=== PATIENT | female | born 1945 | race Caucasian/White ===

== ENCOUNTER 2016-06-14 16:34 | Emergency (ER) | payer MEDICARE, OTHER ==
[2016-06-14] MEDS ORDERED: Dextrose 50% Syringe 50 ML* 25 GM/50 ML SYRINGE ONE ×2 (16:46→16:47)
[2016-06-14 17:43] LABS: Hematocrit 42 % (35-47); Hemoglobin 13.9 g/dl (12.0-16.0); Mean Corpuscular HGB Conc 33 g/dl (31-36); Mean Corpuscular Hemoglobin 30 pg (27-31); Mean Corpuscular Volume 92 fL (80-97); Mean Platelet Volume 9 um3 (7.4-10.4); Red Blood Count 4.57 10^6/ul (4.0-5.4); Red Cell Distribution Width 14 % (10.5-15); White Blood Count 8.7 10^3/ul (3.5-10.8)
[2016-06-14 17:56] LABS: Albumin 4.2 g/dL (3.2-5.2); BUN/Creatinine Ratio 20.8 (8-20); Calcium 9.6 mg/dL (8.6-10.3); EGFR African American 69.7 (>60); EGFR Non-African American 54.2 (>60); Globulin 2.7 g/dL (2-4); Total Bilirubin 0.3 mg/dL (0.2-1.0); Total Protein 6.9 g/dL (6.4-8.9)
[2016-06-14 17:59] VITALS: BP 110/46
[2016-06-14 18:06] LABS: Potassium 3.8 mmol/L (3.5-5.0)
--- NOTE | 2016-06-14 19:07 | ED ---
Elsi Bojorquez Anna, scribed for Meño Andre MD on 06/14/16 at 1650 . Altered Mental Status - HPI Summary HPI Summary: Patient is a 71 y/o female coming to [facility] presenting with AMS that began today. She was found in the parking lot in her car. She reports that she did eat today. She is also experiencing diaphoresis. Denies CP, SOB, TRAN, dizziness. She came to the hospital to see her . LEVEL 5 CAVEAT UNABLE TO OBTAIN FULL HISTORY DUE TO ALTERED STATUS. - History Of Current Complaint Stated Complaint: AMS Hx Obtained From: Patient, EMS - Allergies/Home Medications Allergies/Adverse Reactions: Allergies Allergy/AdvReac Type Severity Reaction Status Date / Time Atorvastatin [From Lipitor] Allergy Intermediate GI Upset Verified 05/14/15 08: 33 Amoxicillin [From Augmentin] Allergy Nausea Verified 05/14/15 08:33 Clavulanic Acid Allergy Nausea Verified 05/14/15 08:33 [From Augmentin] Codeine Allergy Nausea Verified 05/14/15 08:33 Levofloxacin [From Levaquin] Allergy GI Upset Verified 05/14/15 08:33 Rosuvastatin [From Crestor] Allergy SORE THROAT Verified 05/14/15 08:33 Simvastatin [From Zocor] Allergy MYALGIA Verified 05/14/15 08:33 Tramadol Allergy N/V Verified 05/14/15 08:33 Venlafaxine [From Effexor] Allergy GI Upset Verified 05/14/15 08:33 PMH/Surg Hx/FS Hx/Imm Hx Endocrine/Hematology History: Reports: Hx Diabetes, Hx Thyroid Disease - hypothyroid, Other Endocrine/Hematological Disorders - Mingo's disease Denies: Hx Unexplained Bleeding Cardiovascular History: Denies: Hx Coronary Artery Disease, Hx Deep Vein Thrombosis, Hx Hypercholesterolemia, Hx Hypotension, Hx Hypertension, Hx Pacemaker/ICD, Hx Peripheral Vascular Disease, Hx Rheumatic Fever, Hx Syncope, Hx Valvular Heart Disease, Other Cardiovascular Problems/Disorders Respiratory History: Denies: Hx Asthma, Hx Chronic Bronchitis, Hx Chronic Obstructive Pulmonary Disease (COPD), Hx Cystic Fibrosis, Hx Lung Cancer, Hx Pleural Effusion, Hx Pneumonia, Hx Pulmonary Edema, Hx Pulmonary Embolism, Hx Seasonal Allergies, Hx Sleep Apnea, Other Respiratory Problems/Disorders Musculoskeletal History: Denies: Hx Osteoporosis Sensory History: Reports: Hx Cataracts - removed, Hx Contacts or Glasses Denies: Hx Hearing Aid Opthamlomology History: Reports: Hx Cataracts - removed, Hx Contacts or Glasses Neurological History: Denies: Hx Dementia, Hx Developmental Delay, Hx Headaches, Hx Migraine, Hx Seizures, Hx Spinal Cord Injury, Hx Transient Ischemic Attacks (TIA), Other Neuro Impairments/Disorders - Cancer History Hx Chemotherapy: No Hx Radiation Therapy: No - Surgical History Surgery Procedure, Year, and Place: . tubal Hx Anesthesia Reactions: No - Immunization History Date of Tetanus Vaccine: UNK Date of Influenza Vaccine: Fall 2011 Infectious Disease History: Denies: Hx Clostridium Difficile, Hx Hepatitis, Hx Human Immunodeficiency Virus (HIV), Hx of Known/Suspected MRSA, Hx Shingles, Hx Tuberculosis, Hx Known/ Suspected VRE, Hx Known/Suspected VRSA, History Other Infectious Disease, Traveled Outside the [place] in Last 30 Days - Family History Known Family History: Positive: Diabetes - Social History Occupation: Retired Lives: With Family Alcohol Use: None Substance Use Type: Reports: None Smoking Status (MU): Never Smoked Tobacco Review of Systems - ROS Summary Review of Systems Summary: LEVEL 5 CAVEAT UNABLE TO OBTAIN FULL HISTORY DUE TO ALTERED STATUS. Positive: Skin Diaphoresis Negative: Chest Pain Negative: Shortness Of Breath Neurological: Other - AMS, denies dizziness Negative: Headache All Other Systems Reviewed And Are Negative: No Physical Exam - Summary Physical Exam Summary: VITAL SIGNS: Reviewed. GENERAL: Patient is a well developed and nourished female who is slightly confused. who is lying comfortable in the stretcher. Patient is not in any acute respiratory distress. HEAD AND FACE: No signs of trauma. No ecchymosis, hematomas or skull depressions. No sinus tenderness. EYES: PERRLA, EOMI x 2, No injected conjunctiva, no nystagmus. EARS: Hearing grossly intact. Ear canals and tympanic membranes are within normal limits. MOUTH: Oropharynx within normal limits. NECK: Supple, trachea is midline, no adenopathy, no JVD, no carotid bruit, no c- spine tenderness, neck with full ROM. CHEST: Symmetric, no tenderness at palpation LUNGS: Clear to auscultation bilaterally. No wheezing or crackles. CVS: Regular rate and rhythm, S1 and S2 present, no murmurs or gallops appreciated. ABDOMEN: Soft, non-tender. No signs of distention. No rebound no guarding, and no masses palpated. Bowel sounds are normal. EXTREMITIES: FROM in all major joints, no edema, no cyanosis or clubbing. NEURO: Alert and oriented x 3. No acute neurological deficits. Speech is normal and follows commands. SKIN: Dry and warm, diaphoretic and clammy. Vital Signs On Initial Exam: Initial Vitals Temp Pulse Resp BP Pulse Ox 97.2 F 63 18 125/86 100 06/14/16 17:10 06/14/16 17:10 06/14/16 17:10 06/14/16 17:10 06/14/16 17:10 Diagnostics - Vital Signs Vital Signs Temp Pulse Resp BP Pulse Ox 06/14/16 17:10 97.2 F 63 18 125/86 100 - Laboratory Result Diagrams: 06/14/16 16:45 06/14/16 16:45 Lab Statement: Any lab studies that have been ordered have been reviewed, and results considered in the medical decision making process. Altered Mental Statu Course/Dx - Course Assessment/Plan: Patient is a 71 y/o female coming to [facility] presenting with AMS that began today. She was found in the parking lot in her car. She reports that she did eat today. She is also experiencing diaphoresis. Denies CP, SOB, TRAN, dizziness. FS shows glucose of 31. She was given an amp of D50 and now she is A+Ox3. She is back to her baseline. She reports she has hx IDDM and she is in an insulin pump. SHe reports eating 2 hours prior to this episode. Blood work wnl except for hypoglycemia. FS is 126. SHe continues to alert and oriented x 3. I discussed all my findings and test results with the patient. Patient understands and agrees. Patient was instructed to return to the emergency room immediately if any of the symptoms return or worsens. Patient understands and agrees. Plan of care was discussed with the patient and patient understands and agrees with the plan of care. All questions were answered at patient satisfaction. There were no further complaints or concerns. Patient was instructed to follow up with primary care - Diagnoses Differential Diagnosis/HQI/PQRI: Hypoglycemia, Intracranial Bleed, Medication Reaction Discharge Diagnoses: hypoglycemic episode Discharge - Discharge Plan Condition: Stable Disposition: HOME Patient Education Materials: Diabetic Hypoglycemia (ED) Referrals: Sheri Calderon MD [Primary Care Provider] - Additional Instructions: Follow up with primary care physician within 48 hours. Return to the emergency department for changing or worsening symptoms. The documentation as recorded by the Elsi avalos Anna accurately reflects the service I personally performed and the decisions made by , Meño Andre MD.
== END 2016-06-14 17:56 | disposition home or self-care (01) ==
LOC: ED 16:34
DX: E16.1 Other hypoglycemia (principal); R41.82 Altered mental status, unspecified; Z88.0 Allergy status to penicillin; Z88.6 Allergy status to analgesic agent
CPT/HCPCS: 36415; 80053; 85025; 99282

== ENCOUNTER 2016-07-15 08:45 | Emergency (ER) | payer MEDICARE, OTHER ==
[2016-07-15 08:50] VITALS: BP 115/77
[2016-07-15] MEDS ORDERED: NS 0.9% 1000 ML* 1,000 ML IV ONE (10:02)
[2016-07-15] MEDS ORDERED: Ondansetron INJ* 2 MG/ML VIAL IV ONE (10:06)
[2016-07-15 10:18] LABS: Hematocrit 43 % (35-47); Hemoglobin 13.8 g/dl (12.0-16.0); Mean Corpuscular HGB Conc 33 g/dl (31-36); Mean Corpuscular Hemoglobin 30 pg (27-31); Mean Corpuscular Volume 92 fL (80-97); Mean Platelet Volume 9 um3 (7.4-10.4); Red Blood Count 4.62 10^6/ul (4.0-5.4); Red Cell Distribution Width 14 % (10.5-15); White Blood Count 5.8 10^3/ul (3.5-10.8)
--- NOTE | 2016-07-15 10:30 | RAD ---
HISTORY: Altered mental status COMPARISONS: March 30, 2013 VIEWS:1: Single frontal portable view of the chest at 10:20 AM FINDINGS: LINES AND TUBES: None. CARDIOMEDIASTINAL SILHOUETTE: The cardiomediastinal silhouette is normal for portable technique. PLEURA: The costophrenic angles are sharp. No pleural abnormalities are noted. LUNG PARENCHYMA: The lungs are clear. ABDOMEN: The upper abdomen is clear. There is no subphrenic gas. BONES AND SOFT TISSUES: No bone or soft tissue abnormalities are noted. IMPRESSION: NO ACTIVE CARDIOPULMONARY DISEASE.
[2016-07-15 10:31] LABS: Albumin 3.9 g/dL (3.2-5.2); BUN/Creatinine Ratio 20.9 (8-20); C Reactive Protein 1.08 mg/L (< 5.00); Calcium 9.4 mg/dL (8.6-10.3); EGFR African American 78.6 (>60); EGFR Non-African American 61.1 (>60); Globulin 2.6 g/dL (2-4); Magnesium 2.2 mg/dL (1.9-2.7); Potassium 3.8 mmol/L (3.5-5.0); Total Bilirubin 0.5 mg/dL (0.2-1.0); Total Protein 6.5 g/dL (6.4-8.9)
--- NOTE | 2016-07-15 10:37 | RAD ---
HISTORY: Altered mental status COMPARISONS: September 02, 2005 TECHNIQUE: Multiple contiguous axial CT scans were obtained of the head without intravenous contrast. FINDINGS: HEMORRHAGE/INFARCT: There is no hemorrhage or acute infarct. MASSES/SHIFT: There is no mass or shift. EXTRA-AXIAL SPACES: There are no extra-axial fluid collections. SULCI AND VENTRICLES: The sulci and ventricles are normal in size and position for the patient's stated age. CEREBRUM: There are no focal parenchymal abnormalities. BRAINSTEM: There are no focal parenchymal abnormalities. CEREBELLUM: There are no focal parenchymal abnormalities. VESSELS: The vessels are grossly normal. PARANASAL SINUSES: The paranasal sinuses are clear. ORBITS: The orbits are unremarkable. BONES AND SOFT TISSUE: No bone or soft tissue abnormalities are noted. OTHER: None IMPRESSION: NO ACUTE INTRACRANIAL PATHOLOGY.
[2016-07-15 10:40] LABS: TSH (Thyroid Stimulating Horm) 2.49 mcIU/mL (0.34-5.60)
[2016-07-15] MEDS ORDERED: Dextrose 50% Syringe 50 ML* 25 GM/50 ML SYRINGE IV PUSH ONE (16:11)
[2016-07-15] MEDS ORDERED: Dextrose 50% Syringe 50 ML* 25 GM/50 ML SYRINGE ONE (16:12)
--- NOTE | 2016-07-15 20:05 | ED ---
IElsi Anna, scribed for Marvin Alexander MD on 07/15/16 at 1657 . Progress - Progress Note Progress Note: Patient was signed out from Dr. Smith at shift change. Patient's glucose was 170 initially and is now 37. Her insulin pack was removed. Re-Evaluation - Re-Evaluation First Eval Re-Evaluation Time: 16:58 Change: Improved Comment: Patient is no longer confused. Discussed results. Patient reports that she normally adjusts her insulin pump on her own. She does not remember being in an altered state this morning, and she says she has not eaten anything today. Course/Dx - Course Course Of Treatment: Radha Wright was turned over to me at change of shift. She was thought to have been hypoglycemic this AM and she was being observed. She became hypoglycemic here and symptomatic. She was given D50, her insulin pump was shut off and she had a sandwich. She recovered nicely and is very familiar with the pump and will adjust it down a bit and F/U with Dr. Calderon. She was D/C'd in stable condition with a diagnosis of hypoglycemia. - Diagnoses Provider Diagnoses: Altered mental state - Provider Notifications Discussed Care Of Patient With: Dr. Calderon (PCP) at 1724. Discussed patient results and treatment in the ED course. The documentation as recorded by the Elsi avalos Anna accurately reflects the service I personally performed and the decisions made by me, Marvin Alexander MD.
--- NOTE | 2016-07-18 06:57 | PN ---
Progress Note - Progress Note Note: stool cultures came back negative for shiga, c-diff, and cryptosporidium/ giardia. Patient was not placed on antibiotic and does not need to be at this time. No changes have to be made due to negative stool culture.
--- NOTE | 2016-08-02 21:18 | ED ---
Darrick Bojorquez Salem, scribed for Jacinto Smith MD on 07/15/16 at 1230 . Altered Mental Status - HPI Summary HPI Summary: Patient is a 71 y/o female who presents to the ED with AMS since earlier today. She reports nausea and vomiting, chills, but denies fever. She has Type 1 DM and suspects hypoglycemia as the cause of her AMS. She denies any focal weakness. - History Of Current Complaint Chief Complaint: EDAltMentalStatus Stated Complaint: AMS Time Seen by Provider: 07/15/16 08:52 Hx Obtained From: Patient Onset/Duration: Resolved Severity Initially: Moderate Severity Currently: Moderate Aggravating Factor(s): Nothing Alleviating Factor(s): Glucose Associated Signs And Symptoms: Positive: Nausea, Vomiting. Negative: Fever - Allergies/Home Medications Allergies/Adverse Reactions: Allergies Allergy/AdvReac Type Severity Reaction Status Date / Time Atorvastatin [From Lipitor] Allergy Intermediate GI Upset Verified 07/15/16 08: 45 Amoxicillin [From Augmentin] Allergy Nausea Verified 07/15/16 08:45 Clavulanic Acid Allergy Nausea Verified 07/15/16 08:45 [From Augmentin] Codeine Allergy Nausea Verified 07/15/16 08:45 Levofloxacin [From Levaquin] Allergy GI Upset Verified 07/15/16 08:45 Rosuvastatin [From Crestor] Allergy SORE THROAT Verified 07/15/16 08:45 Simvastatin [From Zocor] Allergy MYALGIA Verified 07/15/16 08:45 Tramadol Allergy N/V Verified 07/15/16 08:45 Venlafaxine [From Effexor] Allergy GI Upset Verified 07/15/16 08:45 PMH/Surg Hx/FS Hx/Imm Hx Endocrine/Hematology History: Reports: Hx Diabetes, Hx Thyroid Disease - hypothyroid, Other Endocrine/Hematological Disorders - [place]'s disease Denies: Hx Unexplained Bleeding Cardiovascular History: Denies: Hx Coronary Artery Disease, Hx Deep Vein Thrombosis, Hx Hypercholesterolemia, Hx Hypotension, Hx Hypertension, Hx Pacemaker/ICD, Hx Peripheral Vascular Disease, Hx Rheumatic Fever, Hx Syncope, Hx Valvular Heart Disease, Other Cardiovascular Problems/Disorders Respiratory History: Denies: Hx Asthma, Hx Chronic Bronchitis, Hx Chronic Obstructive Pulmonary Disease (COPD), Hx Cystic Fibrosis, Hx Lung Cancer, Hx Pleural Effusion, Hx Pneumonia, Hx Pulmonary Edema, Hx Pulmonary Embolism, Hx Seasonal Allergies, Hx Sleep Apnea, Other Respiratory Problems/Disorders Musculoskeletal History: Denies: Hx Osteoporosis Sensory History: Reports: Hx Cataracts - removed, Hx Contacts or Glasses Denies: Hx Hearing Aid Opthamlomology History: Reports: Hx Cataracts - removed, Hx Contacts or Glasses Neurological History: Denies: Hx Dementia, Hx Developmental Delay, Hx Headaches, Hx Migraine, Hx Seizures, Hx Spinal Cord Injury, Hx Transient Ischemic Attacks (TIA), Other Neuro Impairments/Disorders - Cancer History Hx Chemotherapy: No Hx Radiation Therapy: No - Surgical History Surgery Procedure, Year, and Place: . tubal Hx Anesthesia Reactions: No - Immunization History Date of Tetanus Vaccine: UNK Date of Influenza Vaccine: Fall 2011 Infectious Disease History: No Infectious Disease History: Denies: Hx Clostridium Difficile, Hx Hepatitis, Hx Human Immunodeficiency Virus (HIV), Hx of Known/Suspected MRSA, Hx Shingles, Hx Tuberculosis, Hx Known/ Suspected VRE, Hx Known/Suspected VRSA, History Other Infectious Disease, Traveled Outside the [place] in Last 30 Days - Family History Known Family History: Positive: Diabetes - Social History Alcohol Use: None Substance Use Type: Reports: None Smoking Status (MU): Never Smoked Tobacco Review of Systems Positive: Chills. Negative: Fever Positive: Vomiting, Nausea Negative: Weakness All Other Systems Reviewed And Are Negative: Yes Physical Exam Triage Information Reviewed: Yes Vital Signs On Initial Exam: Initial Vitals Temp Pulse Resp BP Pulse Ox 97.8 F 69 18 115/77 100 07/15/16 08:45 07/15/16 08:45 07/15/16 08:45 07/15/16 08:45 07/15/16 08:45 Vital Signs Reviewed: Yes Appearance: Positive: Well-Appearing, No Pain Distress Skin: Positive: Warm, Skin Color Reflects Adequate Perfusion, Dry Head/Face: Positive: Normal Head/Face Inspection Eyes: Positive: EOMI, GAETANO ENT: Positive: Normal ENT inspection Neck: Positive: Supple, Nontender Respiratory/Lung Sounds: Positive: Clear to Auscultation, Breath Sounds Present Cardiovascular: Positive: RRR Abdomen Description: Positive: Nontender, Soft Bowel Sounds: Positive: Present Musculoskeletal: Positive: Normal, Strength/ROM Intact Neurological: Positive: Normal, Sensory/Motor Intact, Alert, Oriented to Person Place, Time Psychiatric: Positive: Affect/Mood Appropriate Diagnostics - Vital Signs Vital Signs Temp Pulse Resp BP Pulse Ox 07/15/16 08:45 97.8 F 69 18 115/77 100 - Laboratory Lab Results: Lab Results 07/15/16 Range/Units 09:48 WBC 5.8 (3.5-10.8) 10^3/ul RBC 4.62 (4.0-5.4) 10^6/ul Hgb 13.8 (12.0-16.0) g/dl Hct 43 (35-47) % MCV 92 (80-97) fL MCH 30 (27-31) pg MCHC 33 (31-36) g/dl RDW 14 (10.5-15) % Plt Count 151 (150-450) 10^3/ul MPV 9 (7.4-10.4) um3 Neut % (Auto) 60.0 (38-83) % Lymph % (Auto) 26.9 (25-47) % [place] % (Auto) 9.4 H (1-9) % Eos % (Auto) 3.2 (0-6) % Baso % (Auto) 0.5 (0-2) % Absolute Neuts (auto) 3.5 (1.5-7.7) 10^3/ul Absolute Lymphs (auto) 1.6 (1.0-4.8) 10^3/ul Absolute Monos (auto) 0.5 (0-0.8) 10^3/ul Absolute Eos (auto) 0.2 (0-0.6) 10^3/ul Absolute Basos (auto) 0 (0-0.2) 10^3/ul Absolute Nucleated RBC 0.01 10^3/ul Nucleated RBC % 0.2 Result Diagrams: 07/15/16 09:48 07/15/16 09:48 Lab Statement: Any lab studies that have been ordered have been reviewed, and results considered in the medical decision making process. - Radiology CXR Radiology Interpretation Completed By: Radiologist - IMPRESSION: NO ACTIVE CARDIOPULMONARY DISEASE. - CT BRAIN CT Interpretation Completed By: Radiologist - IMPRESSION: NO ACUTE INTRACRANIAL PATHOLOGY. - EKG 0849 EKG Interpretation: NSR @ 66bpm. No ST changes. No ectopy. Altered Mental Statu Course/Dx - Course Assessment/Plan: PATIENT FEELS WELL IN ED AND WISHES TO GO HOME. DISCUSSED ADMISSION WITH PATIENT, SHE DECLINES ADMISSION. DISCHARGE HOME STABLE. - Diagnoses Discharge Diagnoses: Altered mental state Discharge - Discharge Plan Condition: Stable Disposition: HOME Patient Education Materials: Insulin Human Regular (By injection), Diabetic Hypoglycemia (ED) Referrals: Sheri Calderon MD [Primary Care Provider] - Additional Instructions: FOLLOW UP WITH YOUR DOCTOR AND CHECK YOUR BLOOD SUGAR REGULARLY. RETURN TO THE EMERGENCY DEPARTMENT FOR ANY WORSENING OF YOUR CONDITION OR QUESTIONS OR CONCERNS. The documentation as recorded by the Darrick avalos Salem accurately reflects the service I personally performed and the decisions made by me, Jacinto Smith MD.
== END 2016-07-15 20:16 | disposition home or self-care (01) ==
LOC: ED 08:45
DX: E16.2 Hypoglycemia, unspecified (principal); R41.82 Altered mental status, unspecified
CPT/HCPCS: 36415; 70450; 71010; 80053; 82272; 82550; 82553; 83605; 83630; 83690; 83735; 83880; 84443; 84484; 85025; 85610; 85730; 86140; 87045; 87046; 87077; 87328; 87329; 87493; 87899; 93005; 96374; 99283; J2405

== ENCOUNTER 2017-04-24 23:36 | Inpatient (IN) | payer MEDICARE, OTHER ==
[2017-04-25] MEDS ORDERED: NS 0.9% 1000 ML* 2,000 ML IV ONE
[2017-04-25] MEDS ORDERED: Ciprofloxacin 400MG IVPREMIX(* 400 MG/200 ML BAG IVPB ONE (00:04)
[2017-04-25] MEDS ORDERED: metroNIDAZOLE IV 500 MG/100ML* 500 MG/100 ML BAG IVPB ONE (00:04)
[2017-04-25] MEDS ORDERED: Vancomycin(*) 1,000 MG VIAL IVPB SCH (01:00)
[2017-04-25] MEDS ORDERED: Vancomycin(*) 1,000 MG in NS 0.9% 250 ML* 250 ML IVPB ONE (01:00)
[2017-04-25 01:49] LABS: ALT 10 U/L (7-52); AST 25 U/L (13-39); Albumin 3.9 g/dL (3.2-5.2); Alkaline Phosphatase 42 U/L (34-104); Anion Gap 12 mmol/L (2-11); BUN/Creatinine Ratio 18.4 (8-20); Blood Urea Nitrogen 33 mg/dL (6-24); C Reactive Protein 66.99 mg/L (< 5.00); CO2 Carbon Dioxide 21 mmol/L (22-32); Calcium 10.2 mg/dL (8.6-10.3); Chloride 87 mmol/L (101-111); EGFR African American 35.9 (>60); EGFR Non-African American 27.9 (>60); Glucose 147 mg/dL (70-100); Lipase < 10 U/L (11.0-82.0); Magnesium 1.5 mg/dL (1.9-2.7); Potassium 4.9 mmol/L (3.5-5.0); Sodium 120 mmol/L (133-145); Total Protein 6.9 g/dL (6.4-8.9)
[2017-04-25 01:50] LABS: Troponin I 0.01 ng/mL (<0.04)
[2017-04-25 02:15] LABS: Hematocrit 41 % (35-47); Hemoglobin 14.2 g/dl (12.0-16.0); Mean Corpuscular HGB Conc 35 g/dl (31-36); Mean Corpuscular Hemoglobin 31 pg (27-31); Mean Corpuscular Volume 89 fL (80-97); Mean Platelet Volume 9 um3 (7.4-10.4); Red Blood Count 4.63 10^6/ul (4.0-5.4); Red Cell Distribution Width 13 % (10.5-15); White Blood Count 6.9 10^3/ul (3.5-10.8)
[2017-04-25] MEDS ORDERED: Hydrocortisone INJ* 100 MG VIAL IV ONE (02:33)
[2017-04-25] MEDS ORDERED: Magnesium Sulfate 2 GM IV* 2 GM/50 ML BAG IVPB ONE ×2 (02:35→02:37)
[2017-04-25] MEDS ORDERED: Docusate CAP* 100 MG PO PRN (02:35)
[2017-04-25] MEDS ORDERED: Al Hydrox/Mg Hydrox/Simet LIQ* 30 ML UDC PO PRN (02:35)
[2017-04-25] MEDS ORDERED: Senna TAB PO PRN (02:35)
[2017-04-25] MEDS ORDERED: Acetaminophen TAB* 325 MG PO PRN (02:35)
[2017-04-25] MEDS ORDERED: Ondansetron INJ* 2 MG/ML VIAL IV PRN (02:35)
[2017-04-25] MEDS ORDERED: NS 0.9% 1000 ML* 1,000 ML IV ONE (02:38)
[2017-04-25] MEDS ORDERED: NS 0.9% 1000 ML* 1,000 ML IV SCH (02:45)
[2017-04-25] MEDS ORDERED: Haloperidol INJ IV/IM* 5 MG/ML AMP ONE (03:53)
--- NOTE | 2017-04-25 03:53 | HP ---
CC: Sheri Calderon MD * HISTORY AND PHYSICAL: DATE OF ADMISSION: 04/25/17 TIME OF EVALUATION: 2 a.m. PRIMARY CARE PHYSICIAN: Sheri Calderon MD CHIEF COMPLAINT: Altered mental status. HISTORY OF PRESENT ILLNESS: Please note the patient is not able to provide history due to her altered mental status. History is obtained by the ER staff. It appears that the neighbors were concerned about the patient's acute onset of altered mental status. There was concern about her falling and then EMS was called to bring her to the emergency room. Of note, her was admitted early this morning for small bowel obstruction. The ER nursing staff spoke with her on the phone and she was alert and oriented and seemed completely appropriate at that time. On my encounter, patient denies any pain. She denies any medical problem. She is only able to tell me her name, otherwise I am not able to get any meaningful interaction from her. According to her prior records, in the emergency room, the patient had labs, imaging. She has been given 1 L of normal saline. She has been ordered Cipro, Flagyl and vancomycin and referred to the hospitalist service for further evaluation. PAST MEDICAL HISTORY: According to the records, past medical history of: 1. Looney syndrome, which includes hypothyroidism and Stef's disease. 2. Diabetes. 3. Hypertension. 4. Lactose intolerance. PAST SURGICAL HISTORY: 1. Tubal ligation. 2. Tonsillectomy. 3. . 4. Removal of fibroadenoma of the left breast. 4. Bilateral cataract extractions. MEDICATIONS: Unknown. ALLERGIES: ATORVASTATIN, AMOXICILLIN, CLAVULANIC ACID, CODEINE, LEVOFLOXACIN, ROSUVASTATIN, SIMVASTATIN, TRAMADOL, EFFEXOR. FAMILY HISTORY: Unknown. SOCIAL HISTORY: It appears the patient has been living at home with her who also of note is admitted in the hospital with small bowel obstruction. Per records, no history of tobacco, alcohol, or illicit drug use. CODE STATUS: Unclear on her code status. REVIEW OF SYSTEMS: Unable to obtain due to the patient's altered mental status. PHYSICAL EXAMINATION GENERAL: The patient is restless in the bed, in no acute rest. VITAL SIGNS: Temp 99.9, pulse rate 99, respiratory rate 16, oxygen saturation 96% on room air, blood pressure 82/50. HEENT: Head: Normocephalic. Pupils equal and reactive. Anicteric. Oropharynx: Mucous membranes are dry. Lips are dry. NECK: Supple. No lymphadenopathy. RESPIRATORY: Poor respiratory effort. Diminished breath sounds. No wheezes, rhonchi, or rales. CARDIAC: Regular rate and rhythm. No murmurs, rubs, or gallops. ABDOMEN: Soft, nontender, nondistended. EXTREMITIES: No clubbing, cyanosis, or edema. +1 DPs. NEUROLOGIC: The patient is alert and oriented x1, oriented to self only. Patient is spontaneously moving all extremities, unable to follow any commands. No obvious gross neurologic deficits. LABORATORY DATA: White count 6.9, hemoglobin 14.2, hematocrit 41, platelets 259. INR 1.10. Sodium 120, potassium 4.9, chloride 87, bicarb 21, BUN 33, creatinine 1.79. Glucose 147, magnesium 1.5. Troponin 0.01. CRP 66. BNP 13. RADIOGRAPHIC DATA: EKG shows sinus tachycardia. Head CT shows no acute brain parenchymal abnormality and no change since 07/15/16. No hemorrhage, mass, or acute territorial infarct, age related involutional changes and chronic small vessel ischemia changes. Clear visualized paranasal sinuses, visualized mastoid air cells are clear. Chest x-ray, on wet read no significant findings. ASSESSMENT: This is a 72-year-old female with past medical history of diabetes , hypothyroidism, Ballard's disease, who presents to the emergency room with acute onset of altered mental status. 1. Altered mental status. The patient with history of Ballard's disease, now with hyponatremia and hypotension. Concern for adrenal crisis. With her being in the emergency room, it is possibly she missed a few doses, which tripped her off and she appears dry on exam with renal failure as well. Plan: We will admit her to the ICU. In the setting of soft blood pressure, we will stress dose her with hydrocortisone 100 mg IV now and then q.8. We will continue on aggressive fluid resuscitation. We will monitor blood glucoses closely. Replete her potassium and repeat her labs in the morning. We will check a serum osmolarity, urine osmolarity and urine sodium. I suspect this is hyponatremia secondary to hypovolemia. Patient has been covered with broad- spectrum antibiotics in the emergency room. There is no focal sign of infection. She had blood cultures drawn. We will hold off on continuing any further antibiotics without any focal source of infection and repeat her blood work in the morning. 2. Chronic medical problems. We will need to obtain a med reconciliation in the morning and to call her pharmacy and to follow up with her primary care physician, Dr. Calderon. We will let her know of her admission. 3. FEN: We will keep the patient NPO. I am concerned about her safety with high risk of aspiration, do bedside swallow prior to taking p.o. 4. DVT prophylaxis: Patient scores high risk. We will place her on heparin subcu t.i.d. 5. Code status: Presumably full code. TIME SPENT: Patient time, greater than 60 minutes was spent doing the history and physical, more than half the time spent in direct patient contact. [id number]/CPS #: [id number] EGOVANNA
--- NOTE | 2017-04-25 04:13 | ED ---
Eugenia Bojorquez Gabriel, scribed for Luciano Pickett on 04/24/17 at 2358 . Altered Mental Status - HPI Summary HPI Summary: This patient is a 72 year old F BIBS to [facility] with a chief complaint of AMS with unknown onset. Patients neighbors report she fell yesterday and the patient stated that she also fell tonight but has redacted that statement. Patient is confused and last normal mental status was 500 this morning. - History Of Current Complaint Stated Complaint: AMS Time Seen by Provider: 04/24/17 23:41 Hx Obtained From: Patient, Other: - neighbor Hx From Patient Unobtainable Due To: Altered Mental Status Onset/Duration: Still Present Timing: Constant Character: Confusion - Allergies/Home Medications Allergies/Adverse Reactions: Allergies Allergy/AdvReac Type Severity Reaction Status Date / Time Atorvastatin [From Lipitor] Allergy Intermediate GI Upset Verified 07/15/16 08: 45 Amoxicillin [From Augmentin] Allergy Nausea Verified 07/15/16 08:45 Clavulanic Acid Allergy Nausea Verified 07/15/16 08:45 [From Augmentin] Codeine Allergy Nausea Verified 07/15/16 08:45 Levofloxacin [From Levaquin] Allergy GI Upset Verified 07/15/16 08:45 Rosuvastatin [From Crestor] Allergy SORE THROAT Verified 07/15/16 08:45 Simvastatin [From Zocor] Allergy MYALGIA Verified 07/15/16 08:45 Tramadol Allergy N/V Verified 07/15/16 08:45 Venlafaxine [From Effexor] Allergy GI Upset Verified 07/15/16 08:45 PMH/Surg Hx/FS Hx/Imm Hx Previously Healthy: No Endocrine/Hematology History: Reports: Hx Diabetes, Hx Thyroid Disease - hypothyroid, Other Endocrine/Hematological Disorders - [place]'s disease Denies: Hx Unexplained Bleeding Cardiovascular History: Denies: Hx Coronary Artery Disease, Hx Deep Vein Thrombosis, Hx Hypercholesterolemia, Hx Hypotension, Hx Hypertension, Hx Pacemaker/ICD, Hx Peripheral Vascular Disease, Hx Rheumatic Fever, Hx Syncope, Hx Valvular Heart Disease, Other Cardiovascular Problems/Disorders Respiratory History: Denies: Hx Asthma, Hx Chronic Bronchitis, Hx Chronic Obstructive Pulmonary Disease (COPD), Hx Cystic Fibrosis, Hx Lung Cancer, Hx Pleural Effusion, Hx Pneumonia, Hx Pulmonary Edema, Hx Pulmonary Embolism, Hx Seasonal Allergies, Hx Sleep Apnea, Other Respiratory Problems/Disorders Musculoskeletal History: Denies: Hx Osteoporosis Sensory History: Reports: Hx Cataracts - removed, Hx Contacts or Glasses Denies: Hx Hearing Aid Opthamlomology History: Reports: Hx Cataracts - removed, Hx Contacts or Glasses Neurological History: Denies: Hx Dementia, Hx Developmental Delay, Hx Headaches, Hx Migraine, Hx Seizures, Hx Spinal Cord Injury, Hx Transient Ischemic Attacks (TIA), Other Neuro Impairments/Disorders - Cancer History Hx Chemotherapy: No Hx Radiation Therapy: No - Surgical History Surgery Procedure, Year, and Place: . tubal Hx Anesthesia Reactions: No - Immunization History Date of Tetanus Vaccine: UNK Date of Influenza Vaccine: Fall 2011 Infectious Disease History: Denies: Hx Clostridium Difficile, Hx Hepatitis, Hx Human Immunodeficiency Virus (HIV), Hx of Known/Suspected MRSA, Hx Shingles, Hx Tuberculosis, Hx Known/ Suspected VRE, Hx Known/Suspected VRSA, History Other Infectious Disease, Traveled Outside the in Last 30 Days - Family History Known Family History: Positive: Diabetes - Social History Alcohol Use: None Substance Use Type: Reports: None Smoking Status (MU): Never Smoked Tobacco Review of Systems Positive: Other - AMS All Other Systems Reviewed And Are Negative: Yes Physical Exam - Summary Physical Exam Summary: Appearance: confused and lethargic Skin: warm, dry, reflects adequate perfusion Head/face: normal Eyes: EOMI, GAETANO ENT: normal Neck: supple, non-tender Respiratory: CTA, breath sounds present Cardiovascular: RRR, pulses symmetrical Abdomen: non-tender, soft Bowel: present Musculoskeletal: no edema Neuro: confused Triage Information Reviewed: Yes Vital Signs On Initial Exam: Initial Vitals Temp Pulse Resp BP Pulse Ox 99.9 F 99 16 82/50 96 04/25/17 00:00 04/25/17 00:00 04/25/17 00:00 04/25/17 00:00 04/25/17 00:00 Vital Signs Reviewed: Yes Diagnostics - Vital Signs Vital Signs Temp Pulse Resp BP Pulse Ox 04/25/17 00:00 99.9 F 99 16 82/50 96 - Laboratory Lab Results: Lab Results 04/25/17 04/25/17 04/25/17 Range/Units 01:03 02:00 02:00 WBC 6.9 (3.5-10.8) 10^3/ul RBC 4.63 (4.0-5.4) 10^6/ul Hgb 14.2 (12.0-16.0) g/dl Hct 41 (35-47) % MCV 89 (80-97) fL MCH 31 (27-31) pg MCHC 35 (31-36) g/dl RDW 13 (10.5-15) % Plt Count 259 (150-450) 10^3/ul MPV 9 (7.4-10.4) um3 Neut % (Auto) 57.1 (38-83) % Lymph % (Auto) 23.5 L (25-47) % Latimer % (Auto) 16.2 H (1-9) % Eos % (Auto) 2.6 (0-6) % Baso % (Auto) 0.6 (0-2) % Absolute Neuts (auto) 3.9 (1.5-7.7) 10^3/ul Absolute Lymphs (auto) 1.6 (1.0-4.8) 10^3/ul Absolute Monos (auto) 1.1 H (0-0.8) 10^3/ul Absolute Eos (auto) 0.2 (0-0.6) 10^3/ul Absolute Basos (auto) 0 (0-0.2) 10^3/ul Absolute Nucleated RBC 0 10^3/ul Nucleated RBC % 0 INR (Anticoag Therapy) (0.89-1.11) APTT (26.0-36.3) seconds Sodium 120 L (133-145) mmol/L Potassium 4.9 (3.5-5.0) mmol/L Chloride 87 L (101-111) mmol/L Carbon Dioxide 21 L (22-32) mmol/L Anion Gap 12 H (2-11) mmol/L BUN 33 H (6-24) mg/dL Creatinine 1.79 H (0.51-0.95) mg/dL Est GFR ( Amer) 35.9 (>60) Est GFR (Non-Af Amer) 27.9 (>60) BUN/Creatinine Ratio 18.4 (8-20) Glucose 147 H (70-100) mg/dL Calcium 10.2 (8.6-10.3) mg/dL Magnesium 1.5 L (1.9-2.7) mg/dL Total Bilirubin 0.80 (0.2-1.0) mg/dL AST 25 (13-39) U/L ALT 10 (7-52) U/L Alkaline Phosphatase 42 (34-104) U/L Troponin I 0.01 (<0.04) ng/mL C-Reactive Protein 66.99 H (< 5.00) mg/L B-Natriuretic Peptide 13 ( - 100) pg/mL Total Protein 6.9 (6.4-8.9) g/dL Albumin 3.9 (3.2-5.2) g/dL Globulin 3.0 (2-4) g/dL Albumin/Globulin Ratio 1.3 (1-3) Lipase < 10 L (11.0-82.0) U/L TSH Pending Cortisol Pending 04/25/17 Range/Units 02:00 WBC (3.5-10.8) 10^3/ul RBC (4.0-5.4) 10^6/ul Hgb (12.0-16.0) g/dl Hct (35-47) % MCV (80-97) fL MCH (27-31) pg MCHC (31-36) g/dl RDW (10.5-15) % Plt Count (150-450) 10^3/ul MPV (7.4-10.4) um3 Neut % (Auto) (38-83) % Lymph % (Auto) (25-47) % [place] % (Auto) (1-9) % Eos % (Auto) (0-6) % Baso % (Auto) (0-2) % Absolute Neuts (auto) (1.5-7.7) 10^3/ul Absolute Lymphs (auto) (1.0-4.8) 10^3/ul Absolute Monos (auto) (0-0.8) 10^3/ul Absolute Eos (auto) (0-0.6) 10^3/ul Absolute Basos (auto) (0-0.2) 10^3/ul Absolute Nucleated RBC 10^3/ul Nucleated RBC % INR (Anticoag Therapy) 1.10 (0.89-1.11) APTT 36.9 H (26.0-36.3) seconds Sodium (133-145) mmol/L Potassium (3.5-5.0) mmol/L Chloride (101-111) mmol/L Carbon Dioxide (22-32) mmol/L Anion Gap (2-11) mmol/L BUN (6-24) mg/dL Creatinine (0.51-0.95) mg/dL Est GFR ( Amer) (>60) Est GFR (Non-Af Amer) (>60) BUN/Creatinine Ratio (8-20) Glucose (70-100) mg/dL Calcium (8.6-10.3) mg/dL Magnesium (1.9-2.7) mg/dL Total Bilirubin (0.2-1.0) mg/dL AST (13-39) U/L ALT (7-52) U/L Alkaline Phosphatase (34-104) U/L Troponin I (<0.04) ng/mL C-Reactive Protein (< 5.00) mg/L B-Natriuretic Peptide ( - 100) pg/mL Total Protein (6.4-8.9) g/dL Albumin (3.2-5.2) g/dL Globulin (2-4) g/dL Albumin/Globulin Ratio (1-3) Lipase (11.0-82.0) U/L TSH Cortisol Result Diagrams: 04/25/17 02:00 04/25/17 01:03 Lab Statement: Any lab studies that have been ordered have been reviewed, and results considered in the medical decision making process. - CT CT Head CT Interpretation Completed By: Radiologist - No acute brain abnormality and age related changes in blood vessels ED physician has reviewed this radiology report and agrees. - EKG 1:10 Cardiac Rate: Tachycardia EKG Rhythm: Sinus Tachycardia - 102 BPM Altered Mental Statu Course/Dx - Course Assessment/Plan: This patient is a 72 year old F BIBS to [facility] with a chief complaint of AMS. An EKG reveals sinus tachycardia. CXR reveals no evidence for acute disease. CT Head reveals, per radiologist, No acute brain abnormality and age related changes in blood vessels. Blood work was done with no significant test results. We discussed patient care with Dr. Gonzales and they agreed to admit the patient for AMS, dehydration, and hyponatremia. Patient will be admitted to [facility] with follow up from Dr. Gonzales. The patient is agreeable with this plan. - Diagnoses Differential Diagnosis/HQI/PQRI: Intracranial Bleed, Metabolic Disorder, Sepsis , TIA Discharge Diagnoses: Altered mental status, Dehydration, Hyponatremia - Critical Care Time Critical Care Time: 30-74 min - 30 minutes Discharge - Discharge Plan Condition: Stable Disposition: ADMITTED TO [facility] The documentation as recorded by the Eugenia avalos Gabriel accurately reflects the service I personally performed and the decisions made by , Luciano Pickett.
[2017-04-25] MEDS: Haloperidol INJ IV/IM* 5 MG/ML AMP IV SLOW PU PRN (04:19)
[2017-04-25 04:32] LABS: TSH (Thyroid Stimulating Horm) 35.63 mcIU/mL (0.34-5.60)
[2017-04-25 05:15] LABS: Hematocrit 44 % (35-47); Hemoglobin 14.8 g/dl (12.0-16.0); Mean Corpuscular HGB Conc 34 g/dl (31-36); Mean Corpuscular Hemoglobin 31 pg (27-31); Mean Corpuscular Volume 91 fL (80-97); Mean Platelet Volume 9 um3 (7.4-10.4); Red Blood Count 4.81 10^6/ul (4.0-5.4); Red Cell Distribution Width 13 % (10.5-15); White Blood Count 6.5 10^3/ul (3.5-10.8)
[2017-04-25 05:41] LABS: BUN/Creatinine Ratio 19.8 (8-20); Blood Urea Nitrogen 33 mg/dL (6-24); CO2 Carbon Dioxide 19 mmol/L (22-32); Calcium 9.9 mg/dL (8.6-10.3); Chloride 90 mmol/L (101-111); EGFR African American 38.9 (>60); EGFR Non-African American 30.2 (>60); Glucose 107 mg/dL (70-100); Sodium 122 mmol/L (133-145)
[2017-04-25 05:44] LABS: Anion Gap 13 mmol/L (2-11)
--- NOTE | 2017-04-25 07:56 | RAD ---
INDICATION: Altered mental status COMPARISON: Most recent comparison chest x-rays dated July 15, 2016 TECHNIQUE: Single AP portable view of the chest was obtained. FINDINGS: Image quality is compromised due to the relative inferiority of a portable chest x-ray. The heart and mediastinum exhibit normal size and contour. The lungs are grossly clear. There is no evidence of a large pleural effusion. Visualized bones are normal for the patient's age. IMPRESSION: No radiographic evidence for acute cardiopulmonary abnormality on this portable chest x-ray.
--- NOTE | 2017-04-25 07:56 | RAD ---
INDICATION: Altered mental status COMPARISON: Similar CT of the brain dated July 15, 2016 TECHNIQUE: Contiguous axial sections of the brain were obtained from the skull base to the vertex without contrast. FINDINGS: The ventricles, cisterns and sulci are within normal limits. The castaneda-white matter differentiation is adequately maintained and there is no sulcal effacement. No significant focal abnormality or mass effect is present. There is no evidence for intracranial hemorrhage. No significant focal osseous abnormality is present. The visualized portion of the paranasal sinuses and mastoid air cells appear clear. IMPRESSION: Normal CT of the brain.
[2017-04-25] MEDS ORDERED: NS 0.9% 500 ML* 500 ML IV SCH ×2 (10:00→12:30)
[2017-04-25] MEDS: Heparin VIAL(*) 5000 UNITS/ML VIAL (FIVE THOUSAND) SUBCUT SCH ×3 (10:17→22:50)
[2017-04-25] MEDS: Hydrocortisone INJ* 100 MG VIAL IV SCH ×2 (12:17→19:49)
[2017-04-25 12:22] LABS: Urine Bacteria Absent (Absent); Urine Bilirubin Negative (Negative); Urine Glucose Negative (Negative); Urine Nitrite Negative (Negative)
[2017-04-25] MEDS: Fludrocortisone Acetate TAB* 0.1 MG PO SCH (14:05)
[2017-04-25] MEDS: Levothyroxine TAB* 88 MCG TAB PO SCH ×2 (14:06→14:56)
[2017-04-25] MEDS: NS 0.9% w/ 20 Meq KCL 1000 ML* 1,000 ML IV SCH (14:57)
[2017-04-25 16:37] LABS: BUN/Creatinine Ratio 20.5 (8-20); C Reactive Protein 76.56 mg/L (< 5.00); Calcium 8.3 mg/dL (8.6-10.3); EGFR African American 58.6 (>60); EGFR Non-African American 45.6 (>60)
[2017-04-25] MEDS: Nystatin TOP POWDER* 15 GM BTL TOPICAL SCH (17:02)
[2017-04-25] MEDS: Insulin LISPRO* 1 UNITS UNIT SUBCUT SCH (17:09)
[2017-04-26] MEDS ORDERED: Insulin LISPRO* 1 UNITS UNIT SUBCUT ONE ×3 (00:26→17:55)
[2017-04-26] MEDS ORDERED: Insulin GLARGINE(*) 1 UNITS UNIT ONE (00:43)
[2017-04-26] MEDS: NS 0.9% w/ 20 Meq KCL 1000 ML* 1,000 ML IV SCH (00:58)
[2017-04-26] MEDS: Insulin GLARGINE(*) 1 UNITS UNIT SUBCUT SCH ×2 (00:59→21:46)
[2017-04-26] MEDS: Hydrocortisone INJ* 100 MG VIAL IV SCH (03:54)
[2017-04-26] MEDS: Levothyroxine TAB* 88 MCG TAB PO SCH (06:00)
[2017-04-26] MEDS: Heparin VIAL(*) 5000 UNITS/ML VIAL (FIVE THOUSAND) SUBCUT SCH ×3 (06:00→22:55)
[2017-04-26 06:14] LABS: Hematocrit 34 % (35-47); Hemoglobin 11.1 g/dl (12.0-16.0); Mean Corpuscular HGB Conc 33 g/dl (31-36); Mean Corpuscular Hemoglobin 31 pg (27-31); Mean Corpuscular Volume 93 fL (80-97); Mean Platelet Volume 9 um3 (7.4-10.4); Red Blood Count 3.64 10^6/ul (4.0-5.4); Red Cell Distribution Width 14 % (10.5-15); White Blood Count 8.3 10^3/ul (3.5-10.8)
[2017-04-26 06:32] LABS: Albumin 2.9 g/dL (3.2-5.2); C Reactive Protein 66.43 mg/L (< 5.00); Calcium 8.1 mg/dL (8.6-10.3); EGFR African American 58.1 (>60); EGFR Non-African American 45.2 (>60); Globulin 2.3 g/dL (2-4); Magnesium 1.8 mg/dL (1.9-2.7); Total Bilirubin 0.5 mg/dL (0.2-1.0); Total Protein 5.2 g/dL (6.4-8.9)
[2017-04-26] MEDS: Insulin LISPRO* 1 UNITS UNIT SUBCUT SCH ×7 (07:24→22:49)
[2017-04-26] MEDS ORDERED: Insulin GLARGINE(*) 1 UNITS UNIT SUBCUT ONE ×2 (08:00→23:00)
[2017-04-26] MEDS: Nystatin TOP POWDER* 15 GM BTL TOPICAL SCH ×2 (09:28→22:51)
[2017-04-26] MEDS: Fludrocortisone Acetate TAB* 0.1 MG PO SCH (09:35)
[2017-04-26] MEDS: Citalopram TAB* 10 MG PO SCH (09:35)
[2017-04-26] MEDS ORDERED: Dextrose 50% Syringe 50 ML* 25 GM/50 ML SYRINGE IV PUSH PRN (10:09)
[2017-04-26] MEDS ORDERED: Magnesium Sulfate 2 GM IV IVPB ONE (11:00)
[2017-04-26] MEDS ORDERED: Insulin LISPRO* 1 UNITS UNIT SUBCUT SCH (11:30)
[2017-04-26] MEDS: Hydrocortisone TAB* 10 MG PO SCH ×2 (12:09→18:26)
[2017-04-26] MEDS: Potassium & Sodium Phos 250MG* = 1 PACKET PO SCH ×2 (13:25→22:54)
[2017-04-26 17:10] LABS: BUN/Creatinine Ratio 30.2 (8-20); Calcium 8.3 mg/dL (8.6-10.3); EGFR African American 59.2 (>60); EGFR Non-African American 46.1 (>60)
[2017-04-26 17:13] LABS: Potassium 5.2 mmol/L (3.5-5.0)
[2017-04-26] MEDS: Insulin LISPRO* 1 UNITS UNIT SUBCUT ONE (22:48)
[2017-04-27] MEDS: Insulin LISPRO* 1 UNITS UNIT SUBCUT ONE (02:54)
[2017-04-27 04:45] LABS: Hematocrit 26 % (35-47); Hemoglobin 8.8 g/dl (12.0-16.0); Mean Corpuscular HGB Conc 34 g/dl (31-36); Mean Corpuscular Hemoglobin 31 pg (27-31); Mean Corpuscular Volume 91 fL (80-97); Mean Platelet Volume 9 um3 (7.4-10.4); Red Blood Count 2.84 10^6/ul (4.0-5.4); Red Cell Distribution Width 14 % (10.5-15); White Blood Count 6.3 10^3/ul (3.5-10.8)
[2017-04-27 05:06] LABS: Anion Gap 8 mmol/L (2-11); BUN/Creatinine Ratio 34.8 (8-20); Blood Urea Nitrogen 32 mg/dL (6-24); C Reactive Protein 35.99 mg/L (< 5.00); CO2 Carbon Dioxide 16 mmol/L (22-32); Calcium 7.8 mg/dL (8.6-10.3); Chloride 106 mmol/L (101-111); EGFR African American 77.4 (>60); EGFR Non-African American 60.2 (>60); Glucose 181 mg/dL (70-100); Phosphorus 1.2 mg/dL (2.5-5.0); Sodium 130 mmol/L (133-145)
[2017-04-27] MEDS: Haloperidol INJ IV/IM* 5 MG/ML AMP IV SLOW PU PRN ×3 (05:43→23:21)
[2017-04-27] MEDS: Levothyroxine TAB* 88 MCG TAB PO SCH (06:43)
[2017-04-27] MEDS: Heparin VIAL(*) 5000 UNITS/ML VIAL (FIVE THOUSAND) SUBCUT SCH ×3 (06:43→21:32)
[2017-04-27] MEDS: Fludrocortisone Acetate TAB* 0.1 MG PO SCH (08:41)
[2017-04-27] MEDS: Citalopram TAB* 10 MG PO SCH (08:41)
[2017-04-27] MEDS: Hydrocortisone TAB* 10 MG PO SCH ×2 (08:41→18:31)
[2017-04-27] MEDS: Insulin LISPRO* 1 UNITS UNIT SUBCUT SCH ×7 (08:42→21:31)
[2017-04-27] MEDS: Potassium & Sodium Phos 250MG* = 1 PACKET PO SCH ×3 (08:42→21:32)
[2017-04-27] MEDS: Nystatin TOP POWDER* 15 GM BTL TOPICAL SCH ×2 (08:42→21:32)
[2017-04-27] MEDS: Insulin GLARGINE(*) 1 UNITS UNIT SUBCUT SCH (21:31)
[2017-04-28] MEDS: Heparin VIAL(*) 5000 UNITS/ML VIAL (FIVE THOUSAND) SUBCUT SCH ×2 (06:28→14:34)
[2017-04-28] MEDS: Levothyroxine TAB* 88 MCG TAB PO SCH (06:28)
[2017-04-28] MEDS: Insulin LISPRO* 1 UNITS UNIT SUBCUT SCH ×5 (07:23→22:39)
[2017-04-28] MEDS: Hydrocortisone TAB* 10 MG PO SCH ×2 (09:07→18:24)
[2017-04-28] MEDS: Fludrocortisone Acetate TAB* 0.1 MG PO SCH (09:07)
[2017-04-28] MEDS: Nystatin TOP POWDER* 15 GM BTL TOPICAL SCH (09:07)
[2017-04-28] MEDS: Citalopram TAB* 10 MG PO SCH (09:07)
[2017-04-28] MEDS: Potassium & Sodium Phos 250MG* = 1 PACKET PO SCH ×4 (09:08→22:53)
[2017-04-28 12:15] LABS: Hematocrit 33 % (35-47); Mean Corpuscular HGB Conc 34 g/dl (31-36); Mean Corpuscular Hemoglobin 31 pg (27-31); Mean Corpuscular Volume 91 fL (80-97); Mean Platelet Volume 9 um3 (7.4-10.4); Red Blood Count 3.55 10^6/ul (4.0-5.4); Red Cell Distribution Width 14 % (10.5-15); White Blood Count 7.6 10^3/ul (3.5-10.8)
[2017-04-28 12:34] LABS: BUN/Creatinine Ratio 22.1 (8-20); Calcium 8.7 mg/dL (8.6-10.3); EGFR Non-African American 73.9 (>60); Magnesium 1.7 mg/dL (1.9-2.7); Potassium 4.1 mmol/L (3.5-5.0)
[2017-04-28 12:49] LABS: TSH (Thyroid Stimulating Horm) 21.79 mcIU/mL (0.34-5.60)
[2017-04-28] MEDS: Insulin GLARGINE(*) 1 UNITS UNIT SUBCUT SCH (22:47)
[2017-04-29] MEDS: Insulin LISPRO* 1 UNITS UNIT SUBCUT SCH ×9 (01:57→21:23)
[2017-04-29] MEDS: Heparin VIAL(*) 5000 UNITS/ML VIAL (FIVE THOUSAND) SUBCUT SCH ×4 (02:00→21:23)
[2017-04-29] MEDS: Nystatin TOP POWDER* 15 GM BTL TOPICAL SCH ×3 (02:00→21:24)
[2017-04-29] MEDS: Levothyroxine TAB* 88 MCG TAB PO SCH (07:25)
[2017-04-29 07:35] LABS: Hematocrit 31 % (35-47); Hemoglobin 10.6 g/dl (12.0-16.0); Mean Corpuscular HGB Conc 34 g/dl (31-36); Mean Corpuscular Hemoglobin 31 pg (27-31); Mean Corpuscular Volume 91 fL (80-97); Mean Platelet Volume 8 um3 (7.4-10.4); Red Blood Count 3.45 10^6/ul (4.0-5.4); Red Cell Distribution Width 13 % (10.5-15); White Blood Count 5.2 10^3/ul (3.5-10.8)
[2017-04-29 07:47] LABS: BUN/Creatinine Ratio 19.7 (8-20); C Reactive Protein 17.32 mg/L (< 5.00); Calcium 8.4 mg/dL (8.6-10.3); EGFR African American 104.4 (>60); EGFR Non-African American 81.2 (>60); Phosphorus 2.1 mg/dL (2.5-5.0)
[2017-04-29] MEDS ORDERED: Insulin LISPRO* 1 UNITS UNIT SUBCUT SCH (08:00)
[2017-04-29] MEDS: Hydrocortisone TAB* 10 MG PO SCH ×2 (09:10→17:57)
[2017-04-29] MEDS: Fludrocortisone Acetate TAB* 0.1 MG PO SCH (09:10)
[2017-04-29] MEDS: Citalopram TAB* 10 MG PO SCH (09:10)
[2017-04-29] MEDS: Potassium & Sodium Phos 250MG* = 1 PACKET PO SCH ×4 (10:15→21:18)
--- NOTE | 2017-04-29 11:21 | PN ---
Subjective - Subjective Reason for Note: Progress Note History: I have obtained a history from the patient, Dr. Gonzales's admitting history and physical and from Dr. Arie Calderon's hand written notes. According to the patient, she had a fall at home while walking around her kitchen island. She denies hitting her head. She states her sacral area hurt and hence she came to the ED. She is feeling improved today, but continues to have problems with details (insulin pump settings, the exact sequence of her medical history). T1D: Onset 29 years. She states she has good control usually - A1cs between 6 - 7%. She has occasional hypoglycemic episodes. She as used an insulin pump for 12 years or so. She doesn't know her basal rate settings, the name of the insulin she uses, her insulin: Carb ratio (just guesses) and can't describe how she calculates correction boluses. Complications: Microvascular: Denies retinopathy, nephropathy and peripheral neuropathy Macrovascular: Denies CAD, PVD or cerebrovascular disease. Primary hypothyroidism - she has been taking levothyroxine for many years. Adrenal insufficiency - doesn't remember when this was diagnosed. Tobacco - quit when She doesn't remember her medications. Phone call to [address]: Lexapro 10 mg qdaily Levothyroxine 88 mcg qdaily Fludrocortisone 0.1 mg - 1/2 tab per day Hydrocortisone 10 mg qdaily. (previously got humalog insulin). 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 Primary adrenal insufficiency (Chronic) E27.1 Primary hypothyroidism (Chronic) E03.9 Current Medications: Current Medications Acetaminophen (Tylenol Tab*) 650 mg PO Q4H PRN PRN Reason: FEVER/PAIN Al Hydrox/Mg Hydrox/Simethicone (Maalox Plus*) 30 ml PO Q6H PRN PRN Reason: INDIGESTION Citalopram Hydrobromide (Celexa Tab*) 10 mg PO DAILY DAVID Last Admin: 04/29/17 09:10 Dose: 10 mg Dextrose (D50w Syringe 50 Ml*) 12.5 gm IV PUSH .FOR FS < 60 - SS PRN PRN Reason: FS < 60 Docusate Sodium (Colace Cap*) 100 mg PO BID PRN PRN Reason: CONSTIPATION Fludrocortisone Acetate (Florinef Tab*) 0.05 mg PO DAILY [facility] Last Admin: 04/29/17 09:10 Dose: 0.05 mg Haloperidol Lactate (Haldol Inj Iv/Im*) 2.5 mg IV SLOW PU Q6H PRN PRN Reason: AGITATION Last Admin: 04/27/17 23:21 Dose: 2.5 mg Heparin Sodium (Porcine) (Heparin Vial(*)) 5,000 units SUBCUT Q8HR [facility] Last Admin: 04/29/17 07:25 Dose: 5,000 units Hydrocortisone (Cortef Tab*) 20 mg PO QAM [facility] Last Admin: 04/29/17 09:10 Dose: 20 mg Hydrocortisone (Cortef Tab*) 10 mg PO QPM [facility] Last Admin: 04/28/17 18:24 Dose: 10 mg Insulin Glargine (Lantus(*)) 12 units SUBCUT BEDTIME [facility] Last Admin: 04/28/17 22:47 Dose: 12 units Insulin Human Lispro (Humalog*) 1 units SUBCUT AC [facility] PRN Reason: Protocol Last Admin: 04/29/17 09:12 Dose: 2 units Insulin Human Lispro (Humalog*) 0 units SUBCUT ACHS [facility] PRN Reason: Protocol Last Admin: 04/29/17 09:12 Dose: 1 units Insulin Human Lispro (Humalog*) 0 units SUBCUT .CONTINUOUS [facility] Levothyroxine Sodium (Synthroid Tab*) 88 mcg PO DAILY@0600 [facility] Last Admin: 04/29/17 07:25 Dose: 88 mcg Nystatin (Nystatin Top Powder*) 1 applic TOPICAL BID [facility] Last Admin: 04/29/17 09:13 Dose: Not Given Ondansetron HCl (Zofran Inj*) 4 mg IV Q4H PRN PRN Reason: NAUSEA/VOMITING Potassium Phos/Sodium Phos (Neutra Phos 250 Mg Mark*) 500 mg PO QID [facility] Last Admin: 04/29/17 10:15 Dose: 500 mg Senna (Senokot Tab*) 1 tab PO BID PRN PRN Reason: CONSTIPATION Home Medications: Home Medications Medication Instructions Recorded Confirmed Type Escitalopram (NF) [Lexapro 10 mg 10 mg PO DAILY 04/25/17 04/25/17 History (NF)] Fludrocortisone Acetate TAB* 0.05 mg PO DAILY 04/25/17 04/25/17 History [Florinef TAB*] Hydrocortisone TAB* [Cortef TAB*] 10 mg PO DAILY 04/25/17 04/25/17 History Hydrocortisone TAB* [Cortef TAB*] 20 mg PO DAILY 04/25/17 04/25/17 History Insulin LISPRO* [HumaLOG*] 0 units SUBCUT SEE INSTRUCTIONS 04/25/17 04/25/17 History Levothyroxine TAB* [Synthroid TAB*] 88 mcg PO DAILY 04/25/17 04/25/17 History Allergies: Allergies Allergy/AdvReac Type Severity Reaction Status Date / Time Atorvastatin [From Lipitor] Allergy Intermediate GI Upset Verified 07/15/16 08: 45 Amoxicillin [From Augmentin] Allergy Nausea Verified 07/15/16 08:45 Clavulanic Acid Allergy Nausea Verified 07/15/16 08:45 [From Augmentin] Codeine Allergy Nausea Verified 07/15/16 08:45 Levofloxacin [From Levaquin] Allergy GI Upset Verified 07/15/16 08:45 Rosuvastatin [From Crestor] Allergy SORE THROAT Verified 07/15/16 08:45 Simvastatin [From Zocor] Allergy MYALGIA Verified 07/15/16 08:45 Tramadol Allergy N/V Verified 07/15/16 08:45 Venlafaxine [From Effexor] Allergy GI Upset Verified 07/15/16 08:45 Objective - Vital Signs Vital Signs: Vital Signs 04/28/17 04/28/17 04/28/17 11:36 12:00 12:05 Temperature 98.4 F Pulse Rate 61 Respiratory 18 16 Rate Blood Pressure 99/76 (mmHg) O2 Sat by Pulse 99 Oximetry 04/28/17 04/28/17 04/28/17 12:53 13:00 13:01 Temperature Pulse Rate 65 69 Respiratory 16 17 15 Rate Blood Pressure 104/58 (mmHg) O2 Sat by Pulse 99 93 Oximetry 04/28/17 04/28/17 04/28/17 14:00 15:00 15:01 Temperature Pulse Rate 59 63 Respiratory 20 14 14 Rate Blood Pressure 130/68 106/63 (mmHg) O2 Sat by Pulse 96 100 Oximetry 04/28/17 04/28/17 04/28/17 17:00 20:00 20:08 Temperature 98.3 F 98.0 F Pulse Rate 69 66 Respiratory 16 16 18 Rate Blood Pressure 125/45 107/43 (mmHg) O2 Sat by Pulse 100 96 Oximetry 04/28/17 04/29/17 04/29/17 23:40 03:46 08:09 Temperature 97.2 F 97.7 F 97.8 F Pulse Rate 62 56 63 Respiratory 15 14 18 Rate Blood Pressure 117/48 117/48 107/58 (mmHg) O2 Sat by Pulse 96 97 99 Oximetry - Intake and Output Intake and Output: Intake & Output 04/26/17 04/27/17 04/28/17 04/29/17 11:59 11:59 11:59 11:59 Intake Total 4851 1933 1140 930 Output Total 2350 1750 2250 350 Balance 2501 183 -1110 580 Weight 157 lb 13.616 oz 162 lb 11.218 oz 167 lb 1.766 oz Intake: IV Fluids 959 918 Mag 459 NS (0.9%) 959 459 IVPB 1942 100 Mag 100 NS (0.9%) 1942 Oral 5452 093 3864 930 Output: Urine 1050 2250 350 Calderon 2350 700 Other: Estimated Void Medium Date of Last Bowel 04/28/17 Movement # Bowel Movements 0 Estimated Stool Amount Small # Voids 1 ADLs: Meal Record Start: 04/25/17 03: 24 Freq: 09,13,18 Status: Complete Protocol: Document 04/25/17 09:00 [id number] (Rec: 04/25/17 09:30 [id number] ICU-M10) Document 04/25/17 13:00 [id number] (Rec: 04/25/17 14:41 [id number] ICU-C10) Document 04/25/17 18:00 [id number] (Rec: 04/25/17 18:36 [id number] ICU-M10) Document 04/26/17 09:00 [id number] (Rec: 04/26/17 09:57 [id number] ICU-C16) Document 04/26/17 13:00 [id number] (Rec: 04/26/17 14:17 ICU-C16) Document 04/26/17 18:00 [id number] (Rec: 04/26/17 19:43 [id number] ICU-C16) Document 04/27/17 09:00 [id number] (Rec: 04/27/17 11:37 [id number] ICU-C16) Document 04/27/17 13:34 [id number] (Rec: 04/27/17 13:35 [id number] ICU-C16) Document 04/27/17 18:00 [id number] (Rec: 04/27/17 18:19 [id number] ICU-C16) Document 04/28/17 09:00 [id number] (Rec: 04/28/17 10:56 [id number] ICU-C16) Document 04/28/17 13:00 [id number] (Rec: 04/28/17 14:25 [id number] ICU-C16) ADLs: Meal Record Start: 04/28/17 15: 03 Freq: DAILY@0900,1400,1800 Status: Active Protocol: Created 04/28/17 15:03 [id number] (Rec: 04/28/17 15:03 [id number] ICU-C16) Document 04/28/17 18:00 [id number] (Rec: 04/28/17 22:58 [id number] MED-C09) Document 04/29/17 09:00 [id number] (Rec: 04/29/17 09:50 [id number] MED-M01) Intake and Output Start: 04/25/17 03: 24 Freq: 06,14,22 Status: Complete Protocol: Document 04/25/17 11:56 [id number] (Rec: 04/25/17 11:56 [id number] ICU-C16) Document 04/25/17 14:00 [id number] (Rec: 04/25/17 15:05 [id number] ICU-C16) Document 04/25/17 22:00 [id number] (Rec: 04/26/17 00:33 [id number] ICU-C16) Document 04/26/17 06:00 [id number] (Rec: 04/26/17 06:05 [id number] ICU-M10) Document 04/26/17 14:00 (Rec: 04/26/17 14:16 [id number] ICU-C16) Document 04/26/17 22:00 [id number] (Rec: 04/26/17 23:00 [id number] ICU-C16) Document 04/27/17 06:00 [id number] (Rec: 04/27/17 06:29 [id number] ICU-C16) Document 04/27/17 14:00 [id number] (Rec: 04/27/17 14:45 [id number] ICU-C20) Document 04/27/17 22:00 [id number] (Rec: 04/27/17 22:08 [id number] ICU-C16) Document 04/28/17 06:00 [id number] (Rec: 04/28/17 06:09 [id number] ICU-C16) Document 04/28/17 08:30 [id number] (Rec: 04/28/17 08:30 [id number] ICU-C20) Document 04/28/17 14:06 [id number] (Rec: 04/28/17 14:06 [id number] ICU-C10) Intake and Output Start: 04/28/17 15: 03 Freq: DAILY@0600,1400,2200 Status: Active Protocol: Created 04/28/17 15:03 [id number] (Rec: 04/28/17 15:03 [id number] ICU-C16) Document 04/28/17 22:00 [id number] (Rec: 04/28/17 22:59 [id number] MED-C09) Document 04/29/17 00:18 [id number] (Rec: 04/29/17 00:18 [id number] MEDL-C01) - Physical Exam General: No Cyanosis, No Anemia, No Jaundice, No Clubbing Skin: Normal: Rash, Lesions Lungs and Chest: Yes: Chest Expansion Full, Chest Expansion Symetrica, Percussion Note Resonant, Vessicular Breath Sounds. No: Crackles, Wheezes Heart Rate and Rhythm: Regular JVP: Not Elevated Additional Cardiovascular: Yes: Normal Heart Sounds. No: Heart Murmur, Pedal Edema Abdominal Exam: Yes: Soft, Bowel Sounds Present. No: Distention, Abdominal Mass , Hepatomegaly, Abdominal Tenderness Results - Results Lab Results: Laboratory Results - last 24 hr 04/28/17 04/28/17 04/28/17 11:28 11:40 11:40 WBC 7.6 RBC 3.55 L Hgb 11.0 L Hct 33 L MCV 91 MCH 31 MCHC 34 RDW 14 Plt Count 224 MPV 9 Neut % (Auto) 78.4 Lymph % (Auto) 12.7 L [place] % (Auto) 7.8 Eos % (Auto) 0.9 Baso % (Auto) 0.2 Absolute Neuts (auto) 6.0 Absolute Lymphs (auto) 1.0 Absolute Monos (auto) 0.6 Absolute Eos (auto) 0.1 Absolute Basos (auto) 0 Absolute Nucleated RBC 0 Nucleated RBC % 0.1 Sodium 129 L Potassium 4.1 Chloride 100 L Carbon Dioxide 22 Anion Gap 7 BUN 17 Creatinine 0.77 Est GFR ( Amer) 95.0 Est GFR (Non-Af Amer) 73.9 BUN/Creatinine Ratio 22.1 H Glucose 272 H POC Glucose (mg/dL) 296 H Calcium 8.7 Phosphorus 1.0 L Magnesium 1.7 L C-Reactive Protein TSH 21.79 H 04/28/17 04/28/17 04/29/17 16:55 22:17 00:11 WBC RBC Hgb Hct MCV MCH MCHC RDW Plt Count MPV Neut % (Auto) Lymph % (Auto) [place] % (Auto) Eos % (Auto) Baso % (Auto) Absolute Neuts (auto) Absolute Lymphs (auto) Absolute Monos (auto) Absolute Eos (auto) Absolute Basos (auto) Absolute Nucleated RBC Nucleated RBC % Sodium Potassium Chloride Carbon Dioxide Anion Gap BUN Creatinine Est GFR ( Amer) Est GFR (Non-Af Amer) BUN/Creatinine Ratio Glucose 392 H POC Glucose (mg/dL) 221 H 437 H* Calcium Phosphorus Magnesium C-Reactive Protein TSH 04/29/17 04/29/17 04/29/17 07:17 07:17 07:38 WBC 5.2 RBC 3.45 L Hgb 10.6 L Hct 31 L MCV 91 MCH 31 MCHC 34 RDW 13 Plt Count 205 MPV 8 Neut % (Auto) Lymph % (Auto) [place] % (Auto) Eos % (Auto) Baso % (Auto) Absolute Neuts (auto) Absolute Lymphs (auto) Absolute Monos (auto) Absolute Eos (auto) Absolute Basos (auto) Absolute Nucleated RBC Nucleated RBC % Sodium 133 Potassium 4.0 Chloride 101 Carbon Dioxide 26 Anion Gap 6 BUN 14 Creatinine 0.71 Est GFR ( Amer) 104.4 Est GFR (Non-Af Amer) 81.2 BUN/Creatinine Ratio 19.7 Glucose 170 H POC Glucose (mg/dL) 165 H Calcium 8.4 L Phosphorus 2.1 L Magnesium C-Reactive Protein 17.32 H TSH At presentation: REZA (acute kidney injury) (Acute) Abdominal pain (Acute) CKD (chronic kidney disease) stage 5, GFR less than 15 ml/min (Acute) Loss of hearing (Acute) SOB (shortness of breath) (Acute) LUISITO (obstructive sleep apnea) (Chronic) Restrictive lung disease due to kyphoscoliosis (Chronic) Scoliosis/kyphoscoliosis (Chronic) Sleep apnea assessment (Active) Weakness (Acute) DVT prophylaxis (Chronic) HTN (hypertension) (Chronic) Hypothyroid (Chronic) Rheumatoid arthritis (Chronic) Radiology Results: Patient Name: SALONI STRONG Medical Record#: [id number] Ordering Physician: Luciano Pickett MD Acct.#: [id number] : 1945 Age: 72 Sex: F Location: [facility] Exam Date: 04/25/172016 ADM Status: ADM IN Order Information: CHEST AP PORTABLE Accession Number: [id number] CPT: 35775 INDICATION: Altered mental status COMPARISON: Most recent comparison chest x-rays dated July 15, 2016 TECHNIQUE: Single AP portable view of the chest was obtained. FINDINGS: Image quality is compromised due to the relative inferiority of a portable chest x-ray. The heart and mediastinum exhibit normal size and contour. The lungs are grossly clear. There is no evidence of a large pleural effusion. Visualized bones are normal for the patient's age. IMPRESSION: No radiographic evidence for acute cardiopulmonary abnormality on this portable chest x-ray. <Electronically signed by Manpreet Mayers MD in OV> 04/25/17 075 Dictated By: Manpreet Mayers MD Dictated Date/Time: 04/25/17752 Transcribed Date/Time: 04/25/17752 Copy to: CC:Sheri Calderon MD; Luciano Pickett MD; Juany Gonzales DO Imaging - [facility] Imaging - [facility] Imaging - [facility] [address] [place] [id number] [place] [id number] [place] [phone] ph ([phone]) ph ([phone]) ph ([phone]) of Assessment - Problem List Assessment: Patient Problems Counseling for insulin pump (Acute) Encephalopathy, metabolic (Acute) Fall (Acute) Hypomagnesemia (Acute) Hyponatremia (Acute) Hypophosphatemia (Acute) Type 1 diabetes mellitus (Acute) Essential hypertension (Chronic) Polyglandular autoimmune syndrome, type 2 (Chronic) Primary adrenal insufficiency (Chronic) Primary hypothyroidism (Chronic) Plan: Encephalopathy, metabolic (Acute) This is resolving. She may have an underlying mild dementia. This may make self management of her diabetes complicated Fall (Acute) This story is not present in Dr. Gonzales's admitting H and P - either it is a confabulation, or she didn't remember it at the time of admission Hypomagnesemia (Acute) This is resolving Hyponatremia (Acute) I am concerned this may have been caused by her escitalopram (SIADH). She did have a mild acidosis at presentation, but no hyperkalemia - however, her cortisol level was low. Acute adrenal insufficiency due to non-compliance is another potential cause of her hyponatremia Hypophosphatemia (Acute) Resolving Type 1 diabetes mellitus (Acute) She usually uses an insulin pump, but doesn't know the basal rates. She is unable to give a clear history of how she calculates her boluses - this may be due to her encephalopathy - which is resolving - or to mild dementia. I will bring in some set and resevoirs so she can restart the pump - she would prefer to do this after discharge, but this raises the problem that she may not cope with this at home. I note she has remained fairly hyperglycemic - likely because of the large doses of steroids she received at admission Counseling for insulin pump (Acute) I discussed this with her. She has little memory of any of her medications and cannot give a good account of how she adjusts he boluses Essential hypertension (Chronic) stable Polyglandular autoimmune syndrome, type 2 (Chronic) She may have other organ- specific autoimmune disease - the one that concerns me is B12 deficiency as she has a poor memory Primary adrenal insufficiency (Chronic) she is on a very small dose of hydrocortisone at home - 10 mg qdaily. The usual replacement regimen is qam 10 mg, qnoon 5 mg, q pm 2.5 mg. Once per day dosing is insufficient because of the T1/2 of cortisol. I recommend she either takes hydrocortisone 10 mg bid or dexamethasone 0.5 mg qdaily or prednisone 5 mg qdaily. She should continue to take the fludrocortisone Primary hypothyroidism (Chronic) She clearly has not been taking this correctly - her TSH is improving. I tried to discuss the above with the patient, but she doesn't have good insight.
[2017-04-29] MEDS: Insulin GLARGINE(*) 1 UNITS UNIT SUBCUT SCH (21:19)
[2017-04-30] MEDS: Levothyroxine TAB* 88 MCG TAB PO SCH (06:08)
[2017-04-30] MEDS: Heparin VIAL(*) 5000 UNITS/ML VIAL (FIVE THOUSAND) SUBCUT SCH ×3 (06:08→22:29)
[2017-04-30] MEDS: Insulin LISPRO* 1 UNITS UNIT SUBCUT SCH ×2 (07:26→07:27)
[2017-04-30] MEDS: Fludrocortisone Acetate TAB* 0.1 MG PO SCH (07:31)
[2017-04-30] MEDS: Citalopram TAB* 10 MG PO SCH (07:31)
[2017-04-30] MEDS: Nystatin TOP POWDER* 15 GM BTL TOPICAL SCH ×2 (07:32→22:32)
[2017-04-30] MEDS: Hydrocortisone TAB* 10 MG PO SCH ×2 (07:32→17:22)
[2017-04-30] MEDS: Potassium & Sodium Phos 250MG* = 1 PACKET PO SCH ×4 (07:33→22:29)
[2017-04-30 09:34] LABS: BUN/Creatinine Ratio 19.2 (8-20); Calcium 8.5 mg/dL (8.6-10.3); EGFR African American 101.1 (>60); EGFR Non-African American 78.6 (>60); Magnesium 1.5 mg/dL (1.9-2.7); Potassium 3.7 mmol/L (3.5-5.0)
[2017-04-30] MEDS: Magnesium Oxide TAB* 400 MG PO SCH ×2 (12:39→22:29)
[2017-04-30] MEDS ORDERED: Insulin LISPRO* 1 UNITS UNIT SUBCUT SCH (22:07)
[2017-05-01] MEDS: Insulin LISPRO* 1 UNITS UNIT SUBCUT SCH ×8 (02:18→22:30)
[2017-05-01 06:11] LABS: Hematocrit 31 % (35-47); Hemoglobin 10.6 g/dl (12.0-16.0); Mean Corpuscular HGB Conc 34 g/dl (31-36); Mean Corpuscular Hemoglobin 31 pg (27-31); Mean Corpuscular Volume 91 fL (80-97); Mean Platelet Volume 8 um3 (7.4-10.4); Red Blood Count 3.43 10^6/ul (4.0-5.4); Red Cell Distribution Width 14 % (10.5-15); White Blood Count 6.6 10^3/ul (3.5-10.8)
[2017-05-01] MEDS: Heparin VIAL(*) 5000 UNITS/ML VIAL (FIVE THOUSAND) SUBCUT SCH ×3 (06:29→21:10)
[2017-05-01] MEDS: Levothyroxine TAB* 88 MCG TAB PO SCH (06:30)
[2017-05-01 06:33] LABS: Albumin 3.1 g/dL (3.2-5.2); BUN/Creatinine Ratio 18.8 (8-20); C Reactive Protein 10.33 mg/L (< 5.00); Calcium 8.5 mg/dL (8.6-10.3); EGFR African American 107.9 (>60); EGFR Non-African American 83.9 (>60); Globulin 2.1 g/dL (2-4); Magnesium 1.6 mg/dL (1.9-2.7); Phosphorus 2.6 mg/dL (2.5-5.0); Potassium 3.8 mmol/L (3.5-5.0); Total Bilirubin 0.4 mg/dL (0.2-1.0); Total Protein 5.2 g/dL (6.4-8.9)
[2017-05-01] MEDS ORDERED: Influenza VAC *QUAD* 2017-18* 0.5 ML SYRINGE IM ONE (09:00)
[2017-05-01] MEDS: Magnesium Oxide TAB* 400 MG PO SCH ×3 (09:20→21:10)
[2017-05-01] MEDS: Hydrocortisone TAB* 10 MG PO SCH ×2 (09:20→17:02)
[2017-05-01] MEDS: Citalopram TAB* 10 MG PO SCH (09:20)
[2017-05-01] MEDS: Potassium & Sodium Phos 250MG* = 1 PACKET PO SCH ×4 (09:20→21:12)
[2017-05-01] MEDS: Nystatin TOP POWDER* 15 GM BTL TOPICAL SCH ×2 (09:21→21:06)
[2017-05-01] MEDS: Fludrocortisone Acetate TAB* 0.1 MG PO SCH (09:21)
[2017-05-01 09:27] LABS: Free T3 2.4 pg/mL (2.5-3.9)
[2017-05-01 09:29] LABS: Free T4 0.64 ng/dL (0.61-1.12)
--- NOTE | 2017-05-01 15:51 | CONSULT ---
Subjective Reason for Visit: Diabetes education - evaluation of pump use Admission Date: 04/25/17 History Of Present Illness: 72 year old woman with aproximately 30 year history of Type 1 diabetes that she has been controlling with an insulin pump (Medtronix 523). Her admission history and physical note was reviewed as were the notes from Dr. Martinez and Dr Calderon. The objective is to evaluate her ability to safely continue using her pump following discharge. She reports that her HgbA1C levels are generally around 6-7% but thinks that her last one may have been a little above 8%. She is not a good historian regarding what happened on the day that she was brought to the hospital. Her is in rehabilitation at the [facility] in [place] following a below the knee amputation d/t complications of his type 2 diabetes. She has not been taking any of her medications regularly because she has been visiting him and handling other family issues. She is able to articulate her insulin:carbohydrate ratio but is not clear about a correctional dose or her basal insulin settings. She is able to discuss carbohydrate counting and discuss the carbohydrate contents of her usual foods. She feels comfortable with her pump but gets frustrated about her own medication management in general. She has had some erratic episodes of pump use in the last 24 hours. She disconnected her pump for a short period and then reconnected it and gave herself a bolus that resulted in an episode of hypoglycemia (POC glucose = 52 mg/dl). Patient History Surgical History: Yes Surgery Procedure, Year, and Place: . tubal Marital Status: - currently at [facility] Infectious Preferred/Primary Language: Egyptian Objective Allergies Allergy/AdvReac Type Severity Reaction Status Date / Time Atorvastatin [From Lipitor] Allergy Intermediate GI Upset Verified 07/15/16 08: 45 Amoxicillin [From Augmentin] Allergy Nausea Verified 07/15/16 08:45 Clavulanic Acid Allergy Nausea Verified 07/15/16 08:45 [From Augmentin] Codeine Allergy Nausea Verified 07/15/16 08:45 Levofloxacin [From Levaquin] Allergy GI Upset Verified 07/15/16 08:45 Rosuvastatin [From Crestor] Allergy SORE THROAT Verified 07/15/16 08:45 Simvastatin [From Zocor] Allergy MYALGIA Verified 07/15/16 08:45 Tramadol Allergy N/V Verified 07/15/16 08:45 Venlafaxine [From Effexor] Allergy GI Upset Verified 07/15/16 08:45 Home Medications Medication Instructions Recorded Confirmed Type Escitalopram (NF) [Lexapro 10 mg 10 mg PO DAILY 04/25/17 04/25/17 History (NF)] Fludrocortisone Acetate TAB* 0.05 mg PO DAILY 04/25/17 04/25/17 History [Florinef TAB*] Hydrocortisone TAB* [Cortef TAB*] 10 mg PO DAILY 04/25/17 04/25/17 History Hydrocortisone TAB* [Cortef TAB*] 20 mg PO DAILY 04/25/17 04/25/17 History Insulin LISPRO* [HumaLOG*] 0 units SUBCUT SEE INSTRUCTIONS 04/25/17 04/25/17 History Levothyroxine TAB* [Synthroid TAB*] 88 mcg PO DAILY 04/25/17 04/25/17 History Hospital Medications: Current Medications Acetaminophen (Tylenol Tab*) 650 mg PO Q4H PRN PRN Reason: FEVER/PAIN Al Hydrox/Mg Hydrox/Simethicone (Maalox Plus*) 30 ml PO Q6H PRN PRN Reason: INDIGESTION Citalopram Hydrobromide (Celexa Tab*) 10 mg PO DAILY [facility] Last Admin: 05/01/17 09:20 Dose: 10 mg Dextrose (D50w Syringe 50 Ml*) 12.5 gm IV PUSH .FOR FS < 60 - SS PRN PRN Reason: FS < 60 Docusate Sodium (Colace Cap*) 100 mg PO BID PRN PRN Reason: CONSTIPATION Fludrocortisone Acetate (Florinef Tab*) 0.05 mg PO DAILY [facility] Last Admin: 05/01/17 09:21 Dose: 0.05 mg Haloperidol Lactate (Haldol Inj Iv/Im*) 2.5 mg IV SLOW PU Q6H PRN PRN Reason: AGITATION Last Admin: 04/27/17 23:21 Dose: 2.5 mg Heparin Sodium (Porcine) (Heparin Vial(*)) 5,000 units SUBCUT Q8HR [facility] Last Admin: 05/01/17 13:17 Dose: 5,000 units Hydrocortisone (Cortef Tab*) 20 mg PO QAM [facility] Last Admin: 05/01/17 09:20 Dose: 20 mg Hydrocortisone (Cortef Tab*) 10 mg PO QPM [facility] Last Admin: 04/30/17 17:22 Dose: 10 mg Insulin Human Lispro (Humalog*) 0 units SUBCUT .CONTINUOUS [facility] Levothyroxine Sodium (Synthroid Tab*) 88 mcg PO DAILY@0600 [facility] Last Admin: 05/01/17 06:30 Dose: 88 mcg Magnesium Oxide (Magox 400 Tab*) 400 mg PO TID [facility] Last Admin: 05/01/17 13:17 Dose: 400 mg Nystatin (Nystatin Top Powder*) 1 applic TOPICAL BID [facility] Last Admin: 05/01/17 09:21 Dose: Not Given Ondansetron HCl (Zofran Inj*) 4 mg IV Q4H PRN PRN Reason: NAUSEA/VOMITING Potassium Phos/Sodium Phos (Neutra Phos 250 Mg Mark*) 500 mg PO QID [facility] Last Admin: 05/01/17 13:17 Dose: 500 mg Senna (Senokot Tab*) 1 tab PO BID PRN PRN Reason: CONSTIPATION Lab Data: Sodium 132 mmol/L (133-145) L 05/01/17 06:01 Potassium 3.8 mmol/L (3.5-5.0) 05/01/17 06:01 BUN 13 mg/dL (6-24) 05/01/17 06:01 Creatinine 0.69 mg/dL (0.51-0.95) 05/01/17 06:01 Calcium 8.5 mg/dL (8.6-10.3) L 05/01/17 06:01 Magnesium 1.6 mg/dL (1.9-2.7) L 05/01/17 06:01 AST 30 U/L (13-39) 05/01/17 06:01 ALT 19 U/L (7-52) 05/01/17 06:01 Glucose Results: Glucose Results Blood Glucose Monitoring POC Start: 04/25/17 08: 29 Freq: 0200,0600,1000,1400,1800,2200 Status: Complete Protocol: Document 04/29/17 16:30 [id number] (Rec: 04/29/17 18:36 [id number] [facility]) Blood Glucose Monitoring POC Glucose Obtained Yes Glucose Result Being Addressed/Treated ( 258 mg/dL) Blood Glucose Method POC Glucose (bedside) Document 04/29/17 21:00 [id number] (Rec: 04/30/17 05:27 [id number] MED-C02) Blood Glucose Monitoring POC Glucose Obtained Yes Document 04/30/17 07:30 [id number] (Rec: 04/30/17 10:44 [id number] MED-C04) Blood Glucose Monitoring POC Glucose Obtained Yes Glucose Result Being Addressed/Treated ( 162 mg/dL) Blood Glucose Method POC Glucose (bedside) Document 04/30/17 11:30 [id number] (Rec: 04/30/17 12:15 [id number] [facility]-RDC[facility]) Blood Glucose Monitoring POC Glucose Obtained Yes Glucose Result Being Addressed/Treated ( 118 mg/dL) Blood Glucose Method POC Glucose (bedside) Document 04/30/17 16:30 [id number] (Rec: 04/30/17 17:24 [id number] [facility]) Blood Glucose Monitoring POC Glucose Obtained Yes Glucose Result Being Addressed/Treated ( 64 mg/dL) Blood Glucose Method POC Glucose (bedside) Additional Actions Taken PO Snack Blood Glucose Comments Dinner is here Document 04/30/17 21:00 [id number] (Rec: 04/30/17 23:58 [id number] MED-C04) Blood Glucose Monitoring POC Glucose Obtained Yes Glucose Result Being Addressed/Treated ( 52 mg/dL) Blood Glucose Method POC Glucose (bedside) Additional Actions Taken PO Snack Provider Notified Blood Glucose Monitoring POC Start: 04/30/17 22: 19 Freq: DAILY@0600,1000,1400,1800,2200 Status: Complete Protocol: Document 05/01/17 01:54 [id number] (Rec: 05/01/17 01:54 [id number] [facility]) Blood Glucose Monitoring POC Glucose Obtained Yes Glucose Result Being Addressed/Treated ( 244 mg/dL) Blood Glucose Method POC Glucose (bedside) Document 05/01/17 06:00 [id number] (Rec: 05/01/17 06:19 [id number] MED-M02) Blood Glucose Monitoring POC Glucose Obtained Yes Glucose Result Being Addressed/Treated ( 194 mg/dL) Blood Glucose Method POC Glucose (bedside) Blood Glucose Monitoring POC Start: 05/01/17 08: 44 Freq: ACHS Status: Active Protocol: Document 05/01/17 11:30 [id number] (Rec: 05/01/17 12:34 [id number] MED-C04) Blood Glucose Monitoring POC Glucose Obtained Yes Glucose Result Being Addressed/Treated ( 360 mg/dL) Blood Glucose Method POC Glucose (bedside) Additional Actions Taken Nurse Notified Vital Signs: Vital Signs 05/01/17 05/01/17 08:00 11:17 Temperature 98.5 F Pulse Rate 72 Respiratory 18 16 Rate Blood Pressure 110/45 (mmHg) O2 Sat by Pulse 99 Oximetry Plan Of Care Patient's Next Step: Patient will be discharged home with an emphasis on reinforcing her use of insulin correctly and avoiding hypoglycemic incidents. She has been using an insulin pump for over 12 years and feels comfortable with it. Changing her to insulin pens for basal/bolus dosing would likely be too confusing for her at this point. The fact that her had surgery and is currently in rehabilitation has likely contributed to a disruption of her routine and a problem with her medication use. She acknowledges that this is a big part of why she has been struggling with taking care of herself. At this time, the following recommendations for discharge were discussed with her: 1. Continue using insulin pump with current calculated basal rate 2. Provide her with a chart outlining her correctional dose of insulin as well as what her insulin:carbohydrate ration is (1:15) as a reminder of how to give herself a correct dose 3. Reinforce the dangers of hypoglycemia The endocrinology office at [place] was contacted ([facility] [phone]). She usually meets with INDIA Kumar for her appointments and usually has them at the [place] office. Odette Jaquez RD, CDE reviewed her record and felt that she was not using her pump accurately because she was not providing glucose numbers at her appointment. She will need Diabetes Self-Management Education following discharge. A record release was faxed to them so that a copy of her last office notes and pump settings could be faxed here for review prior to discharge. Referral To: DSME - and VNS for reinforcement on safe medication use
[2017-05-02] MEDS: Levothyroxine TAB* 88 MCG TAB PO SCH (05:29)
[2017-05-02] MEDS: Heparin VIAL(*) 5000 UNITS/ML VIAL (FIVE THOUSAND) SUBCUT SCH (05:30)
[2017-05-02 07:41] VITALS: BP 135/56
[2017-05-02] MEDS: Hydrocortisone TAB* 10 MG PO SCH (08:53)
[2017-05-02] MEDS: Magnesium Oxide TAB* 400 MG PO SCH (08:54)
[2017-05-02] MEDS: Citalopram TAB* 10 MG PO SCH (08:54)
[2017-05-02] MEDS: Potassium & Sodium Phos 250MG* = 1 PACKET PO SCH (08:54)
[2017-05-02] MEDS: Insulin LISPRO* 1 UNITS UNIT SUBCUT SCH (08:55)
[2017-05-02] MEDS: Fludrocortisone Acetate TAB* 0.1 MG PO SCH (08:55)
[2017-05-02] MEDS: Nystatin TOP POWDER* 15 GM BTL TOPICAL SCH (08:55)
--- NOTE | 2017-05-02 12:52 | DS ---
CC: Faisal Martinez MD; VNS * DISCHARGE SUMMARY: DATE OF ADMISSION: 04/24/17 DATE OF DISCHARGE: 05/02/17 DISCHARGE DIAGNOSES: 1. Change in mental status due to medication noncompliance. 2. Type 1 diabetes mellitus. 3. Hypothyroidism. 4. [place]'s disease. 5. Looney syndrome. 6. Hypophosphatemia. 7. Hypomagnesemia. 8. History of ALLERGIES to medications (ATORVASTATIN, AUGMENTIN, CODEINE, LEVOFLOXACIN, ROSUVASTATIN, SIMVASTATIN, TRAMADOL, EFFEXOR. 9. Volume depletion. 10. Anemia of chronic disease. HISTORY: Radha Wright is a 72-year-old woman admitted with altered mental status. Please see the dictated admission note for details of the present illness, past medical history, and family history, social and personal history, review of systems, and physical examination. LABORATORY DATA: CBC on admission; WBC 6.5, H and H 14.8/44, MCV 91, PLT 226, 000. CBC at the time of discharge; WBC 6.6, H and H 10.6/31, MCV 91, PLT 221, 000. INR 1.10, PTT 36.9. Chemistries at the time of admission; sodium 120, potassium 4.9, chloride 87, CO2 21, BUN and creatinine 33/1.79, glucose 147, magnesium 1.5. Rest of the comprehensive metabolic panel within normal limits. Lipase less than 10. CRP's throughout the hospitalization; 56.99, went up to 76.56 on 04/25/17, came down to 10.33 by 05/01/17. BNP was 13. TSH was 35.63 on 04/25/17, 21.79 on 04/28/17. Magnesium was 1.5 on 04/25/17, went down to 1.5 on 04/30/17, was up to 1.6 on 05/01/17. Lactic acid was 2.2 on 04/25/17. Osmolality was 262 on 04/25/17. Subsequent sodium came up to 134 on 04/30/17, was 132 on 05/01/17. Phosphorus was 1.2 on 04/27/17, 1 on 04/28/17, came up to 2.6 on 05/01/17. Jliyh-fd-lowh glucoses throughout her hospitalization ranged from 52 to greater than 444. On 24 hours prior to discharge, they were 194, 159 , 362, 155, 158, 85. Urinalysis on 04/25/17, yellow, clear, specific gravity 1.015, pH 5, dipstick positive for ketones, trace blood 1+, osmolality 453. Urine random creatinine 250.96, sodium 41. Blood cultures x2 were no growth. Nasal smear was MRSA negative. IMAGING: Chest x-ray on 04/25/17 showed no acute disease. CT scan of the brain on 04/25/[address] of the brain. EKG on 04/25/17 showed sinus tachycardia, intraventricular conduction delay, otherwise no significant change since 07/15/16. HOSPITAL COURSE: The patient was initially admitted, she was felt to have change in mental status due to medication noncompliance. She received IV fluids. Her sodium gradually came up. Her levothyroxine and hydrocortisone were replaced. Initially, she got stress doses of steroids, which put her blood sugars up and then her usual doses were reinstated and her blood sugars were more manageable. Her pump was taken out and then put back in. The case was discussed with Dr. Martinez for Endocrinology, Ronda Mao, diabetes nurse practitioner who called the [facility]. It was felt there was some concern about her using her pump, but there was also concern about her not using her pump and using a pen since she had never done this. She had not used a syringe for many years and so it was felt probably best to keep her pump in and have her cover her meals with carbohydrate counting, but not do corrections at this point. The patient's mental status was felt to be altered due to her not taking her medications, which might have related to her being in the senior care and once she stopped being compliant, it got worse. With regards to her medications, I called the [facility] pharmacy. She had been filling her medications consistently until March when she filled her medications 10 days late. Clearly she had not been taking her medications regularly during March. This was demonstrated by her low cortisol and her high TSH. Initially she had been in the ICU, had a Calderon catheter, this was subsequently taken out. Initially, her blood sugars were on a frequent basis and she was subsequently switched to a.c. and h.s. She did not appear to have infection. It is not clear why her CRP was elevated, but came down without antibiotics. Her medications were reinstated. At the time of discharge, she is going to be seen by VNS. She will also have case management her. Her pump is to be at 0.57 units per hour except between the hours of 12 and 3 to be at 1.2 units per hour which is her previous settings. She is to check her blood sugars four times a day. She decided to follow up with Dr. Martinez for diabetes and she will be seeing him in 2 days. She will see me next week. DIET: Her diet will be usual. ACTIVITY: As tolerated. INSTRUCTIONS: She is told not to go to work until her followup appointment with me and do not drive for now until her appointment. She is to have insulin via 1 unit and 1 unit for 15 g of carbohydrate. MEDICATIONS: Her other medications are; 1. Levothyroxine 88 mcg daily. 2. Hydrocortisone 20 mg a.m., 10 mg p.m. 3. Fludrocortisone 0.05 mg once a day, which is a half of 0.1 mg tablet. 4. Lexapro 5 mg once a day. There is some confusion about whether she had taken pravastatin. She says she has not been taking it and this was confirmed by the pharmacy. She has not had her prescriptions filled. This will be assessed in the future whether or not she should be on a statin. She has had reaction to other statins in the past and this will have to be determined. Mikki Mattson, wrapper caser, will be seeing her prior to her discharge. [id number]/[facility] #: [id number] GEOVANNA
== END 2017-05-02 10:50 | disposition home health service (06) | DRG 643 ==
LOC: ED 23:36 → ICU 04-25 02:35 → MED 04-28 15:48
PROVIDERS: ADMIT Pediatrics; ATTEND Internal Medicine Geriatric Medicine
DX: E27.2 Addisonian crisis (principal); G93.41 Metabolic encephalopathy; N17.9 Acute kidney failure, unspecified; E31.0 Autoimmune polyglandular failure; E83.39 Other disorders of phosphorus metabolism; E10.22 Type 1 diabetes mellitus with diabetic chronic kidney disease; M41.80 Other forms of scoliosis, site unspecified; E87.1 Hypo-osmolality and hyponatremia; I12.0 Hypertensive chronic kidney disease with stage 5 chronic kidney disease or end stage renal disease; N18.5 Chronic kidney disease, stage 5; E10.9 Type 1 diabetes mellitus without complications; E83.42 Hypomagnesemia; Z96.41 Presence of insulin pump (external) (internal); E27.1 Primary adrenocortical insufficiency; E03.9 Hypothyroidism, unspecified; D63.1 Anemia in chronic kidney disease; G47.33 Obstructive sleep apnea (adult) (pediatric); H91.90 Unspecified hearing loss, unspecified ear; E73.9 Lactose intolerance, unspecified; Z79.4 Long term (current) use of insulin; Z88.1 Allergy status to other antibiotic agents; Z88.5 Allergy status to narcotic agent; Z88.8 Allergy status to other drugs, medicaments and biological substances; Z91.14 Patient's other noncompliance with medication regimen
CPT/HCPCS: 36415; 70450; 71010; 80048; 80053; 81003; 81015; 82533; 82550; 82570; 82607; 82947; 83605; 83690; 83735; 83880; 83930; 83935; 84100; 84300; 84439; 84443; 84481; 84484; 85025; 85027; 85610; 85730; 86140; 87040; 87086; 87641; 90686; 93005; A9270-GY; J0744; J1630; J1644; J1720; J3370; J3475; J3490

== ENCOUNTER 2017-05-05 19:07 | Emergency (ER) | payer MEDICARE, OTHER ==
[2017-05-05] MEDS ORDERED: Insulin LISPRO* 1 UNITS UNIT SUBCUT ONE ×2 (20:45→20:55)
[2017-05-05 21:06] VITALS: BP 125/59
--- NOTE | 2017-05-05 22:01 | ED ---
HPI Diabetic - HPI Summary HPI Summary: Patient presents to the ED with request for medication. She has recently removed her insulin pump. She was seen in the hospital and admitted 2 weeks ago and states her sugars have been a bit off and not well controlled with her pump. States now she would like to return to her Humalog sliding scale to which she has been taking for over 40 years. She went to pharmacy and they would not dispense without a script. She states she is unable to eat without taking the medication. Checks her sugars 5 times per day and administers her own medications daily. Currently the weekend and is unable to see her PCP, Sheri Calderon MD. She states she is able to follow up and call the office on Sunday. She is feeling OK at this time and glucose on arrival is 212. - History Of Current Complaint Chief Complaint: EDPrescriptionNeeded Time Seen by Provider: 05/05/17 20:38 Hx Obtained From: Patient Last Known Well Date: currently Onset/Duration: Sudden Onset Timing: Constant Severity Initially: Mild Severity Currently: None Character: Alert Associated Signs & Symptoms: Negative Related History: Compliant, Controlled, DM I - Risk Factors Cardiac Risk Factors: Negative CVA Risk Factor: Negative Serious Bact. Infect. Risk Factors (Meningitis/Sepsis/UTI): Negative - Allergies/Home Medications Allergies/Adverse Reactions: Allergies Allergy/AdvReac Type Severity Reaction Status Date / Time Atorvastatin [From Lipitor] Allergy Intermediate GI Upset Verified 05/05/17 19: 21 Amoxicillin [From Augmentin] Allergy Nausea Verified 05/05/17 19:21 Clavulanic Acid Allergy Nausea Verified 05/05/17 19:21 [From Augmentin] Codeine Allergy Nausea Verified 05/05/17 19:21 Levofloxacin [From Levaquin] Allergy GI Upset Verified 05/05/17 19:21 Rosuvastatin [From Crestor] Allergy SORE THROAT Verified 05/05/17 19:21 Simvastatin [From Zocor] Allergy MYALGIA Verified 05/05/17 19:21 Tramadol Allergy N/V Verified 05/05/17 19:21 Venlafaxine [From Effexor] Allergy GI Upset Verified 05/05/17 19:21 PMH/Surg Hx/FS Hx/Imm Hx Previously Healthy: Yes Endocrine/Hematology History: Reports: Hx Diabetes, Hx Thyroid Disease - hypothyroid, Other Endocrine/Hematological Disorders - Mundelein's disease Denies: Hx Anemia, Hx Unexplained Bleeding Cardiovascular History: Denies: Hx Coronary Artery Disease, Hx Deep Vein Thrombosis, Hx Hypercholesterolemia, Hx Hypotension, Hx Hypertension, Hx Pacemaker/ICD, Hx Peripheral Vascular Disease, Hx Rheumatic Fever, Hx Syncope, Hx Valvular Heart Disease, Other Cardiovascular Problems/Disorders Respiratory History: Denies: Hx Asthma, Hx Chronic Bronchitis, Hx Chronic Obstructive Pulmonary Disease (COPD), Hx Cystic Fibrosis, Hx Lung Cancer, Hx Pleural Effusion, Hx Pneumonia, Hx Pulmonary Edema, Hx Pulmonary Embolism, Hx Seasonal Allergies, Hx Sleep Apnea, Other Respiratory Problems/Disorders GI History: Denies: Hx Jaundice Musculoskeletal History: Denies: Hx Osteoporosis Sensory History: Reports: Hx Cataracts - removed, Hx Contacts or Glasses - For reading Denies: Hx Hearing Aid Opthamlomology History: Reports: Hx Cataracts - removed, Hx Contacts or Glasses - For reading Neurological History: Denies: Hx Dementia, Hx Developmental Delay, Hx Headaches, Hx Migraine, Hx Seizures, Hx Spinal Cord Injury, Hx Transient Ischemic Attacks (TIA), Other Neuro Impairments/Disorders - Cancer History Hx Chemotherapy: No Hx Radiation Therapy: No - Surgical History Surgery Procedure, Year, and Place: . tubal Hx Anesthesia Reactions: No - Immunization History Date of Tetanus Vaccine: UNK Date of Influenza Vaccine: Fall 2011 Hx Pertussis Vaccination: No Immunizations Up to Date: Unable to Obtain/Confirm Infectious Disease History: No Infectious Disease History: Denies: Hx Clostridium Difficile, Hx Hepatitis, Hx Human Immunodeficiency Virus (HIV), Hx of Known/Suspected MRSA, Hx Shingles, Hx Tuberculosis, Hx Known/ Suspected VRE, Hx Known/Suspected VRSA, History Other Infectious Disease, Traveled Outside the [place] in Last 30 Days - Family History Known Family History: Positive: Diabetes - Social History Occupation: Unemployed Lives: Alone Alcohol Use: None Hx Substance Use: No Substance Use Type: Reports: None Hx Tobacco Use: No Smoking Status (MU): Never Smoked Tobacco Review of Systems Constitutional: Negative Negative: Fever, Chills, Fatigue Eyes: Negative Cardiovascular: Negative Respiratory: Negative Genitourinary: Negative Positive: no symptoms reported, see HPI Musculoskeletal: Negative Skin: Negative Neurological: Negative All Other Systems Reviewed And Are Negative: Yes Physical Exam Triage Information Reviewed: Yes Vital Signs On Initial Exam: Initial Vitals Temp Pulse Resp BP Pulse Ox 97.8 F 74 16 124/59 99 05/05/17 19:10 05/05/17 19:10 05/05/17 19:10 05/05/17 19:10 05/05/17 19:10 Vital Signs Reviewed: Yes Appearance: Positive: Well-Appearing, Well-Nourished Skin: Positive: Warm, Skin Color Reflects Adequate Perfusion Head/Face: Positive: Normal Head/Face Inspection Eyes: Positive: Normal, GAETANO, Conjunctiva Clear Neck: Positive: Supple, No Lymphadenopathy Respiratory/Lung Sounds: Positive: Clear to Auscultation, Breath Sounds Present Cardiovascular: Positive: RRR, Pulses are Symmetrical in both Upper and Lower Extremities Musculoskeletal: Positive: Normal, Strength/ROM Intact Neurological: Positive: Speech Normal Psychiatric: Positive: Normal - William Coma Scale Coma Scale Total: 15 Diagnostics - Vital Signs Vital Signs Temp Pulse Resp BP Pulse Ox 05/05/17 21:05 97.7 F 70 16 125/59 99 05/05/17 19:10 97.8 F 74 16 124/59 99 - Laboratory Lab Statement: Any lab studies that have been ordered have been reviewed, and results considered in the medical decision making process. Diabetic Course/Dx - Course Course Of Treatment: She has recently removed her insulin pump. She was seen in the hospital and admitted 2 weeks ago and states her sugars have been a bit off and not well controlled with her pump. States now she would like to return to her Humalog sliding scale to which she has been taking for over 40 years. She went to pharmacy and they would not dispense without a script. She states she is unable to eat without taking the medication. Checks her sugars 5 times per day and administers her own medications daily. Currently the weekend and is unable to see her PCP, Sheri Calderon MD. She states she is able to follow up and call the office on Sunday. She is feeling OK at this time and glucose on arrival is 212. She denies any and all symptoms. She is given 2 units based on her sliding scale. 20 units are prescribed to her pharmacy. She has the required equipment. - Diagnoses Provider Diagnoses: Medication requested Discharge - Discharge Plan Condition: Stable Disposition: HOME Prescriptions: Insulin LISPRO* [HumaLOG*] 1 units SUBCUT DIRECTED #20 unit Patient Education Materials: Insulin Lispro (By injection) Referrals: Sheri Calderon MD [Primary Care Provider] - Additional Instructions: Please follow all instructions as necessary for subcutaneous HUMALOG You will need to follow up with Dr. Calderon's office on Sunday for further prescription
== END 2017-05-05 21:05 | disposition home or self-care (01) ==
LOC: ED 19:07
DX: E10.9 Type 1 diabetes mellitus without complications (principal); E03.9 Hypothyroidism, unspecified; E27.1 Primary adrenocortical insufficiency; Z79.4 Long term (current) use of insulin
CPT/HCPCS: 99282

== ENCOUNTER 2017-10-12 21:20 | Emergency (ER) | payer OTHER, MEDICARE ==
[2017-10-12 23:38] VITALS: BP 141/67
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
--- NOTE | 2017-10-13 07:48 | RAD ---
HISTORY: Pain, abrasion, trauma COMPARISONS: None VIEWS: 4, Frontal, lateral, and oblique views of the left elbow FINDINGS: BONE DENSITY: Normal. BONES: There is no displaced fracture. JOINTS: There is no arthropathy. There is no posterior supracondylar fat pad to suggest a joint effusion. ALIGNMENT: There is no dislocation. SOFT TISSUES: Unremarkable. OTHER FINDINGS: None. IMPRESSION: NO ACUTE OSSEOUS INJURY. IF SYMPTOMS PERSIST, RECOMMEND REPEAT IMAGING.
== END 2017-10-12 23:37 | disposition home or self-care (01) ==
LOC: ED 21:20
DX: S50.02XA Contusion of left elbow, initial encounter (principal); V49.88XA Car occupant (driver) (passenger) injured in other specified transport accidents, initial encounter; Y92.89 Other specified places as the place of occurrence of the external cause; E11.649 Type 2 diabetes mellitus with hypoglycemia without coma; Z88.3 Allergy status to other anti-infective agents; Z88.8 Allergy status to other drugs, medicaments and biological substances; Z88.5 Allergy status to narcotic agent
CPT/HCPCS: 99282

== ENCOUNTER 2017-12-06 15:10 | Inpatient (IN) | payer MEDICARE, OTHER ==
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
--- NOTE | 2017-12-06 16:12 | RAD ---
Indication: Altered mental status. Comparison: April 25, 2017 Technique: Upright AP 1605 hours Report: Clear lungs and pleural spaces. Negative for pneumothorax. The heart, pulmonary vasculature, and mediastinal contours are unremarkable. Unremarkable osseous structures and soft tissue contours. IMPRESSION: #. No evidence for acute intrathoracic disease.
--- NOTE | 2017-12-06 16:55 | RAD ---
Indication: Altered mental status. Comparison: April 25, 2017 Technique: Noncontrast CT vertex of skull through foramen magnum. Report: The sulci, ventricles, and basal cisterns are normal for age. Moran matter white matter differentiation is preserved without evidence for edema. No intra or extra axial hemorrhage, mass, or fluid collection detected. Unremarkable visualized orbital contents. Unremarkable calvarium and skull base. Unremarkable scalp. The visualized paranasal sinuses and mastoid air spaces are clear. IMPRESSION: #. Negative unenhanced head CT.
[2017-12-06 17:33] LABS: Hematocrit 41 % (35-47); Hemoglobin 13.4 g/dl (12.0-16.0); Mean Corpuscular HGB Conc 33 g/dl (31-36); Mean Corpuscular Hemoglobin 31 pg (27-31); Mean Corpuscular Volume 97 fL (80-97); Platelet Count 170 10^3/ul (150-450); Red Blood Count 4.26 10^6/ul (4.00-5.40); Red Cell Distribution Width 13 % (10.5-15); White Blood Count 10.2 10^3/ul (3.5-10.8)
[2017-12-06 17:38] LABS: INR 1.07 (0.77-1.02)
[2017-12-06 17:54] LABS: EGFR Non-African American 20.7 (>60)
[2017-12-06 17:57] LABS: ABS Basophils 0.1 10^3/ul (0-0.2); ABS Eosinophils 0.2 10^3/ul (0-0.6); ABS Lymphocytes 1.7 10^3/ul (1.0-4.8); ABS Monocytes 1.7 10^3/ul (0-0.8); ABS Neutrophils 6.6 10^3/ul (1.5-7.7); ABS Nucleated RBC 0 10^3/ul; Eosinophil % 1.7 % (0-6); Nucleated Red Blood Cells % 0
[2017-12-06] MEDS ORDERED: NS 0.9% 1000 ML* 2,000 ML IV ONE (18:07)
[2017-12-06] MEDS ORDERED: Insulin REGULAR(*) 1 UNITS UNIT IV PUSH ONE (18:18)
[2017-12-06] MEDS ORDERED: Insulin IVPB 100 units/100 ml 100 UNITS/100 ML UNIT IVPB ONE (19:18)
[2017-12-06] MEDS: Insulin IVPB 100 units/100 ml 100 UNITS/100 ML UNIT IVPB ONE (21:10)
[2017-12-06] MEDS ORDERED: Magnesium Sulfate IV* 2 GM in NS 0.9% 100 ML* 100 ML IV ONE (21:14)
--- NOTE | 2017-12-06 21:25 | HP ---
H&P (Free Text) History and Physical: History and Physical - Critical Care Limitations in history/physical: encephalopathy HPI: 72y F pmhx of DM, addisons disease, hypothyroidism; brought in by EMS, neighbor called EMS after patient was more confused in the past day, intermittently lethargic. History is she recently lost her . On insulin pump supposedly but may have stopped working. Limited history due to delirium and confused state. In ER, afebrile, tachycardic, BP stable. Initially thought to have taken more pain meds than normal but then found to be hyperglycemic. Lab work demonstrated DKA. Started on IVF and Insulin IV. ROS: limited due to encephalopathy PMHx: DM, hypothyroidism, addisons disease PSHx: unknown Family History: unknown Social History: Alcohol-none, Smoking-none, Drug use-none; recently lost her as per chart Allergies: Allergies Allergy/AdvReac Type Severity Reaction Status Date / Time amoxicillin [From Augmentin] Allergy GI Upset Verified 10/12/17 22:09 atorvastatin Allergy GI Upset Verified 10/12/17 22:09 clavulanic acid Allergy GI Upset Verified 10/12/17 22:09 [From Augmentin] codeine Allergy Nausea Verified 10/12/17 22:09 levofloxacin [From Levaquin] Allergy GI Upset Verified 10/12/17 22:09 rosuvastatin [From Crestor] Allergy See Comment Verified 10/12/17 22:09 simvastatin [From Zocor] Allergy See Comment Verified 10/12/17 22:09 tramadol Allergy Nausea And Verified 10/12/17 22:09 Vomiting venlafaxine [From Effexor] Allergy GI Upset Verified 10/12/17 22:09 Home Medications: Fludrocortisone Acetate TAB* [Florinef TAB*] 0.05 mg PO DAILY 04/25/17 [History Confirmed 12/06/17] Hydrocortisone TAB* [Cortef TAB*] 10 mg PO DAILY 04/25/17 [History Confirmed 05/14] Hydrocortisone TAB* [Cortef TAB*] 20 mg PO DAILY 04/25/17 [History Confirmed 05/14] Insulin LISPRO* [HumaLOG*] 0 units SUBCUT SEE INSTRUCTIONS 04/25/17 [History Confirmed 12/06/17] Levothyroxine TAB* [Synthroid TAB*] 88 mcg PO DAILY 04/25/17 [History Confirmed 12/06/17] Aspirin EC TAB* [Ecotrin EC Low Dose 81 MG*] 81 mg PO DAILY 12/06/17 [History Confirmed 12/06/17] Biotin 10 mg PO DAILY 12/06/17 [History Confirmed 12/06/17] Clobetasol Propionate [Clobex] 0.05 % TOPICAL BID PRN 12/06/17 [History Confirmed 12/06/17] Escitalopram (NF) [Lexapro 10 mg (NF)] 5 mg PO DAILY 12/06/17 [History Confirmed 12/06/17] L.acidoph,Paracasei, B.lactis [Probiotic] 1 cap PO DAILY 12/06/17 [History Confirmed 12/06/17] Pravastatin (NF) [Pravachol (NF)] 10 mg PO 1700 12/06/17 [History Confirmed 05/14] Ubidecarenone [Co Q-10] 100 mg PO DAILY 12/06/17 [History Confirmed 12/06/17] Tele: sinus tachy Vitals: Vital Signs Temp 98.2 F 12/06/17 15:28 Pulse 103 12/06/17 19:00 Resp 18 12/06/17 20:00 BP 130/61 12/06/17 19:47 Pulse Ox 98 12/06/17 19:00 Intake & Output 12/06/17 12/06/17 12/07/17 06:59 18:59 06:59 Weight 160 lb O2/Vent: RA Infusions: NS, Insulin Current Medications: Aspirin (Aspirin Ec Tab*) 81 mg PO DAILY [facility] Escitalopram Oxalate (Lexapro (Nf)) 5 mg PO DAILY [facility] Fludrocortisone Acetate (Florinef Tab*) 0.05 mg PO DAILY [facility] Hydrocortisone (Cortef Tab*) 10 mg PO DAILY [facility] Insulin Human Regular (Insulin Regular Ivpb) 100 units in 100 mls @ 7.258 mls/ hr IVPB Q13H DAVID; Protocol Sodium Chloride (Ns 0.9% 1000 Ml*) 1,000 mls @ 100 mls/hr IV PER RATE [facility] Magnesium Sulfate 2 gm/ Sodium (Chloride) 104 mls @ 104 mls/hr IV ONCE ONE Stop: 12/06/17 22:13 Levothyroxine Sodium (Synthroid Tab*) 88 mcg PO DAILY [facility] Pravastatin Sodium (Pravachol (Nf)) 10 mg PO 1700 [facility] Physical Exam: General: awake, alert, no distress, no diaphoresis; confused Head: normocephalic, atraumatic HEENT: no pallor, no icterus, moist mucous membranes Neck: soft, supple, no jvd, no stridor CVS: tachy, regular, no murmur Resp: bilateral air entry, no rhales, no wheeze, no rhonchi, no acc muscle use Abdomen: soft, mild tenderness+ diffuse, nondistended, bowel sounds present Ext: pulses+, warm, no edema Skin: intact, no breakdown, no dryness Neuro: awake, alert, confused, moving all extremities, no gross focal deficit Labs: Laboratory Results - last 24 hr 12/06/17 12/06/17 12/06/17 15:44 17:27 17:27 WBC 10.2 RBC 4.26 Hgb 13.4 Hct 41 MCV 97 MCH 31 MCHC 33 RDW 13 Plt Count 170 MPV 9.0 Neut % (Auto) 64.6 Lymph % (Auto) 17.0 L Cochran % (Auto) 16.2 H Eos % (Auto) 1.7 Baso % (Auto) 0.5 Absolute Neuts (auto) 6.6 Absolute Lymphs (auto) 1.7 Absolute Monos (auto) 1.7 H Absolute Eos (auto) 0.2 Absolute Basos (auto) 0.1 Absolute Nucleated RBC 0 Nucleated RBC % 0 INR (Anticoag Therapy) Sodium 119 L* Potassium 5.5 H Chloride 82 L Carbon Dioxide 11 L* Anion Gap 26 H BUN 38 H Creatinine 2.32 H Est GFR ( Amer) 25.0 Est GFR (Non-Af Amer) 20.7 BUN/Creatinine Ratio 16.4 Glucose 819 H* POC Glucose (mg/dL) > 444 H* Serum Osmolality Lactic Acid Calcium 9.2 Phosphorus 5.2 H Magnesium 1.8 L Total Bilirubin 0.70 AST 14 ALT 11 Alkaline Phosphatase 71 Troponin I 0.01 Total Protein 6.2 L Albumin 3.5 Globulin 2.7 Albumin/Globulin Ratio 1.3 Salicylates < 2.50 Acetaminophen < 15 Serum Alcohol < 10 12/06/17 12/06/17 12/06/17 17:27 17:27 17:27 WBC RBC Hgb Hct MCV MCH MCHC RDW Plt Count MPV Neut % (Auto) Lymph % (Auto) Cochran % (Auto) Eos % (Auto) Baso % (Auto) Absolute Neuts (auto) Absolute Lymphs (auto) Absolute Monos (auto) Absolute Eos (auto) Absolute Basos (auto) Absolute Nucleated RBC Nucleated RBC % INR (Anticoag Therapy) 1.07 H Sodium Potassium Chloride Carbon Dioxide Anion Gap BUN Creatinine Est GFR ( Amer) Est GFR (Non-Af Amer) BUN/Creatinine Ratio Glucose POC Glucose (mg/dL) Serum Osmolality 315 H Lactic Acid 2.8 H* Calcium Phosphorus Magnesium Total Bilirubin AST ALT Alkaline Phosphatase Troponin I Total Protein Albumin Globulin Albumin/Globulin Ratio Salicylates Acetaminophen Serum Alcohol 12/06/17 20:26 WBC RBC Hgb Hct MCV MCH MCHC RDW Plt Count MPV Neut % (Auto) Lymph % (Auto) Cochran % (Auto) Eos % (Auto) Baso % (Auto) Absolute Neuts (auto) Absolute Lymphs (auto) Absolute Monos (auto) Absolute Eos (auto) Absolute Basos (auto) Absolute Nucleated RBC Nucleated RBC % INR (Anticoag Therapy) Sodium Potassium Chloride Carbon Dioxide Anion Gap BUN Creatinine Est GFR ( Amer) Est GFR (Non-Af Amer) BUN/Creatinine Ratio Glucose POC Glucose (mg/dL) > 444 H* Serum Osmolality Lactic Acid Calcium Phosphorus Magnesium Total Bilirubin AST ALT Alkaline Phosphatase Troponin I Total Protein Albumin Globulin Albumin/Globulin Ratio Salicylates Acetaminophen Serum Alcohol Imaging: cxr 12/[address] brain 12/06 no acute process Assessment: 72y F pmhx of DM, addisons disease, hypothyroidism; brought in by EMS, neighbor called EMS after patient was more confused in the past day, intermittently lethargic. History is she recently lost her . On insulin pump supposedly but may have stopped working. Limited history due to delirium and confused state. Found to be in DKA. -DKA -metabolic encephalopathy -REZA -hyperkalemia -abdominal tenderness -r/o depression Plan: Neuro- confused; suspect metabolic etiology; CT brain negative. delirium prec. avoid bdz. CVS- sinus tachy; prob from volume depletion/DKA. IVF hydration. no clear infection signs, will monitor. LA trend, likely from volume depletion and metabolic dysfunction from DKA Resp- on RA, no distress. ID- afebrile. wbc normal. no infectious source. CXR clear. no abx indicated. GI- tender abd; DKA? obtain CT abd/pelvis now. NPO. PPI daily. Renal- REZA, suspect from volume depletion. Hyperkalemia+, no ekg changes though. metabolic acidosis mixed from LA and DKA. IVF hydration NS. monitor K and Phos levels. replete Mg IV 2gm. Heme- hg stbale, plt okay Endo- DKA, IV insulin and IVF. K and Phos monitoring. Musculsk- bedrest, pressure ulcer proph Wounds- none Nutrition- NPO DVT prophylaxis: scds, heparin sq GI prophylaxis: ppi Central Line: no Arterial Line: no Calderon Cathetor: no Disposition: admit to ICU; >2 midnight expected length of stay Code Status: full code Total Critical Care time is 45 minutes, excluding procedures/teaching Joaquin Calabrese MD Ict Help Desk Technician (Electronically Signed)
--- NOTE | 2017-12-06 21:29 | PN ---
Progress Note - Progress Note Date of Service: 12/06/17 Note: will need psych consult once DKA improved for depression eval.
--- NOTE | 2017-12-06 22:05 | RAD ---
INDICATION: Confusion, altered mental status, abdominal pain. COMPARISON: No relevant prior exams available on the [facility] PACS for comparison. TECHNIQUE: Multidetector CT images were obtained from the lung bases to the ischial tuberosities. Evaluation of the viscera is limited without IV contrast. Multiplanar reformation. REPORT: Minimal bibasilar dependent atelectasis at the visualized lung bases. Diffuse decreased density of the liver consistent with hepatosteatosis. Increased density of the gallbladder lumen suspicious for presence of biliary sludge without additional CT abnormality of the gallbladder. Negative for biliary dilatation. Atrophic pancreas. Unremarkable spleen. Negative for CT abnormality of the upper GI, small bowel, appendix, or colon. Negative for ascites, free air, or hernias. Normal adrenal glands. Malrotated RIGHT kidney. Negative for urolithiasis or hydronephrosis. No conspicuous focal renal lesions. Unremarkable nondilated ureters and distended urinary bladder as well as the anteverted uterus and adnexal regions. Negative for lymphadenopathy. Atherosclerotic calcification of normal diameter abdominal aorta and iliac arteries. Significantly decompressed inferior vena cava consistent with lower volume state. Bone density appears decreased throughout. Multilevel advanced lumbar sacral spine degenerative spondylosis and facet joint osteoarthritis. Associated moderately severe acquired central canal stenosis at L3-L4 and moderate acquired central canal stenosis at L4-L5. IMPRESSION: #. Hepatosteatosis. #. Probable biliary sludge in the gallbladder. #. No pathologic process of the alimentary tract evident. #. Negative for obstructive uropathy. #. Negative for lymphadenopathy. #. Probable low volume state. #. Lumbar sacral spine degenerative spondylosis and facet joint osteoarthritis. Associated moderately severe acquired central canal stenosis at L3-L4 and moderate acquired central canal stenosis at L4-L5.
--- NOTE | 2017-12-06 23:07 | PN ---
Progress Note - Progress Note Date of Service: 12/06/17 Note: Central Line Procedure Note Indication: venous access Diagnosis: DKA, encephalopathy Performed by: Joaquin Calabrese MD Consent: Emergent [place] Protocol: Time-out was performed and the correct patient and site were verified - Prior labs/history was reviewed prior to procedure - Full sterile precautions with chlorhexidine/full drapes/gowns/gloves utilized - Right femoral Veing visualized with ultrasound; patient restless so internal jugular access not safe. - Vessel accessed under ultrasound guidance with return of nonpulsatile blood. A guidewire was passed into vessel and confirmed in vessel with ultrasound. 1 attempt was made to access vessel. Vessel was dilated and cathetor was passed over wire into vessel. All ports demonstrated good blood return and flushed. Catheter was sutured to site and dressing applied. Adequate hemostasis was achieved EBL <5 cc No immediate complications noted, patient tolerated procedure well. Joaquin Calabrese MD Traffic And Transport Planner (Electronically Signed)
[2017-12-06] MEDS: NS 0.9% 1000 ML* 1,000 ML IV SCH (23:26)
[2017-12-06] MEDS: Fludrocortisone Acetate TAB* 0.1 MG PO SCH (23:31)
[2017-12-06] MEDS: Levothyroxine TAB* 88 MCG TAB PO SCH (23:32)
[2017-12-06 23:45] LABS: EGFR Non-African American 23.3 (>60)
[2017-12-07] MEDS: Heparin VIAL(*) 5000 UNITS/ML VIAL (FIVE THOUSAND) SUBCUT SCH ×4 (00:24→21:44)
[2017-12-07] MEDS: Insulin IVPB 100 units/100 ml 100 UNITS/100 ML UNIT IVPB ONE ×2 (01:01→01:02)
[2017-12-07] MEDS: Insulin IVPB 100 units/100 ml 100 UNITS/100 ML UNIT IVPB SCH ×2 (01:03→19:13)
[2017-12-07] MEDS ORDERED: NS 0.45% KCl 20 Meq 1000 ML* 1,000 ML IV SCH (03:00)
[2017-12-07] MEDS: NS 0.9% 1000 ML* 1,000 ML IV SCH ×2 (03:24→04:39)
[2017-12-07 04:12] LABS: EGFR Non-African American 31.3 (>60)
[2017-12-07 04:13] LABS: Urine Appearance Cloudy; Urine Blood 2+ (Negative); Urine Color Yellow; Urine Ketones Trace (Negative); Urine Protein Negative (Negative); Urine Red Blood Cell 3+(>10/hpf) (Absent); Urine Specific Gravity 1.013 (1.010-1.030); Urine Urobilinogen Negative (Negative); Urine White Blood Cell 3+(>20/hpf) (Absent)
[2017-12-07] MEDS ORDERED: D5W 1/2 NS KCl 20 Meq 1000 ML* 1,000 ML IV SCH (04:57)
[2017-12-07] MEDS ORDERED: KCL 20 MEQ/100 ML IVPREMIX* 20 MEQ/100 ML BAG IV ONE (05:00)
[2017-12-07] MEDS: Levothyroxine TAB* 88 MCG TAB PO SCH (06:47)
--- NOTE | 2017-12-07 07:58 | RAD ---
HISTORY: Confirm Central Line Placement COMPARISONS: None VIEWS: 1: frontal portable view of the chest at 11:46 PM. FINDINGS: LINES AND TUBES: No central venous catheter is noted on the submitted images. CARDIOMEDIASTINAL SILHOUETTE: The cardiomediastinal silhouette is normal for portable technique. PLEURA: The costophrenic angles are sharp. No pleural abnormalities are noted. There is no pneumothorax. LUNG PARENCHYMA: The lungs are clear. ABDOMEN: The upper abdomen is clear. There is no subphrenic gas. BONES AND SOFT TISSUES: Degenerative changes are noted. IMPRESSION: NO ACTIVE CARDIOPULMONARY DISEASE. NO CENTRAL VENOUS CATHETER IS NOTED ON THE SUBMITTED IMAGES.
[2017-12-07 08:01] LABS: Hematocrit 35 % (35-47); Hemoglobin 12.1 g/dl (12.0-16.0); Mean Corpuscular HGB Conc 34 g/dl (31-36); Mean Corpuscular Hemoglobin 32 pg (27-31); Mean Corpuscular Volume 92 fL (80-97); Platelet Count 146 10^3/ul (150-450); Red Blood Count 3.83 10^6/ul (4.00-5.40); Red Cell Distribution Width 13 % (10.5-15); White Blood Count 7.4 10^3/ul (3.5-10.8)
[2017-12-07 08:17] LABS: EGFR Non-African American 40.7 (>60)
--- NOTE | 2017-12-07 09:35 | PN ---
Progress Note - Progress Note Date of Service: 12/07/17 Note: Progress Note - Critical Care 24 hour events: -admitted yesterday; still confused; overnight tmax 100.5, blood cx sent -still on insulin, changed to d5 1/2 ns infusion -confused, but awakens, answers some questions Tele: sinus tachy Vitals: Vital Signs Temp 99.3 F 12/07/17 07:35 Pulse 96 12/07/17 09:01 Resp 24 12/07/17 09:01 BP 116/57 12/07/17 09:01 Pulse Ox 95 12/07/17 09:01 Intake & Output 12/06/17 12/07/17 12/07/17 18:59 06:59 18:59 Intake Total 5492 Output Total 1760 180 Balance 3732 -180 Weight 160 lb 182 lb 1.629 oz Intake: IV Fluids 5463 D5W 1/2 NS 20 meq KCL 189 NS (0.9%) 3274 Medicated IV 29 CC - Insulin 29 Output: Urine 75 Calderon 1185 180 Residual 500 Calderon 500 O2/Vent: RA Infusions: d5 1/2NS, Insulin Current Medications: Aspirin (Aspirin Ec Tab*) 81 mg PO DAILY [facility] Citalopram Hydrobromide (Celexa Tab*) 10 mg PO DAILY [facility] Fludrocortisone Acetate (Florinef Tab*) 0.05 mg PO DAILY [facility] Last Admin: 12/06/17 23:31 Dose: Not Given Heparin Sodium (Porcine) (Heparin Vial(*)) 5,000 units SUBCUT Q8HR [facility] Last Admin: 12/07/17 06:14 Dose: 5,000 units Hydrocortisone (Cortef Tab*) 10 mg PO DAILY [facility] Insulin Human Regular (Insulin Regular Ivpb) 100 units in 100 mls @ 7.258 mls/ hr IVPB Q13H [facility]; Protocol Last Admin: 12/07/17 01:03 Dose: 7.258 mls/hr Potassium Chloride/Dextrose (D5w 1/2 Ns Kcl 20 Meq 1000 Ml*) 1,000 mls @ 125 mls/hr IV PER RATE [facility] Levothyroxine Sodium (Synthroid Tab*) 88 mcg PO 0600 [facility] Last Admin: 12/07/17 06:47 Dose: Not Given Pantoprazole Sodium (Protonix Iv*) 40 mg IV DAILY [facility] Pravastatin Sodium (Pravachol (Nf)) 10 mg PO 1700 [facility] Physical Exam: General: awake, no distress, no diaphoresis; confused Head: normocephalic, atraumatic HEENT: no pallor, no icterus, moist mucous membranes Neck: soft, supple, no jvd, no stridor CVS: tachy, regular, no murmur Resp: bilateral air entry, no rhales, no wheeze, no rhonchi, no acc muscle use Abdomen: soft, nontender, nondistended, bowel sounds present Ext: pulses+, warm, no edema Skin: intact, no breakdown, no dryness Neuro: awake, alert, confused, moving all extremities, no gross focal deficit Labs: Laboratory Results - last 24 hr 12/06/17 12/06/17 12/06/17 03:30 15:44 17:27 WBC 10.2 RBC 4.26 Hgb 13.4 Hct 41 MCV 97 MCH 31 MCHC 33 RDW 13 Plt Count 170 MPV 9.0 Neut % (Auto) 64.6 Lymph % (Auto) 17.0 L [place] % (Auto) 16.2 H Eos % (Auto) 1.7 Baso % (Auto) 0.5 Absolute Neuts (auto) 6.6 Absolute Lymphs (auto) 1.7 Absolute Monos (auto) 1.7 H Absolute Eos (auto) 0.2 Absolute Basos (auto) 0.1 Absolute Nucleated RBC 0 Nucleated RBC % 0 INR (Anticoag Therapy) Sodium Potassium Chloride Carbon Dioxide Anion Gap BUN Creatinine Est GFR ( Amer) Est GFR (Non-Af Amer) BUN/Creatinine Ratio Glucose POC Glucose (mg/dL) > 444 H* Serum Osmolality Lactic Acid Calcium Phosphorus Magnesium Total Bilirubin AST ALT Alkaline Phosphatase Troponin I Total Protein Albumin Globulin Albumin/Globulin Ratio Urine Color Urine Appearance Urine pH Ur Specific [place] Urine Protein Urine Ketones Urine Blood Urine Nitrate Urine Bilirubin Urine Urobilinogen Ur Leukocyte Esterase Urine WBC (Auto) Urine RBC (Auto) Ur Squamous Epith Cells Urine Bacteria Hyaline Casts Granular Casts Urine Glucose Salicylates Urine Opiates Screen None detected Acetaminophen Ur Barbiturates Screen None detected Ur Phencyclidine Scrn None detected Ur Amphetamines Screen None detected U Benzodiazepines Scrn None detected Urine Cocaine Screen None detected U Cannabinoids Screen None detected Serum Alcohol 12/06/17 12/06/17 12/06/17 17:27 17:27 17:27 WBC RBC Hgb Hct MCV MCH MCHC RDW Plt Count MPV Neut % (Auto) Lymph % (Auto) [place] % (Auto) Eos % (Auto) Baso % (Auto) Absolute Neuts (auto) Absolute Lymphs (auto) Absolute Monos (auto) Absolute Eos (auto) Absolute Basos (auto) Absolute Nucleated RBC Nucleated RBC % INR (Anticoag Therapy) 1.07 H Sodium 119 L* Potassium 5.5 H Chloride 82 L Carbon Dioxide 11 L* Anion Gap 26 H BUN 38 H Creatinine 2.32 H Est GFR ( Amer) 25.0 Est GFR (Non-Af Amer) 20.7 BUN/Creatinine Ratio 16.4 Glucose 819 H* POC Glucose (mg/dL) Serum Osmolality Lactic Acid 2.8 H* Calcium 9.2 Phosphorus 5.2 H Magnesium 1.8 L Total Bilirubin 0.70 AST 14 ALT 11 Alkaline Phosphatase 71 Troponin I 0.01 Total Protein 6.2 L Albumin 3.5 Globulin 2.7 Albumin/Globulin Ratio 1.3 Urine Color Urine Appearance Urine pH Ur Specific [place] Urine Protein Urine Ketones Urine Blood Urine Nitrate Urine Bilirubin Urine Urobilinogen Ur Leukocyte Esterase Urine WBC (Auto) Urine RBC (Auto) Ur Squamous Epith Cells Urine Bacteria Hyaline Casts Granular Casts Urine Glucose Salicylates < 2.50 Urine Opiates Screen Acetaminophen < 15 Ur Barbiturates Screen Ur Phencyclidine Scrn Ur Amphetamines Screen U Benzodiazepines Scrn Urine Cocaine Screen U Cannabinoids Screen Serum Alcohol < 10 12/06/17 12/06/17 12/06/17 17:27 20:26 21:03 WBC RBC Hgb Hct MCV MCH MCHC RDW Plt Count MPV Neut % (Auto) Lymph % (Auto) [place] % (Auto) Eos % (Auto) Baso % (Auto) Absolute Neuts (auto) Absolute Lymphs (auto) Absolute Monos (auto) Absolute Eos (auto) Absolute Basos (auto) Absolute Nucleated RBC Nucleated RBC % INR (Anticoag Therapy) Sodium Potassium Chloride Carbon Dioxide Anion Gap BUN Creatinine Est GFR ( Amer) Est GFR (Non-Af Amer) BUN/Creatinine Ratio Glucose 667 H* POC Glucose (mg/dL) > 444 H* Serum Osmolality 315 H Lactic Acid Calcium Phosphorus Magnesium Total Bilirubin AST ALT Alkaline Phosphatase Troponin I Total Protein Albumin Globulin Albumin/Globulin Ratio Urine Color Urine Appearance Urine pH Ur Specific [place] Urine Protein Urine Ketones Urine Blood Urine Nitrate Urine Bilirubin Urine Urobilinogen Ur Leukocyte Esterase Urine WBC (Auto) Urine RBC (Auto) Ur Squamous Epith Cells Urine Bacteria Hyaline Casts Granular Casts Urine Glucose Salicylates Urine Opiates Screen Acetaminophen Ur Barbiturates Screen Ur Phencyclidine Scrn Ur Amphetamines Screen U Benzodiazepines Scrn Urine Cocaine Screen U Cannabinoids Screen Serum Alcohol 12/06/17 12/06/17 12/06/17 22:27 23:17 23:17 WBC RBC Hgb Hct MCV MCH MCHC RDW Plt Count MPV Neut % (Auto) Lymph % (Auto) [place] % (Auto) Eos % (Auto) Baso % (Auto) Absolute Neuts (auto) Absolute Lymphs (auto) Absolute Monos (auto) Absolute Eos (auto) Absolute Basos (auto) Absolute Nucleated RBC Nucleated RBC % INR (Anticoag Therapy) Sodium 127 L D Potassium 3.9 D Chloride 96 L Carbon Dioxide 17 L Anion Gap 14 H BUN 37 H Creatinine 2.09 H Est GFR ( Amer) 28.2 Est GFR (Non-Af Amer) 23.3 BUN/Creatinine Ratio 17.7 Glucose 374 H POC Glucose (mg/dL) 361 H Serum Osmolality Lactic Acid 2.1 H* Calcium 8.5 L Phosphorus 3.0 Magnesium Total Bilirubin AST ALT Alkaline Phosphatase Troponin I Total Protein Albumin Globulin Albumin/Globulin Ratio Urine Color Urine Appearance Urine pH Ur Specific [place] Urine Protein Urine Ketones Urine Blood Urine Nitrate Urine Bilirubin Urine Urobilinogen Ur Leukocyte Esterase Urine WBC (Auto) Urine RBC (Auto) Ur Squamous Epith Cells Urine Bacteria Hyaline Casts Granular Casts Urine Glucose Salicylates Urine Opiates Screen Acetaminophen Ur Barbiturates Screen Ur Phencyclidine Scrn Ur Amphetamines Screen U Benzodiazepines Scrn Urine Cocaine Screen U Cannabinoids Screen Serum Alcohol 12/06/17 12/07/17 12/07/17 23:22 00:44 02:09 WBC RBC Hgb Hct MCV MCH MCHC RDW Plt Count MPV Neut % (Auto) Lymph % (Auto) [place] % (Auto) Eos % (Auto) Baso % (Auto) Absolute Neuts (auto) Absolute Lymphs (auto) Absolute Monos (auto) Absolute Eos (auto) Absolute Basos (auto) Absolute Nucleated RBC Nucleated RBC % INR (Anticoag Therapy) Sodium Potassium Chloride Carbon Dioxide Anion Gap BUN Creatinine Est GFR ( Amer) Est GFR (Non-Af Amer) BUN/Creatinine Ratio Glucose POC Glucose (mg/dL) 382 H 272 H 196 H Serum Osmolality Lactic Acid Calcium Phosphorus Magnesium Total Bilirubin AST ALT Alkaline Phosphatase Troponin I Total Protein Albumin Globulin Albumin/Globulin Ratio Urine Color Urine Appearance Urine pH Ur Specific [place] Urine Protein Urine Ketones Urine Blood Urine Nitrate Urine Bilirubin Urine Urobilinogen Ur Leukocyte Esterase Urine WBC (Auto) Urine RBC (Auto) Ur Squamous Epith Cells Urine Bacteria Hyaline Casts Granular Casts Urine Glucose Salicylates Urine Opiates Screen Acetaminophen Ur Barbiturates Screen Ur Phencyclidine Scrn Ur Amphetamines Screen U Benzodiazepines Scrn Urine Cocaine Screen U Cannabinoids Screen Serum Alcohol 12/07/17 12/07/17 12/07/17 03:09 03:30 03:30 WBC RBC Hgb Hct MCV MCH MCHC RDW Plt Count MPV Neut % (Auto) Lymph % (Auto) [place] % (Auto) Eos % (Auto) Baso % (Auto) Absolute Neuts (auto) Absolute Lymphs (auto) Absolute Monos (auto) Absolute Eos (auto) Absolute Basos (auto) Absolute Nucleated RBC Nucleated RBC % INR (Anticoag Therapy) Sodium 133 L Potassium 3.3 L Chloride 103 Carbon Dioxide 20 L Anion Gap 10 BUN 34 H Creatinine 1.62 H Est GFR ( Amer) 37.9 Est GFR (Non-Af Amer) 31.3 BUN/Creatinine Ratio 21.0 H Glucose 75 POC Glucose (mg/dL) 141 H Serum Osmolality Lactic Acid Calcium 8.4 L Phosphorus 2.6 Magnesium Total Bilirubin AST ALT Alkaline Phosphatase Troponin I Total Protein Albumin Globulin Albumin/Globulin Ratio Urine Color Yellow Urine Appearance Cloudy Urine pH 5.0 Ur Specific [place] 1.013 Urine Protein Negative Urine Ketones Trace A Urine Blood 2+ A Urine Nitrate Negative Urine Bilirubin Negative Urine Urobilinogen Negative Ur Leukocyte Esterase 1+ A Urine WBC (Auto) 3+(>20/hpf) A Urine RBC (Auto) 3+(>10/hpf) A Ur Squamous Epith Cells Present A Urine Bacteria Absent Hyaline Casts Present A Granular Casts Present A Urine Glucose Negative Salicylates Urine Opiates Screen Acetaminophen Ur Barbiturates Screen Ur Phencyclidine Scrn Ur Amphetamines Screen U Benzodiazepines Scrn Urine Cocaine Screen U Cannabinoids Screen Serum Alcohol 12/07/17 12/07/17 12/07/17 03:30 04:56 06:25 WBC RBC Hgb Hct MCV MCH MCHC RDW Plt Count MPV Neut % (Auto) Lymph % (Auto) [place] % (Auto) Eos % (Auto) Baso % (Auto) Absolute Neuts (auto) Absolute Lymphs (auto) Absolute Monos (auto) Absolute Eos (auto) Absolute Basos (auto) Absolute Nucleated RBC Nucleated RBC % INR (Anticoag Therapy) Sodium Potassium Chloride Carbon Dioxide Anion Gap BUN Creatinine Est GFR ( Amer) Est GFR (Non-Af Amer) BUN/Creatinine Ratio Glucose POC Glucose (mg/dL) 79 131 H Serum Osmolality Lactic Acid 1.6 Calcium Phosphorus Magnesium Total Bilirubin AST ALT Alkaline Phosphatase Troponin I Total Protein Albumin Globulin Albumin/Globulin Ratio Urine Color Urine Appearance Urine pH Ur Specific [place] Urine Protein Urine Ketones Urine Blood Urine Nitrate Urine Bilirubin Urine Urobilinogen Ur Leukocyte Esterase Urine WBC (Auto) Urine RBC (Auto) Ur Squamous Epith Cells Urine Bacteria Hyaline Casts Granular Casts Urine Glucose Salicylates Urine Opiates Screen Acetaminophen Ur Barbiturates Screen Ur Phencyclidine Scrn Ur Amphetamines Screen U Benzodiazepines Scrn Urine Cocaine Screen U Cannabinoids Screen Serum Alcohol 12/07/17 12/07/17 12/07/17 07:45 07:45 07:45 WBC 7.4 RBC 3.83 L Hgb 12.1 Hct 35 MCV 92 MCH 32 H MCHC 34 RDW 13 Plt Count 146 L MPV 8.0 Neut % (Auto) Lymph % (Auto) [place] % (Auto) Eos % (Auto) Baso % (Auto) Absolute Neuts (auto) Absolute Lymphs (auto) Absolute Monos (auto) Absolute Eos (auto) Absolute Basos (auto) Absolute Nucleated RBC Nucleated RBC % INR (Anticoag Therapy) Sodium 133 L Potassium 4.2 Chloride 105 Carbon Dioxide 17 L Anion Gap 11 BUN 30 H Creatinine 1.29 H Est GFR ( Amer) 49.3 Est GFR (Non-Af Amer) 40.7 BUN/Creatinine Ratio 23.3 H Glucose 193 H POC Glucose (mg/dL) Serum Osmolality Lactic Acid 1.8 Calcium 8.1 L Phosphorus 2.8 Magnesium Total Bilirubin AST ALT Alkaline Phosphatase Troponin I Total Protein Albumin Globulin Albumin/Globulin Ratio Urine Color Urine Appearance Urine pH Ur Specific [place] Urine Protein Urine Ketones Urine Blood Urine Nitrate Urine Bilirubin Urine Urobilinogen Ur Leukocyte Esterase Urine WBC (Auto) Urine RBC (Auto) Ur Squamous Epith Cells Urine Bacteria Hyaline Casts Granular Casts Urine Glucose Salicylates Urine Opiates Screen Acetaminophen Ur Barbiturates Screen Ur Phencyclidine Scrn Ur Amphetamines Screen U Benzodiazepines Scrn Urine Cocaine Screen U Cannabinoids Screen Serum Alcohol Imaging: cxr 12/[address] brain 12/[address] abd/pelvis 12/06 - hepatosis, biliary sludge+ Assessment: 72y F pmhx of DM, addisons disease, hypothyroidism; brought in by EMS, neighbor called EMS after patient was more confused in the past day, intermittently lethargic. History is she recently lost her . On insulin pump supposedly but may have stopped working. Limited history due to delirium and confused state. Found to be in DKA. -DKA -metabolic encephalopathy -REZA -hyperkalemia -abdominal tenderness -r/o depression Plan: Neuro- confused still; suspect metabolic etiology; CT brain negative. delirium prec. avoid bdz. CVS- sinus tachy; prob from volume depletion/DKA. IVF d5 1/2 NS. blood cx done. LA improved. BP stable Resp- on RA, no distress. ID- tmax 100.5, wbc normal. blood cx done. repeat urinarlysis, seems contaminated. given empiric abx for possible UTI, ceftriaxone IV for now. GI- tender abd on deep palp; CT a/p negative. will monitor. NPO. PPI daily. Renal- REZA improving. making urine. Gap closed but now nongap acidosis, possibly from renal insuff? Replete K as needed. cont IVF d5 1/2 NS for metabolic acidosis. Heme- hg stable, plt okay Endo- DKA with gap resolved, but still acidotic. keep IV insulin and d5 for today, re-eval later today and may switch to SQ insulin Musculsk- bedrest, pressure ulcer proph Wounds- none Nutrition- NPO DVT prophylaxis: scds, heparin sq GI prophylaxis: ppi Central Line: right fem tlc 12/06 Arterial Line: no Calderon Cathetor: yes Disposition: ICU Code Status: full code Total Critical Care time is 30 minutes, excluding procedures/teaching Joaquin Calabrese MD Hydrologist (Electronically Signed)
[2017-12-07] MEDS: Pantoprazole IV* 40 MG IV SCH (10:17)
[2017-12-07] MEDS: cefTRIAXone(*) 1 GM in NS 0.9% 50 ML* 50 ML IVPB SCH (10:17)
[2017-12-07 10:32] LABS: Urine Appearance Cloudy; Urine Blood 3+ (Negative); Urine Color Yellow; Urine Ketones Trace (Negative); Urine Protein Negative (Negative); Urine Red Blood Cell 3+(>10/hpf) (Absent); Urine Urobilinogen Negative (Negative); Urine White Blood Cell 3+(>20/hpf) (Absent)
[2017-12-07] MEDS: Hydrocortisone TAB* 10 MG PO SCH (14:53)
[2017-12-07] MEDS: Aspirin EC TAB* 81 MG TAB.EC PO SCH (14:53)
[2017-12-07] MEDS: Citalopram TAB* 10 MG PO SCH (14:53)
[2017-12-07] MEDS: Fludrocortisone Acetate TAB* 0.1 MG PO SCH (14:53)
[2017-12-07] MEDS ORDERED: Dextrose 50% Syringe 50 ML* 25 GM/50 ML SYRINGE IV PUSH PRN (15:56)
[2017-12-07] MEDS ORDERED: Insulin GLARGINE(*) 1 UNITS UNIT SUBCUT SCH (16:00)
[2017-12-07] MEDS: CMCS Pravastatin (NF) 20 MG TAB PO SCH (16:11)
[2017-12-07] MEDS: KCL 20 MEQ/100 ML IVPREMIX* 20 MEQ/100 ML BAG IV SCH ×2 (16:17→18:27)
[2017-12-07] MEDS ORDERED: Insulin LISPRO* 1 UNITS UNIT SUBCUT SCH (20:00)
[2017-12-07] MEDS ORDERED: Insulin GLARGINE(*) 1 UNITS UNIT SUBCUT ONE (21:29)
[2017-12-08] MEDS: Insulin LISPRO* 1 UNITS UNIT SUBCUT SCH ×6 (00:19→21:51)
[2017-12-08 05:31] LABS: Hematocrit 36 % (35-47); Hemoglobin 12.5 g/dl (12.0-16.0); Mean Corpuscular HGB Conc 34 g/dl (31-36); Mean Corpuscular Hemoglobin 32 pg (27-31); Mean Corpuscular Volume 92 fL (80-97); Mean Platelet Volume 8.1 um3 (7.4-10.4); Platelet Count 140 10^3/ul (150-450); Red Blood Count 3.97 10^6/ul (4.00-5.40); Red Cell Distribution Width 13 % (10.5-15); White Blood Count 3.9 10^3/ul (3.5-10.8)
[2017-12-08 05:46] LABS: EGFR Non-African American 82.5 (>60)
[2017-12-08] MEDS: Levothyroxine TAB* 88 MCG TAB PO SCH (05:49)
[2017-12-08] MEDS: Heparin VIAL(*) 5000 UNITS/ML VIAL (FIVE THOUSAND) SUBCUT SCH ×3 (06:07→21:28)
[2017-12-08] MEDS: Pantoprazole IV* 40 MG IV SCH (08:23)
[2017-12-08] MEDS: Citalopram TAB* 10 MG PO SCH (08:27)
[2017-12-08] MEDS: Aspirin EC TAB* 81 MG TAB.EC PO SCH (08:27)
[2017-12-08] MEDS: Fludrocortisone Acetate TAB* 0.1 MG PO SCH (08:28)
[2017-12-08] MEDS: Hydrocortisone TAB* 10 MG PO SCH (08:28)
[2017-12-08] MEDS: KCL 20 MEQ/100 ML IVPREMIX* 20 MEQ/100 ML BAG IV SCH ×3 (09:33→13:54)
[2017-12-08] MEDS: cefTRIAXone(*) 1 GM in NS 0.9% 50 ML* 50 ML IVPB SCH (09:34)
--- NOTE | 2017-12-08 10:02 | PN ---
Progress Note - Progress Note Date of Service: 12/08/17 Note: Progress Note - Critical Care 24 hour events: -off insulin infusion; on lantus sq now; remains confused, doesnt respond to questions, not well alert -tmax 100.1 overnight -on LR infusion Tele: sinus Vitals: Vital Signs Temp 100 F 12/08/17 07:29 Pulse 91 12/08/17 09:00 Resp 23 12/08/17 09:00 BP 137/65 12/08/17 09:00 Pulse Ox 96 12/08/17 09:00 Intake & Output 12/07/17 12/08/17 12/08/17 18:59 06:59 18:59 Intake Total 1574 895 Output Total 1065 1393 358 Balance 509 -498 -358 Weight 80.3 kg Intake: IV Fluids 1402 677 D5W 1/2 NS 20 meq KCL 1402 LR 677 IVPB 148 218 NS (0.9%) 148 Potassium 20meq 218 Medicated IV 24 insulin 24 Oral 0 Output: Calderon 1065 1393 358 O2/Vent: RA Infusions: LR Current Medications: Aspirin (Aspirin Ec Tab*) 81 mg PO DAILY [facility] Last Admin: 12/08/17 08:27 Dose: Not Given Citalopram Hydrobromide (Celexa Tab*) 10 mg PO DAILY [facility] Last Admin: 12/08/17 08:27 Dose: Not Given Dextrose (D50w Syringe 50 Ml*) 12.5 gm IV PUSH .FOR FS < 60 - SS PRN PRN Reason: FS < 60 Fludrocortisone Acetate (Florinef Tab*) 0.05 mg PO DAILY [facility] Last Admin: 12/08/17 08:28 Dose: Not Given Heparin Sodium (Porcine) (Heparin Vial(*)) 5,000 units SUBCUT Q8HR [facility] Last Admin: 12/08/17 06:07 Dose: 5,000 units Hydrocortisone (Cortef Tab*) 10 mg PO DAILY [facility] Last Admin: 12/08/17 08:28 Dose: Not Given Ceftriaxone Sodium 1 gm/ (Sodium Chloride) 50 mls @ 200 mls/hr IVPB Q24H [facility] Last Admin: 12/08/17 09:34 Dose: 200 mls/hr Lactated Ringer's (Lactated Ringers 1000 Ml Bag*) 1,000 mls @ 50 mls/hr IV PER RATE [facility] Last Admin: 12/07/17 16:12 Dose: 50 mls/hr Potassium Chloride (Potassium Chloride 20 Meq/100 Ml Ivpremix*) 20 meq in 100 mls @ 50 mls/hr IV Q2H [facility] Stop: 12/08/17 14:59 Last Admin: 12/08/17 09:33 Dose: 50 mls/hr Insulin Glargine (Lantus(*)) 20 units SUBCUT Q24H [facility] Insulin Human Lispro (Humalog*) 0 units SUBCUT Q4H [facility]; Protocol Last Admin: 12/08/17 08:23 Dose: 2 units Levothyroxine Sodium (Synthroid Tab*) 88 mcg PO 0600 [facility] Last Admin: 12/08/17 05:49 Dose: Not Given Pantoprazole Sodium (Protonix Iv*) 40 mg IV DAILY [facility] Last Admin: 12/08/17 08:23 Dose: 40 mg Pravastatin Sodium (Pravachol (Nf)) 10 mg PO 1700 [facility] Last Admin: 12/07/17 16:11 Dose: Not Given Physical Exam: General: awake, no distress, no diaphoresis; confused, not fully alert Head: normocephalic, atraumatic HEENT: no pallor, no icterus, moist mucous membranes Neck: soft, supple, no jvd, no stridor CVS: not tachy, regular, no murmur Resp: bilateral air entry, no rhales, no wheeze, no rhonchi, no acc muscle use Abdomen: soft, nontender, nondistended, bowel sounds present Ext: pulses+, warm, no edema Skin: intact, no breakdown, no dryness Neuro: awake, not alert, confused, moving all extremities, no gross focal deficit; doesnt follow commands Labs: Laboratory Results - last 24 hr 12/07/17 12/07/17 12/07/17 07:52 09:24 09:50 WBC RBC Hgb Hct MCV MCH MCHC RDW Plt Count MPV Sodium Potassium Chloride Carbon Dioxide Anion Gap BUN Creatinine Est GFR ( Amer) Est GFR (Non-Af Amer) BUN/Creatinine Ratio Glucose POC Glucose (mg/dL) 186 H 168 H Calcium Urine Color Yellow Urine Appearance Cloudy Urine pH 5.0 Ur Specific [place] 1.010 Urine Protein Negative Urine Ketones Trace A Urine Blood 3+ A Urine Nitrate Negative Urine Bilirubin Negative Urine Urobilinogen Negative Ur Leukocyte Esterase 2+ A Urine WBC (Auto) 3+(>20/hpf) A Urine RBC (Auto) 3+(>10/hpf) A Urine Bacteria 1+ A Urine Glucose Negative 12/07/17 12/07/17 12/07/17 10:29 11:24 12:18 WBC RBC Hgb Hct MCV MCH MCHC RDW Plt Count MPV Sodium Potassium Chloride Carbon Dioxide Anion Gap BUN Creatinine Est GFR ( Amer) Est GFR (Non-Af Amer) BUN/Creatinine Ratio Glucose POC Glucose (mg/dL) 154 H 149 H 145 H Calcium Urine Color Urine Appearance Urine pH Ur Specific [place] Urine Protein Urine Ketones Urine Blood Urine Nitrate Urine Bilirubin Urine Urobilinogen Ur Leukocyte Esterase Urine WBC (Auto) Urine RBC (Auto) Urine Bacteria Urine Glucose 12/07/17 12/07/17 12/07/17 13:27 13:30 14:17 WBC RBC Hgb Hct MCV MCH MCHC RDW Plt Count MPV Sodium 133 L Potassium 3.7 Chloride 106 Carbon Dioxide 21 L Anion Gap 6 BUN 25 H Creatinine 1.14 H Est GFR ( Amer) 56.9 Est GFR (Non-Af Amer) 47.0 BUN/Creatinine Ratio 21.9 H Glucose 128 H POC Glucose (mg/dL) 132 H 90 Calcium 7.7 L Urine Color Urine Appearance Urine pH Ur Specific [place] Urine Protein Urine Ketones Urine Blood Urine Nitrate Urine Bilirubin Urine Urobilinogen Ur Leukocyte Esterase Urine WBC (Auto) Urine RBC (Auto) Urine Bacteria Urine Glucose 12/07/17 12/07/17 12/07/17 15:24 16:35 17:37 WBC RBC Hgb Hct MCV MCH MCHC RDW Plt Count MPV Sodium Potassium Chloride Carbon Dioxide Anion Gap BUN Creatinine Est GFR ( Amer) Est GFR (Non-Af Amer) BUN/Creatinine Ratio Glucose POC Glucose (mg/dL) 87 150 H 155 H Calcium Urine Color Urine Appearance Urine pH Ur Specific [place] Urine Protein Urine Ketones Urine Blood Urine Nitrate Urine Bilirubin Urine Urobilinogen Ur Leukocyte Esterase Urine WBC (Auto) Urine RBC (Auto) Urine Bacteria Urine Glucose 12/07/17 12/07/17 12/08/17 18:50 20:06 00:15 WBC RBC Hgb Hct MCV MCH MCHC RDW Plt Count MPV Sodium Potassium Chloride Carbon Dioxide Anion Gap BUN Creatinine Est GFR ( Amer) Est GFR (Non-Af Amer) BUN/Creatinine Ratio Glucose POC Glucose (mg/dL) 226 H 290 H 243 H Calcium Urine Color Urine Appearance Urine pH Ur Specific [place] Urine Protein Urine Ketones Urine Blood Urine Nitrate Urine Bilirubin Urine Urobilinogen Ur Leukocyte Esterase Urine WBC (Auto) Urine RBC (Auto) Urine Bacteria Urine Glucose 12/08/17 12/08/17 12/08/17 04:01 05:10 05:10 WBC 3.9 RBC 3.97 L Hgb 12.5 Hct 36 MCV 92 MCH 32 H MCHC 34 RDW 13 Plt Count 140 L MPV 8.1 Sodium 134 L Potassium 3.2 L Chloride 109 Carbon Dioxide 18 L Anion Gap 7 BUN 12 Creatinine 0.70 Est GFR ( Amer) 99.8 Est GFR (Non-Af Amer) 82.5 BUN/Creatinine Ratio 17.1 Glucose 157 H POC Glucose (mg/dL) 175 H Calcium 7.1 L Urine Color Urine Appearance Urine pH Ur Specific [place] Urine Protein Urine Ketones Urine Blood Urine Nitrate Urine Bilirubin Urine Urobilinogen Ur Leukocyte Esterase Urine WBC (Auto) Urine RBC (Auto) Urine Bacteria Urine Glucose 12/08/17 07:43 WBC RBC Hgb Hct MCV MCH MCHC RDW Plt Count MPV Sodium Potassium Chloride Carbon Dioxide Anion Gap BUN Creatinine Est GFR ( Amer) Est GFR (Non-Af Amer) BUN/Creatinine Ratio Glucose POC Glucose (mg/dL) 155 H Calcium Urine Color Urine Appearance Urine pH Ur Specific [place] Urine Protein Urine Ketones Urine Blood Urine Nitrate Urine Bilirubin Urine Urobilinogen Ur Leukocyte Esterase Urine WBC (Auto) Urine RBC (Auto) Urine Bacteria Urine Glucose Imaging: cxr 12/[address] brain 12/[address] abd/pelvis 12/06 - hepatosis, biliary sludge+ Assessment: 72y F pmhx of DM, addisons disease, hypothyroidism; brought in by EMS, neighbor called EMS after patient was more confused in the past day, intermittently lethargic. History is she recently lost her . On insulin pump supposedly but may have stopped working. Limited history due to delirium and confused state. Found to be in DKA. -DKA, resolved -metabolic encephalopathy -REZA -hyperkalemia -abdominal tenderness -r/o depression Plan: Neuro- confused still; DKA resolved, tmax 100.1. Repeat CT brain today. restart steroids and synthroid IV to replete, unclear how long she may have been off of them. delirium prec. avoid bdz. CVS- sinus rhythm; BP stable. cont LR. Resp- on RA, no distress. ID- tmax 100.1, wbc 3.9. blood cx neg, urinalysis minimal bacteria+. empiric abx for possible UTI, ceftriaxone IV 1gm daily (day#2) GI- not sig tenderness, nonspecific. CT a/p negative. NPO. PPI daily. aspiration prec. Renal- REZA improved. cont LR. K replete with IV KCL. making urine. Mild metabolic acidosis+. will monitor. Heme- hg stable, plt okay. WBC 3.9 now. Endo- DKA with gap resolved, cont lantus 20u daily, sliding scale wtih q4h. not able to eat yet. cont synthroid but change to IV 44mcg daily while NPO. cont hydrocortisone for addisons but change to IV 50mg daily while NPO. Musculsk- bedrest, pressure ulcer proph Wounds- none Nutrition- NPO DVT prophylaxis: scds, heparin sq GI prophylaxis: ppi Central Line: right fem tlc 7/12 Arterial Line: no Calderon Cathetor: yes Disposition: ICU Code Status: full code Total Critical Care time is 30 minutes, excluding procedures/teaching Joaquin Calabrese MD [facility] (Electronically Signed)
[2017-12-08] MEDS ORDERED: NS 0.9% 500 ML* 500 ML IV ONE ×2 (11:26→13:26)
[2017-12-08] MEDS: Hydrocortisone INJ* 100 MG VIAL IV SCH (11:39)
--- NOTE | 2017-12-08 13:18 | RAD ---
INDICATION: Encephalopathy COMPARISON: Most recent CT of the brain is dated December 06, 2017 TECHNIQUE: Contiguous axial sections of the brain were obtained from the skull base to the vertex without contrast. FINDINGS: Image quality is limited by patient motion artifact. The ventricles, cisterns and sulci are within normal limits. The castaneda-white matter differentiation is adequately maintained and there is no sulcal effacement. No significant focal abnormality or mass effect is present. There is no evidence for intracranial hemorrhage. No significant focal osseous abnormality is present. The visualized portion of the paranasal sinuses appear clear. The mastoid air cells are well aerated bilaterally. IMPRESSION: No acute abnormalities are identified on this brain CT that is of limited imaging value due to motion artifact.
--- NOTE | 2017-12-08 13:19 | RAD ---
INDICATION: Clinical concern for aspiration COMPARISON: Chest x-ray dated December 06, 2017 TECHNIQUE: Single AP portable view of the chest was obtained. FINDINGS: Image quality is compromised due to the relative inferiority of a portable chest x-ray. The heart and mediastinum exhibit normal size and contour. The lungs are grossly clear. There is no evidence of a large pleural effusion. Visualized bones are normal for the patient's age. IMPRESSION: No radiographic evidence for acute cardiopulmonary abnormality on this portable chest x-ray.
[2017-12-08] MEDS ORDERED: Vancomycin per Pharmacy* NOTE FOLLOW UP SCH (16:00)
[2017-12-08] MEDS ORDERED: ZOSYN 3.375 GM x ONE DOSE over 30 miuntes IVPB ×2 (16:00)
[2017-12-08] MEDS ORDERED: Vancomycin(*) 1,500 MG in NS 0.9% 250 ML* 250 ML IVPB ONE (16:30)
[2017-12-08] MEDS: Insulin GLARGINE(*) 1 UNITS UNIT SUBCUT SCH (16:43)
[2017-12-08] MEDS: CMCS Pravastatin (NF) 20 MG TAB PO SCH (16:44)
[2017-12-08] MEDS: Piperacillin/Tazobac ADVAN(*) 3.375 GM in NS 0.9% 100 ML* 100 ML IVPB SCH (21:28)
[2017-12-08 21:35] LABS: EGFR Non-African American 62.5 (>60)
[2017-12-08] MEDS: Vancomycin(*) 1,000 MG in NS 0.9% 250 ML* 250 ML IVPB SCH (23:26)
[2017-12-09] MEDS: Insulin LISPRO* 1 UNITS UNIT SUBCUT SCH ×6 (00:02→21:15)
[2017-12-09] MEDS: Piperacillin/Tazobac ADVAN(*) 3.375 GM in NS 0.9% 100 ML* 100 ML IVPB SCH ×3 (04:17→21:15)
[2017-12-09 06:08] LABS: Hematocrit 32 % (35-47); Hemoglobin 10.9 g/dl (12.0-16.0); Mean Corpuscular HGB Conc 35 g/dl (31-36); Mean Corpuscular Hemoglobin 32 pg (27-31); Mean Corpuscular Volume 91 fL (80-97); Mean Platelet Volume 7.9 um3 (7.4-10.4); Platelet Count 124 10^3/ul (150-450); Red Blood Count 3.47 10^6/ul (4.00-5.40); Red Cell Distribution Width 13 % (10.5-15); White Blood Count 3.7 10^3/ul (3.5-10.8)
[2017-12-09 06:21] LABS: EGFR Non-African American 67.8 (>60)
[2017-12-09] MEDS: Levothyroxine INJ* 100 MCG/5 ML VIAL IV SCH (08:05)
[2017-12-09] MEDS: Hydrocortisone INJ* 100 MG VIAL IV SCH (08:05)
[2017-12-09] MEDS: Heparin VIAL(*) 5000 UNITS/ML VIAL (FIVE THOUSAND) SUBCUT SCH ×3 (08:05→22:19)
[2017-12-09] MEDS: Pantoprazole IV* 40 MG IV SCH (08:06)
[2017-12-09] MEDS: Vancomycin(*) 1,000 MG in NS 0.9% 250 ML* 250 ML IVPB SCH ×2 (08:06→17:33)
--- NOTE | 2017-12-09 10:46 | PN ---
Progress Note - Progress Note Date of Service: 12/09/17 Note: Progress Note - Critical Care 24 hour events: -tmax 101 yesterday; abx changed to more broad spectrum; BP stable, making urine ; on LR infusion -today more awake, more alert but still confused -not eating yet Tele: sinus Vitals: Vital Signs Temp 98.7 F 12/09/17 07:16 Pulse 87 12/09/17 08:00 Resp 27 12/09/17 08:00 BP 130/54 12/09/17 07:01 Pulse Ox 97 12/09/17 08:00 Intake & Output 12/08/17 12/09/17 12/09/17 18:59 06:59 18:59 Intake Total 1908 2802 Output Total 1703 350 250 Balance 205 2452 -250 Weight 80.5 kg Intake: IV Fluids 1908 2202 ABX - CEFTRIAXONE 55 LR 438 1131 NS (0.9%) 1110 405 Potassium 20meq 305 kvo 666 Oral 0 Calderon [place] Amount 600 Output: Calderon 1703 350 250 O2/Vent: RA Infusions: LR 100cc/hr Current Medications: Aspirin (Aspirin Ec Tab*) 81 mg PO DAILY [facility] Last Admin: 12/08/17 08:27 Dose: Not Given Citalopram Hydrobromide (Celexa Tab*) 10 mg PO DAILY [facility] Last Admin: 12/08/17 08:27 Dose: Not Given Dextrose (D50w Syringe 50 Ml*) 12.5 gm IV PUSH .FOR FS < 60 - SS PRN PRN Reason: FS < 60 Fludrocortisone Acetate (Florinef Tab*) 0.05 mg PO DAILY [facility] Last Admin: 12/08/17 08:28 Dose: Not Given Heparin Sodium (Porcine) (Heparin Vial(*)) 5,000 units SUBCUT Q8HR [facility] Last Admin: 12/09/17 08:05 Dose: 5,000 units Hydrocortisone (Cortef Tab*) 10 mg PO DAILY [facility] Last Admin: 12/08/17 08:28 Dose: Not Given Hydrocortisone Sodium Succinate (Solu-Cortef*) 50 mg IV DAILY [facility] Last Admin: 12/09/17 08:05 Dose: 50 mg Lactated Ringer's (Lactated Ringers 1000 Ml Bag*) 1,000 mls @ 100 mls/hr IV PER RATE [facility] Last Admin: 12/09/17 03:19 Dose: 100 mls/hr Piperacillin Sod/Tazobactam (Sod 3.375 gm/ Sodium Chloride) 100 mls @ 25 mls/ hr IVPB Q8H [facility] Last Admin: 12/09/17 04:17 Dose: 25 mls/hr Vancomycin HCl 1,000 mg/ (Sodium Chloride) 250 mls @ 166.667 mls/hr IVPB Q8H [facility] Last Admin: 12/09/17 08:06 Dose: 166.667 mls/hr Insulin Glargine (Lantus(*)) 20 units SUBCUT Q24H [facility] Last Admin: 12/08/17 16:43 Dose: 20 units Insulin Human Lispro (Humalog*) 0 units SUBCUT Q4H [facility]; Protocol Last Admin: 12/09/17 08:42 Dose: 1 units Levothyroxine Sodium (Synthroid Inj*) 44 mcg IV 0600 [facility] Last Admin: 12/09/17 08:05 Dose: 44 mcg Pantoprazole Sodium (Protonix Iv*) 40 mg IV DAILY [facility] Last Admin: 12/09/17 08:06 Dose: 40 mg Pharmacy Consult (Vancomycin Per Pharmacy*) 1 note FOLLOW UP .VANC PER PHARMACY [facility] Pharmacy Profile Note (Vancomycin Trough Check) 1 note FOLLOW UP ONCE ONE Stop: 12/09/17 15:31 Pravastatin Sodium (Pravachol (Nf)) 10 mg PO 1700 [facility] Last Admin: 12/08/17 16:44 Dose: Not Given Physical Exam: General: awake, no distress, no diaphoresis; confused, more alert Head: normocephalic, atraumatic HEENT: no pallor, no icterus, moist mucous membranes Neck: soft, supple, no jvd, no stridor CVS: normal rate, regular, no murmur Resp: bilateral air entry, no rhales, no wheeze, no rhonchi, no acc muscle use Abdomen: soft, nontender, nondistended, bowel sounds present Ext: pulses+, warm, no edema Skin: intact, no breakdown, no dryness Neuro: awake, more alert today, confused, moving all extremities, no gross focal deficit; can answer questions, oriented x2 Labs: Laboratory Results - last 24 hr 12/08/17 12/08/17 12/08/17 11:54 14:00 14:00 WBC RBC Hgb Hct MCV MCH MCHC RDW Plt Count MPV Sodium Potassium Chloride Carbon Dioxide Anion Gap BUN Creatinine Est GFR ( Amer) Est GFR (Non-Af Amer) BUN/Creatinine Ratio Glucose POC Glucose (mg/dL) 170 H Lactic Acid 0.8 Calcium Ammonia Procalcitonin 4.1 H 12/08/17 12/08/17 12/08/17 15:59 21:05 21:05 WBC RBC Hgb Hct MCV MCH MCHC RDW Plt Count MPV Sodium 134 L Potassium 4.5 Chloride 105 Carbon Dioxide 19 L Anion Gap 10 BUN 9 Creatinine 0.89 Est GFR ( Amer) 75.7 Est GFR (Non-Af Amer) 62.5 BUN/Creatinine Ratio 10.1 Glucose 251 H POC Glucose (mg/dL) 185 H Lactic Acid Calcium 8.1 L Ammonia 18 Procalcitonin 12/08/17 12/08/17 12/09/17 21:05 23:56 04:23 WBC RBC Hgb Hct MCV MCH MCHC RDW Plt Count MPV Sodium Potassium Chloride Carbon Dioxide Anion Gap BUN Creatinine Est GFR ( Amer) Est GFR (Non-Af Amer) BUN/Creatinine Ratio Glucose POC Glucose (mg/dL) 260 H 211 H Lactic Acid 0.7 Calcium Ammonia Procalcitonin 12/09/17 12/09/17 12/09/17 05:50 05:50 08:22 WBC 3.7 RBC 3.47 L Hgb 10.9 L Hct 32 L MCV 91 MCH 32 H MCHC 35 RDW 13 Plt Count 124 L MPV 7.9 Sodium 136 Potassium 3.6 Chloride 109 Carbon Dioxide 21 L Anion Gap 6 BUN 10 Creatinine 0.83 Est GFR ( Amer) 82.0 Est GFR (Non-Af Amer) 67.8 BUN/Creatinine Ratio 12.0 Glucose 182 H POC Glucose (mg/dL) 141 H Lactic Acid Calcium 7.8 L Ammonia Procalcitonin Imaging: cxr 12/[address] brain 12/[address] abd/pelvis 12/06 - hepatosis, biliary sludge+ cxr 12/08 - no infiltrate ct brain 12/08 - no acute process Assessment: 72y F pmhx of DM, addisons disease, hypothyroidism; brought in by EMS, neighbor called EMS after patient was more confused in the past day, intermittently lethargic. History is she recently lost her . On insulin pump supposedly but may have stopped working. Limited history due to delirium and confused state. Found to be in DKA. -DKA, resolved -metabolic encephalopathy -REZA -hyperkalemia -abdominal tenderness -r/o depression Plan: Neuro- confused still but more awake, slightly more alert, can answer some questions; improvement from yesterday; possible metabolic dysfunction now given fevers yesterday. delirium prec. avoid bdz. CVS- sinus rhythm; BP stable. cont LR 100cc/hr while NPO, once able can dec rate Resp- on RA, no distress. cxr 12/08 no infitlrate. ID- tmax 101. wbc <4. Urine 1+ bacteria only; CXR clear. culture neg so far. Mental status better today. ?UTI as cause. Cont empiric vanco/zosyn (day#3) GI- not sig tenderness, nonspecific. CT a/p negative. NPO, trial PO today. PPI daily. aspiration prec. Renal- REZA improved. cont LR 100cc/hr. K replete with IV KCL. making urine. metabolic acidosis improved. Heme- hg stable, plt okay. WBC 3.7 Endo- DKA with gap resolved, cont lantus 20u daily, last BG upper 100s. still NPO. sliding scale q4h while not taking in PO; cont synthroid IV 44mcg daily while NPO. cont hydrocortisone for addisons IV 50mg daily while NPO. Musculsk- bedrest with oob to chair today, pressure ulcer proph Wounds- none Nutrition- NPO, trial PO diet DVT prophylaxis: scds, heparin sq GI prophylaxis: ppi Central Line: right fem tlc 12/06 Arterial Line: no Calderon Cathetor: yes Disposition: stable for transfer to monitored bed; discussed with Dr Calderon for transfer Code Status: full code Joaquin Calabrese MD [employer] (Electronically Signed)
[2017-12-09] MEDS: Citalopram TAB* 10 MG PO SCH (10:59)
[2017-12-09] MEDS: Hydrocortisone TAB* 10 MG PO SCH (10:59)
[2017-12-09] MEDS: Fludrocortisone Acetate TAB* 0.1 MG PO SCH (10:59)
[2017-12-09] MEDS: Aspirin EC TAB* 81 MG TAB.EC PO SCH (10:59)
[2017-12-09] MEDS: KCL 20 MEQ/100 ML IVPREMIX* 20 MEQ/100 ML BAG IV SCH ×2 (11:31→14:04)
[2017-12-09] MEDS ORDERED: Vancomycin Trough Check NOTE FOLLOW UP ONE (15:30)
[2017-12-09] MEDS: Insulin GLARGINE(*) 1 UNITS UNIT SUBCUT SCH (17:31)
[2017-12-09] MEDS: Vancomycin(*) 750 MG in NS 0.9% 250 ML* 250 ML IVPB SCH (17:41)
[2017-12-09] MEDS: CMCS Pravastatin (NF) 20 MG TAB PO SCH (17:53)
[2017-12-10] MEDS: Insulin LISPRO* 1 UNITS UNIT SUBCUT SCH ×7 (00:32→23:59)
[2017-12-10] MEDS: Vancomycin(*) 750 MG in NS 0.9% 250 ML* 250 ML IVPB SCH ×2 (01:35→09:17)
[2017-12-10] MEDS: Piperacillin/Tazobac ADVAN(*) 3.375 GM in NS 0.9% 100 ML* 100 ML IVPB SCH (03:54)
[2017-12-10] MEDS: Levothyroxine INJ* 100 MCG/5 ML VIAL IV SCH (05:07)
[2017-12-10] MEDS: Heparin VIAL(*) 5000 UNITS/ML VIAL (FIVE THOUSAND) SUBCUT SCH ×3 (05:07→21:40)
[2017-12-10 07:13] LABS: Hematocrit 32 % (35-47); Hemoglobin 10.7 g/dl (12.0-16.0); Mean Corpuscular HGB Conc 34 g/dl (31-36); Mean Corpuscular Hemoglobin 31 pg (27-31); Mean Corpuscular Volume 93 fL (80-97); Mean Platelet Volume 8.7 um3 (7.4-10.4); Platelet Count 104 10^3/ul (150-450); Red Blood Count 3.42 10^6/ul (4.00-5.40); Red Cell Distribution Width 14 % (10.5-15); White Blood Count 4.4 10^3/ul (3.5-10.8)
[2017-12-10 07:24] LABS: EGFR Non-African American 71.7 (>60)
[2017-12-10] MEDS: Fludrocortisone Acetate TAB* 0.1 MG PO SCH (09:16)
[2017-12-10] MEDS: Aspirin EC TAB* 81 MG TAB.EC PO SCH (09:16)
[2017-12-10] MEDS: Citalopram TAB* 10 MG PO SCH (09:16)
[2017-12-10] MEDS: Pantoprazole IV* 40 MG IV SCH (09:17)
[2017-12-10] MEDS: Hydrocortisone INJ* 100 MG VIAL IV SCH (09:17)
[2017-12-10] MEDS: Hydrocortisone TAB* 10 MG PO SCH (09:41)
[2017-12-10] MEDS: CMCS Pravastatin (NF) 20 MG TAB PO SCH (18:01)
[2017-12-10] MEDS: Insulin GLARGINE(*) 1 UNITS UNIT SUBCUT SCH (18:02)
[2017-12-11] MEDS: Insulin LISPRO* 1 UNITS UNIT SUBCUT SCH ×6 (04:09→23:45)
[2017-12-11] MEDS: Heparin VIAL(*) 5000 UNITS/ML VIAL (FIVE THOUSAND) SUBCUT SCH ×3 (05:46→21:31)
[2017-12-11] MEDS: Levothyroxine INJ* 100 MCG/5 ML VIAL IV SCH (05:47)
[2017-12-11 06:38] LABS: Hematocrit 31 % (35-47); Hemoglobin 10.7 g/dl (12.0-16.0); Mean Corpuscular HGB Conc 35 g/dl (31-36); Mean Corpuscular Hemoglobin 32 pg (27-31); Mean Corpuscular Volume 91 fL (80-97); Mean Platelet Volume 8.2 um3 (7.4-10.4); Platelet Count 135 10^3/ul (150-450); Red Blood Count 3.39 10^6/ul (4.00-5.40); Red Cell Distribution Width 13 % (10.5-15); White Blood Count 5.4 10^3/ul (3.5-10.8)
[2017-12-11 06:56] LABS: EGFR Non-African American 77.4 (>60)
[2017-12-11] MEDS: Hydrocortisone TAB* 10 MG PO SCH ×2 (08:49→17:26)
[2017-12-11] MEDS: Fludrocortisone Acetate TAB* 0.1 MG PO SCH (08:49)
[2017-12-11] MEDS: Citalopram TAB* 10 MG PO SCH (08:51)
[2017-12-11] MEDS: Aspirin EC TAB* 81 MG TAB.EC PO SCH (08:51)
[2017-12-11] MEDS ORDERED: Vancomycin Trough Check NOTE FOLLOW UP ONE (09:30)
[2017-12-11] MEDS: Hydrocortisone INJ* 100 MG VIAL IV SCH (11:17)
[2017-12-11] MEDS: Pantoprazole IV* 40 MG IV SCH (11:17)
[2017-12-11] MEDS: Magnesium Oxide TAB* 400 MG PO SCH ×2 (12:08→20:23)
[2017-12-11] MEDS: Potassium Chlor TAB* 20 MEQ TAB.ER PO SCH ×2 (12:09→17:22)
[2017-12-11] MEDS: Potassium & Sodium Phos 250MG* = 1 PACKET PO SCH ×2 (13:46→20:23)
[2017-12-11] MEDS: CMCS Pravastatin (NF) 20 MG TAB PO SCH (17:20)
[2017-12-11] MEDS: Insulin GLARGINE(*) 1 UNITS UNIT SUBCUT SCH (17:23)
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
[2017-12-12] MEDS: Insulin LISPRO* 1 UNITS UNIT SUBCUT SCH ×6 (04:07→23:53)
[2017-12-12] MEDS: Heparin VIAL(*) 5000 UNITS/ML VIAL (FIVE THOUSAND) SUBCUT SCH ×3 (05:49→21:28)
[2017-12-12] MEDS: Levothyroxine TAB* 88 MCG TAB PO SCH (05:49)
[2017-12-12 06:09] LABS: Hematocrit 32 % (35-47); Hemoglobin 10.9 g/dl (12.0-16.0); Mean Corpuscular HGB Conc 34 g/dl (31-36); Mean Corpuscular Hemoglobin 31 pg (27-31); Mean Corpuscular Volume 92 fL (80-97); Mean Platelet Volume 8.3 um3 (7.4-10.4); Platelet Count 173 10^3/ul (150-450); Red Blood Count 3.49 10^6/ul (4.00-5.40); Red Cell Distribution Width 13 % (10.5-15); White Blood Count 4.3 10^3/ul (3.5-10.8)
[2017-12-12 06:25] LABS: EGFR Non-African American 83.9 (>60)
[2017-12-12] MEDS: Hydrocortisone TAB* 10 MG PO SCH ×2 (08:46→16:42)
[2017-12-12] MEDS: Fludrocortisone Acetate TAB* 0.1 MG PO SCH (08:46)
[2017-12-12] MEDS: Potassium & Sodium Phos 250MG* = 1 PACKET PO SCH ×3 (08:46→20:50)
[2017-12-12] MEDS: Citalopram TAB* 10 MG PO SCH (08:47)
[2017-12-12] MEDS: Aspirin EC TAB* 81 MG TAB.EC PO SCH (08:47)
[2017-12-12] MEDS: Magnesium Oxide TAB* 400 MG PO SCH ×2 (08:47→20:50)
[2017-12-12] MEDS: Insulin GLARGINE(*) 1 UNITS UNIT SUBCUT SCH (16:42)
[2017-12-12] MEDS: CMCS Pravastatin (NF) 20 MG TAB PO SCH (16:44)
[2017-12-13] MEDS: Insulin LISPRO* 1 UNITS UNIT SUBCUT SCH ×2 (03:58→07:53)
[2017-12-13] MEDS: Levothyroxine TAB* 88 MCG TAB PO SCH (05:55)
[2017-12-13] MEDS: Heparin VIAL(*) 5000 UNITS/ML VIAL (FIVE THOUSAND) SUBCUT SCH (05:55)
[2017-12-13 07:30] LABS: EGFR Non-African American 81.2 (>60)
[2017-12-13 08:30] VITALS: BP 140/51
[2017-12-13] MEDS: Aspirin EC TAB* 81 MG TAB.EC PO SCH (08:48)
[2017-12-13] MEDS: Fludrocortisone Acetate TAB* 0.1 MG PO SCH (08:48)
[2017-12-13] MEDS: Citalopram TAB* 10 MG PO SCH (08:48)
[2017-12-13] MEDS: Magnesium Oxide TAB* 400 MG PO SCH (08:48)
[2017-12-13] MEDS: Hydrocortisone TAB* 10 MG PO SCH (08:48)
[2017-12-13] MEDS: Potassium & Sodium Phos 250MG* = 1 PACKET PO SCH (08:50)
== END 2017-12-13 11:40 | disposition home health service (06) | DRG 637 ==
LOC: ED 15:10 → ICU 21:06 → MED 12-09 16:23
PROVIDERS: ADMIT Internal Medicine Critical Care Medicine; ATTEND Internal Medicine Geriatric Medicine
PROC: 06HM33Z Insertion of Infusion Device into Right Femoral Vein, Percutaneous Approach (ICD-10-PCS; principal; 2017-12-06)
DX: E11.10 Type 2 diabetes mellitus with ketoacidosis without coma (principal); G93.41 Metabolic encephalopathy; E27.1 Primary adrenocortical insufficiency; N17.9 Acute kidney failure, unspecified; E11.65 Type 2 diabetes mellitus with hyperglycemia; E03.9 Hypothyroidism, unspecified; E87.5 Hyperkalemia; R10.819 Abdominal tenderness, unspecified site; R41.0 Disorientation, unspecified; R00.0 Tachycardia, unspecified; F32.9 Major depressive disorder, single episode, unspecified; F41.9 Anxiety disorder, unspecified; R41.3 Other amnesia; R41.81 Age-related cognitive decline; K76.89 Other specified diseases of liver; K83.8 Other specified diseases of biliary tract; Z96.41 Presence of insulin pump (external) (internal); Z88.1 Allergy status to other antibiotic agents; Z88.5 Allergy status to narcotic agent; Z88.8 Allergy status to other drugs, medicaments and biological substances; Z98.51 Tubal ligation status; Z87.19 Personal history of other diseases of the digestive system; Z83.3 Family history of diabetes mellitus; Z98.42 Cataract extraction status, left eye; Z98.41 Cataract extraction status, right eye
CPT/HCPCS: 36415; 70450; 71045; 74176; 80048; 80053; 80202; 80307; 80320; 80329; 81003; 81015; 82140; 82947; 83605; 83735; 83930; 84100; 84145; 84484; 85025; 85027; 85610; 86140; 87040; 87086; 87641; 93005; 99284; A9270-GY; G0480; G8978-GP-CI; G8978-GP-CM; G8979-GP-CH; G8979-GP-CK; G8987-GO-CL; G8988-GO-CI; J0696; J1644; J1720; J1815; J2543; J3370; J3475; J3480

== ENCOUNTER 2017-12-23 02:45 | Observation (INO) | payer MEDICARE ==
[2017-12-23] MEDS ORDERED: NS 0.9% 1000 ML* 1,000 ML IV ONE (03:06)
[2017-12-23] MEDS ORDERED: Ondansetron ODT TAB* 4 MG SL ONE (03:11)
--- NOTE | 2017-12-23 03:13 | ED ---
HPI Diabetic - HPI Summary HPI Summary: This is bailey Angulo documenting for attending Dr. Harry Miranda MD. The patient is a 72 y/[facility] F [facility]/o feeling nauseous will chills onset four hours ago. She reports that she was asleep on a chair when she woke up a felt extremely nauseated. She has not eaten much today. She denies CP, abd pain, and fever. She has Type 1 DM. In the ambulance, her blood sugar was 411. She was recently admitted to [facility] on 12/06 for similar symptoms. She has hx of Mills's. - History Of Current Complaint Chief Complaint: EDDiabeticProb Hx Obtained From: Patient Onset/Duration: Sudden Onset, Lasting Hours, Still Present Timing: Constant Severity Initially: Moderate Severity Currently: Moderate Character: Alert Aggravating: Nothing Alleviating: Nothing Associated Signs & Symptoms: Negative - abd pain, CP, fever, Nausea Related History: DM I - Allergies/Home Medications Allergies/Adverse Reactions: Allergies Allergy/AdvReac Type Severity Reaction Status Date / Time atorvastatin Allergy Intermediate GI Upset Verified 12/08/17 15:36 rosuvastatin [From Crestor] Allergy See Comment Verified 10/12/17 22:09 simvastatin [From Zocor] Allergy See Comment Verified 10/12/17 22:09 amoxicillin [From Augmentin] AdvReac Intermediate GI Upset Verified 12/08/17 15: 36 clavulanic acid AdvReac Intermediate GI Upset Verified 12/08/17 15:36 [From Augmentin] codeine AdvReac Intermediate Nausea Verified 12/08/17 15:36 levofloxacin [From Levaquin] AdvReac Intermediate GI Upset Verified 12/08/17 15: 36 tramadol AdvReac Intermediate Nausea And Verified 12/08/17 15:36 Vomiting venlafaxine [From Effexor] AdvReac Intermediate GI Upset Verified 12/08/17 15:36 Home Medications: Home Medications Insulin GLARGINE(*) [Lantus(*)] 14 units SUBCUT QPM 12/23/17 [History Confirmed 12/23/17] PMH/Surg Hx/FS Hx/Imm Hx Endocrine/Hematology History: Reports: Hx Diabetes, Hx Thyroid Disease - hypothyroid, Other Endocrine/Hematological Disorders - Mills's disease Denies: Hx Anemia, Hx Unexplained Bleeding Cardiovascular History: Denies: Hx Coronary Artery Disease, Hx Deep Vein Thrombosis, Hx Hypercholesterolemia, Hx Hypotension, Hx Hypertension, Hx Pacemaker/ICD, Hx Peripheral Vascular Disease, Hx Rheumatic Fever, Hx Syncope, Hx Valvular Heart Disease, Other Cardiovascular Problems/Disorders Respiratory History: Denies: Hx Asthma, Hx Chronic Bronchitis, Hx Chronic Obstructive Pulmonary Disease (COPD), Hx Cystic Fibrosis, Hx Lung Cancer, Hx Pleural Effusion, Hx Pneumonia, Hx Pulmonary Edema, Hx Pulmonary Embolism, Hx Seasonal Allergies, Hx Sleep Apnea, Other Respiratory Problems/Disorders GI History: Denies: Hx Jaundice Musculoskeletal History: Denies: Hx Osteoporosis Sensory History: Reports: Hx Cataracts - removed Denies: Hx Contacts or Glasses, Hx Hearing Aid Opthamlomology History: Reports: Hx Cataracts - removed Denies: Hx Contacts or Glasses Neurological History: Denies: Hx Dementia, Hx Developmental Delay, Hx Headaches, Hx Migraine, Hx Seizures, Hx Spinal Cord Injury, Hx Transient Ischemic Attacks (TIA), Other Neuro Impairments/Disorders - Cancer History Hx Chemotherapy: No Hx Radiation Therapy: No - Surgical History Surgery Procedure, Year, and Place: . tubal Hx Anesthesia Reactions: No - Immunization History Date of Tetanus Vaccine: utd Date of Influenza Vaccine: fall 2016 Infectious Disease History: No Infectious Disease History: Denies: Hx Clostridium Difficile, Hx Hepatitis, Hx Human Immunodeficiency Virus (HIV), Hx of Known/Suspected MRSA, Hx Shingles, Hx Tuberculosis, Hx Known/ Suspected VRE, Hx Known/Suspected VRSA, History Other Infectious Disease, Traveled Outside the [place] in Last 30 Days - Family History Known Family History: Positive: Diabetes - Social History Alcohol Use: None Hx Substance Use: No Substance Use Type: Reports: None Hx Tobacco Use: No Smoking Status (MU): Former Smoker Review of Systems Positive: Chills. Negative: Fever Negative: Chest Pain Gastrointestinal: Other - decreased appetite Positive: Nausea. Negative: Abdominal Pain All Other Systems Reviewed And Are Negative: Yes Physical Exam - Summary Physical Exam Summary: Appearance: Well-appearing, Well-nourished, lying in bed comfortably Skin: Warm, dry, no obvious rash Eyes: sclera anicteric, no conjunctival pallor ENT: mucous membranes moist, pharynx appears normal Neck: Supple, nontender Respiratory: Clear to auscultation, no signs of respiratory distress Cardiovascular: Normal S1, S2. No murmurs. Normal distal pulses in tibial and radial bilaterally. Abdomen: Soft, nontender, normal active bowel sounds present Musculoskeletal: Normal, Strength/ROM Intact Neurological: A&Ox3, awake and alert, mentation is normal, speech is fluent and appropriate Psychiatric: affect is normal, does not appear anxious or depressed Triage Information Reviewed: Yes Vital Signs On Initial Exam: Initial Vitals Temp Pulse Resp BP Pulse Ox 95.2 F 100 20 71/53 100 12/23/17 02:48 12/23/17 02:48 12/23/17 02:48 12/23/17 02:48 12/23/17 02:48 Vital Signs Reviewed: Yes Diagnostics - Vital Signs Vital Signs Temp Pulse Resp BP Pulse Ox 12/23/17 02:48 95.2 F 100 20 71/53 100 - Laboratory Result Diagrams: 12/23/17 03:17 12/23/17 04:26 Lab Statement: Any lab studies that have been ordered have been reviewed, and results considered in the medical decision making process. - EKG 03:15 Cardiac Rate: NL - 86 BPM EKG Rhythm: Sinus Rhythm EKG Interpretation: P, QRS, T waves and interval nml. No ischemic changes. Normal EKG. Diabetic Course/Dx - Diagnoses Provider Diagnoses: DKA (diabetic ketoacidoses), Hyponatremia - Physician Notifications Discussed Care Of Patient With: Devan Tirado Time Discussed With Above Provider: 04:23 Instructed by Provider To: Admit As Inpatient Admit/Transition Orders Completed By ED Provider: Yes Discharge - Sign-Out/Discharge Documenting (check all that apply): Patient Departure - Pt will be admitted to [facility]. - Discharge Plan Condition: Fair Disposition: ADMITTED TO [facility] Referrals: Sheri Calderon MD [Primary Care Provider] - - Billing Disposition and Condition Condition: FAIR Disposition: Admitted to [facility]
[2017-12-23 03:38] LABS: ABS Basophils 0.1 10^3/ul (0-0.2); ABS Eosinophils 0.3 10^3/ul (0-0.6); ABS Lymphocytes 1.8 10^3/ul (1.0-4.8); ABS Monocytes 0.6 10^3/ul (0-0.8); ABS Neutrophils 3.9 10^3/ul (1.5-7.7); ABS Nucleated RBC 0 10^3/ul; Eosinophil % 4.6 % (0-6); Hematocrit 44 % (35-47); Hemoglobin 14.7 g/dl (12.0-16.0); Lymphocyte % 26.8 % (25-47); Mean Corpuscular HGB Conc 33 g/dl (31-36); Mean Corpuscular Hemoglobin 31 pg (27-31); Mean Corpuscular Volume 94 fL (80-97); Mean Platelet Volume 8.3 um3 (7.4-10.4); Nucleated Red Blood Cells % 0.2; Platelet Count 369 10^3/ul (150-450); Red Blood Count 4.68 10^6/ul (4.00-5.40); Red Cell Distribution Width 14 % (10.5-15); White Blood Count 6.6 10^3/ul (3.5-10.8)
[2017-12-23 03:48] LABS: EGFR Non-African American 51.1 (>60)
[2017-12-23] MEDS ORDERED: NS 0.9% 1000 ML* 2,000 ML IV ONE (04:12)
[2017-12-23] MEDS ORDERED: Insulin LISPRO* 1 UNITS UNIT SUBCUT ONE ×2 (05:16→15:34)
[2017-12-23] MEDS ORDERED: Dextrose 50% Syringe 50 ML* 25 GM/50 ML SYRINGE IV PUSH PRN ×2 (05:16→13:47)
[2017-12-23] MEDS ORDERED: Acetaminophen TAB* 325 MG PO PRN (05:36)
[2017-12-23] MEDS ORDERED: Ondansetron ODT TAB* 4 MG PO PRN (05:36)
--- NOTE | 2017-12-23 05:43 | HP ---
H&P (Free Text) History and Physical: PCP: Koko Calderon MD Date/Time: 12/23/2017 4449 CC: hyperglycemia HPI: Mrs Strong is a 72YO female HX DM, Looney syndrome, & HTN admitted to [facility] [place] 12/06-12/13/2017 for DKA presents tonight after being awakened from sleep "feeling rotten all over" when asked to clarify replies "like I was rolled over by a truck", but she denies pain. She admits to sweats, nausea w/o emesis, & light-headedness, but no chest pain, SOB, F/C, abdominal pain, diarrhea, B/U/F of urine, headache, cough, congestion, rash, or open wounds. She was concerned and called EMS. ED work up is notable for hyperglycemia of 501 w/ serum CO2 20, AG 13, and lactic acid 3.2. Troponin is 0.00 & ECG is benign. CXR & UA are ordered & pending. She has received 1L of 3 and reports feeling much better. H&P dated 12/06/2017 copied below. 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 diabetes HTN lactose intolerance Ambulatory Orders Fludrocortisone Acetate TAB* [Florinef TAB*] 0.05 mg PO DAILY 04/25/17 Hydrocortisone TAB* [Cortef TAB*] 20 mg PO DAILY 04/25/17 Insulin LISPRO* [HumaLOG*] 0 units SUBCUT SEE INSTRUCTIONS 04/25/17 Levothyroxine TAB* [Synthroid TAB*] 88 mcg PO DAILY 04/25/17 Aspirin EC TAB* [Ecotrin EC Low Dose 81 MG*] 81 mg PO DAILY 12/06/17 Biotin 10 mg PO DAILY 12/06/17 Escitalopram (NF) [Lexapro 10 mg (NF)] 5 mg PO DAILY 12/06/17 L.acidoph,Paracasei, B.lactis [Probiotic] 1 cap PO DAILY 12/06/17 Ubidecarenone [Co Q-10] 100 mg PO DAILY 12/06/17 Insulin GLARGINE(*) [Lantus(*)] 14 units SUBCUT QPM 12/23/17 Allergies atorvastatin Allergy (Intermediate, Verified 12/08/17 15:36) GI Upset rosuvastatin [From Crestor] Allergy (Verified 10/12/17 22:09) See Comment simvastatin [From Zocor] Allergy (Verified 10/12/17 22:09) See Comment myalgia amoxicillin [From Augmentin] Adverse Reaction (Intermediate, Verified 12/08/17 15:36) GI Upset clavulanic acid [From Augmentin] Adverse Reaction (Intermediate, Verified 15:36) GI Upset codeine Adverse Reaction (Intermediate, Verified 12/08/17 15:36) Nausea levofloxacin [From Levaquin] Adverse Reaction (Intermediate, Verified 12/08/17 15:36) GI Upset tramadol Adverse Reaction (Intermediate, Verified 12/08/17 15:36) Nausea And Vomiting venlafaxine [From Effexor] Adverse Reaction (Intermediate, Verified 12/08/17 15: 36) GI Upset PSurgHx OU cataract extractions tonsillectomy excisional L breast BX, benign tubal ligation hysterectomy SocHx: no tobacco, alcohol, or recreational drugs; lives independently; full code status FamHx: unknown ROS: as above, otherwise reviewed and all were negative vitals: Vital Signs Temp 35.1 C 12/23/17 02:48 Pulse 82 12/23/17 04:00 Resp 14 12/23/17 04:00 BP 107/61 12/23/17 03:50 Pulse Ox 99 12/23/17 04:00 Intake & Output 12/22/17 12/22/17 12/23/17 11:59 23:59 11:59 Weight 72.575 kg Constitutional: NAD, normally developed, well-nourished elderly white female HEENM: atraumatic; sclera/conjunctiva: anicteric/clear; hearing: clinically intact; oropharynx: clear, mucosa moist Neck: soft tissue: non-tender, no nuchal rigidity; thyroid: normal Pulmonary: clear to auscultation bilaterally, good aeration, no accessory muscle use CV: RR/RR, normal S1S2, no carotid bruit, no jugular venous distention, 2+ B DP/ PT, no edema Abdominal: soft, non-distended, non-tender, no rebound/guarding/rigidity, normoactive bowel sounds, no hepatosplenomegaly or masses, no costovertebral angle tenderness Musculoskeletal: general: grossly intact, non-tender Integumental: normal appearance and texture of exposed skin Psychiatric orientation: AA&O to PPS affect: calm mood: cooperative eye contact: fair to good content: reliable, but w/ paucity of details responses: timely insight: fair Testing: Lab Results 12/23/17 12/23/17 12/23/17 Range/Units 03:15 03:17 03:17 WBC 6.6 (3.5-10.8) 10^3/ul RBC 4.68 (4.00-5.40) 10^6/ul Hgb 14.7 (12.0-16.0) g/dl Hct 44 (35-47) % MCV 94 (80-97) fL MCH 31 (27-31) pg MCHC 33 (31-36) g/dl RDW 14 (10.5-15) % Plt Count 369 (150-450) 10^3/ul MPV 8.3 (7.4-10.4) um3 Neut % (Auto) 58.8 (38-83) % Lymph % (Auto) 26.8 (25-47) % Chester % (Auto) 8.7 H (0-7) % Eos % (Auto) 4.6 (0-6) % Baso % (Auto) 1.1 (0-2) % Absolute Neuts (auto) 3.9 (1.5-7.7) 10^3/ul Absolute Lymphs (auto) 1.8 (1.0-4.8) 10^3/ul Absolute Monos (auto) 0.6 (0-0.8) 10^3/ul Absolute Eos (auto) 0.3 (0-0.6) 10^3/ul Absolute Basos (auto) 0.1 (0-0.2) 10^3/ul Absolute Nucleated RBC 0 10^3/ul Nucleated RBC % 0.2 Sodium 125 L (135-145) mmol/L Potassium TNP Chloride 92 L (101-111) mmol/L Carbon Dioxide 20 L (22-32) mmol/L Anion Gap 13 H (2-11) mmol/L BUN 16 (6-24) mg/dL Creatinine 1.06 H (0.51-0.95) mg/dL Est GFR ( Amer) 61.8 (>60) Est GFR (Non-Af Amer) 51.1 (>60) BUN/Creatinine Ratio 15.1 (8-20) Glucose 501 H* (70-100) mg/dL POC Glucose (mg/dL) > 444 H* (70-100) mg/dL Lactic Acid (0.5-2.0) mmol/L Calcium 9.6 (8.6-10.3) mg/dL Total Bilirubin 0.70 (0.2-1.0) mg/dL AST TNP ALT 18 (7-52) U/L Alkaline Phosphatase 61 (34-104) U/L Troponin I 0.00 (<0.04) ng/mL Total Protein 6.5 (6.4-8.9) g/dL Albumin 3.6 (3.2-5.2) g/dL Globulin 2.9 (2-4) g/dL Albumin/Globulin Ratio 1.2 (1-3) 12/23/17 12/23/17 Range/Units 03:17 04:26 WBC (3.5-10.8) 10^3/ul RBC (4.00-5.40) 10^6/ul Hgb (12.0-16.0) g/dl Hct (35-47) % MCV (80-97) fL MCH (27-31) pg MCHC (31-36) g/dl RDW (10.5-15) % Plt Count (150-450) 10^3/ul MPV (7.4-10.4) um3 Neut % (Auto) (38-83) % Lymph % (Auto) (25-47) % Chester % (Auto) (0-7) % Eos % (Auto) (0-6) % Baso % (Auto) (0-2) % Absolute Neuts (auto) (1.5-7.7) 10^3/ul Absolute Lymphs (auto) (1.0-4.8) 10^3/ul Absolute Monos (auto) (0-0.8) 10^3/ul Absolute Eos (auto) (0-0.6) 10^3/ul Absolute Basos (auto) (0-0.2) 10^3/ul Absolute Nucleated RBC 10^3/ul Nucleated RBC % Sodium (135-145) mmol/L Potassium TNP Chloride (101-111) mmol/L Carbon Dioxide (22-32) mmol/L Anion Gap (2-11) mmol/L BUN (6-24) mg/dL Creatinine (0.51-0.95) mg/dL Est GFR ( Amer) (>60) Est GFR (Non-Af Amer) (>60) BUN/Creatinine Ratio (8-20) Glucose (70-100) mg/dL POC Glucose (mg/dL) (70-100) mg/dL Lactic Acid 3.2 H* (0.5-2.0) mmol/L Calcium (8.6-10.3) mg/dL Total Bilirubin (0.2-1.0) mg/dL AST TNP ALT (7-52) U/L Alkaline Phosphatase (34-104) U/L Troponin I (<0.04) ng/mL Total Protein (6.4-8.9) g/dL Albumin (3.2-5.2) g/dL Globulin (2-4) g/dL Albumin/Globulin Ratio (1-3) ECG, personally reviewed: NSR rate 86, no ischemia CXR, personally reviewed: ordered, pending Impression: 72F HX Looney syndrome (including hypothyroidism & Allons's disease), DM, HTN presenting with malaise of sudden onset awakening her from sleep w/ hyperglycemia & lab heralding impending DKA DIAGNOSIS & PLAN Primary hyperglycemia, early DKA : 8units lispro in ED : 3L NS bolus, if hypotension persists after may need stress dose steroids : Q4H glucometry w/ correctional lispro : continue outpatient glargine : NPO x/ meds w/ sips water : pseudohypoNatremia corrects to 131 : K not reported, hemolysed, redraw ordered : trend electrolytes : supportive care 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 : continue levothyroxine, fludrocortisone, & hydrocortisone HTN : not currently on anti-hypertensive & currently hypotensive : trend Admission Rational: observation for correction of hyperglycemia w/ electrolyte abnormality DVTp: heparin SQ Code Status: full HCP: Meño Alexander Critical Care time: minutes with >50% spent at the bedside obtaining a history, performing the examination, advising of diagnosis & treatment options along with risks/benefits/reasoning; remainder spent discussing with ER MD, reviewing labs and radiology exams --- History & Physical Patient: SALONI STRONG /Age: 08 1945 72 Medical Record#: [id number] Admission Date: 12/06/17 Provider: Joaquin Calabrese MD H&P (Free Text) History and Physical: History and Physical - Critical Care Limitations in history/physical: encephalopathy HPI : 72y F pmhx of DM, addisons disease, hypothyroidism; brought in by EMS, neighbor called EMS after patient was more confused in the past day, intermittently lethargic. History is she recently lost her . On insulin pump supposedly but may have stopped working. Limited history due to delirium and confused state.In ER, afebrile, tachycardic, BP stable. Initially thought to have taken more pain meds than normal but then found to be hyperglycemic. Lab work demonstrated DKA. Started on IVF and Insulin IV. ROS : limited due to encephalopathy PMHx: DM, hypothyroidism, addisons disease PSHx: unknown Family History: unknown Social History : Alcohol-none, Smoking-none, Drug use-none; recently lost her as per chart Allergies: Allergies Allergy/AdvReac Type Severity Reaction Status Date / Time amoxicillin [From Augmentin] Allergy GI Upset Verified 10/12/17 22:09 atorvastatin Allergy GI Upset Verified 10/12/17 22:09 clavulanic acid Allergy GI Upset Verified 10/12/17 22:09 [From Augmentin] codeine Allergy Nausea Verified 10/12/17 22:09 levofloxacin [From Levaquin] Allergy GI Upset Verified 10/12/17 22:09 rosuvastatin [From Crestor] Allergy See Comment Verified 10/12/17 22:09 simvastatin [From Zocor] Allergy See Comment Verified 10/12/17 22:09 tramadol Allergy Nausea And Verified 10/12/17 22:09 Vomiting venlafaxine [From Effexor] Allergy GI Upset Verified 10/12/17 22:09 Home Medications: Fludrocortisone Acetate TAB* [Florinef TAB*] 0.05 mg PO DAILY 04/25/17 [History Confirmed 12/06/17] Hydrocortisone TAB* [Cortef TAB*] 10 mg PO DAILY 04/25/17 [History Confirmed 05/14] Hydrocortisone TAB* [Cortef TAB*] 20 mg PO DAILY 04/25/17 [History Confirmed 05/14] Insulin LISPRO* [HumaLOG*] 0 units SUBCUT SEE INSTRUCTIONS 04/25/17 [History Confirmed 12/06/17] Levothyroxine TAB* [Synthroid TAB*] 88 mcg PO DAILY 04/25/17 [History Confirmed 12/06/17] Aspirin EC TAB* [Ecotrin EC Low Dose 81 MG*] 81 mg PO DAILY 12/06/17 [History Confirmed 12/06/17] Biotin 10 mg PO DAILY 12/06/17 [History Confirmed 12/06/17] Clobetasol Propionate [Clobex] 0.05 % TOPICAL BID PRN 12/06/17 [History Confirmed 12/06/17] Escitalopram (NF) [Lexapro 10 mg (NF)] 5 mg PO DAILY 12/06/17 [History Confirmed 12/06/17] L.acidoph,Paracasei, B.lactis [Probiotic] 1 cap PO DAILY 12/06/17 [History Confirmed 12/06/17] Pravastatin (NF) [Pravachol (NF)] 10 mg PO 1700 12/06/17 [History Confirmed 05/14] Ubidecarenone [Co Q-10] 100 mg PO DAILY 12/06/17 [History Confirmed 12/06/17] Tele: sinus tachy Vitals: Vital Signs Temp 98.2 F 12/06/17 15:28 Pulse 103 12/06/17 19:00 Resp 18 12/06/17 20:00 BP 130/ 61 12/06/17 19:47 Pulse Ox 98 12/06/17 19:00 Intake & Output 12/06/17 12/06/17 12/07/17 06:59 18:59 06:59 Weight 160 lb O2/Vent: RA Infusions: NS, Insulin Current Medications: Aspirin (Aspirin Ec Tab*) 81 mg PO DAILY DAVID Escitalopram Oxalate (Lexapro (Nf)) 5 mg PO DAILY DAVID Fludrocortisone Acetate (Florinef Tab*) 0.05 mg PO DAILY DAVID Hydrocortisone (Cortef Tab*) 10 mg PO DAILY [facility] Insulin Human Regular (Insulin Regular Ivpb) 100 units in 100 mls @ 7.258 mls/ hr IVPB Q13H DAVID; Protocol Sodium Chloride (Ns 0.9% 1000 Ml*) 1,000 mls @ 100 mls/hr IV PER RATE DAVID Magnesium Sulfate 2 gm/ Sodium (Chloride) 104 mls @ 104 mls/hr IV ONCE ONE Stop: 12/06/17 22:13 Levothyroxine Sodium (Synthroid Tab*) 88 mcg PO DAILY DAVID Pravastatin Sodium (Pravachol (Nf)) 10 mg PO 1700 DAVID Physical Exam: General: awake, alert, no distress, no diaphoresis; confused Head: normocephalic, atraumatic HEENT: no pallor, no icterus, moist mucous membranes Neck: soft, supple, no jvd, no stridor CVS: tachy, regular, no murmur Resp: bilateral air entry, no rhales, no wheeze, no rhonchi, no acc muscle use Abdomen: soft, mild tenderness+ diffuse, nondistended, bowel sounds present Ext: pulses+, warm, no edema Skin: intact, no breakdown, no dryness Neuro: awake, alert, confused, moving all extremities, no gross focal deficit Labs: Laboratory Results - last 24 hr 12/06/17 12/06/17 12/06/17 15:44 17:27 17:27 WBC 10.2 RBC 4.26 Hgb 13.4 Hct 41 MCV 97 MCH 31 MCHC 33 RDW 13 Plt Count 170 MPV 9.0 Neut % (Auto) 64.6 Lymph % (Auto) 17.0 L Chester % (Auto) 16.2 H Eos % (Auto) 1.7 Baso % (Auto) 0.5 Absolute Neuts (auto) 6.6 Absolute Lymphs (auto) 1.7 Absolute Monos (auto) 1.7 H Absolute Eos (auto) 0.2 Absolute Basos (auto) 0.1 Absolute Nucleated RBC 0 Nucleated RBC % 0 INR (Anticoag Therapy) Sodium 119 L* Potassium 5.5 H Chloride 82 L Carbon Dioxide 11 L* Anion Gap 26 H BUN 38 H Creatinine 2.32 H Est GFR ( Amer) 25.0 Est GFR (Non-Af Amer) 20.7 BUN/Creatinine Ratio 16.4 Glucose 819 H* POC Glucose (mg/dL) > 444 H* Serum Osmolality Lactic Acid Calcium 9.2 Phosphorus 5.2 H Magnesium 1.8 L Total Bilirubin 0.70 AST 14 ALT 11 Alkaline Phosphatase 71 Troponin I 0.01 Total Protein 6.2 L Albumin 3.5 Globulin 2.7 Albumin/Globulin Ratio 1.3 Salicylates < 2.50 Acetaminophen < 15 Serum Alcohol < 10 12/06/17 12/06/17 12/06/17 17:27 17:27 17:27 WBC RBC Hgb Hct MCV MCH MCHC RDW Plt Count MPV Neut % (Auto) Lymph % (Auto) Chester % (Auto) Eos % (Auto) Baso % (Auto) Absolute Neuts (auto) Absolute Lymphs (auto) Absolute Monos (auto) Absolute Eos (auto) Absolute Basos (auto) Absolute Nucleated RBC Nucleated RBC % INR (Anticoag Therapy) 1.07 H Sodium Potassium Chloride Carbon Dioxide Anion Gap BUN Creatinine Est GFR ( Amer) Est GFR (Non-Af Amer) BUN/Creatinine Ratio Glucose POC Glucose (mg/dL) Serum Osmolality 315 H Lactic Acid 2.8 H* Calcium Phosphorus Magnesium Total Bilirubin AST ALT Alkaline Phosphatase Troponin I Total Protein Albumin Globulin Albumin/Globulin Ratio Salicylates Acetaminophen Serum Alcohol 12/06/17 20:26 WBC RBC Hgb Hct MCV MCH MCHC RDW Plt Count MPV Neut % (Auto) Lymph % (Auto) Chester % (Auto) Eos % (Auto) Baso % (Auto) Absolute Neuts (auto) Absolute Lymphs (auto) Absolute Monos (auto) Absolute Eos (auto) Absolute Basos (auto) Absolute Nucleated RBC Nucleated RBC % INR (Anticoag Therapy) Sodium Potassium Chloride Carbon Dioxide Anion Gap BUN Creatinine Est GFR ( Amer) Est GFR (Non-Af Amer) BUN/Creatinine Ratio Glucose POC Glucose (mg/dL) > 444 H* Serum Osmolality Lactic Acid Calcium Phosphorus Magnesium Total Bilirubin AST ALT Alkaline Phosphatase Troponin I Total Protein Albumin Globulin Albumin/Globulin Ratio Salicylates Acetaminophen Serum Alcohol Imaging: cxr 12/[address] brain 12/06 no acute process Assessment: 72y F pmhx of DM, addisons disease, hypothyroidism; brought in by EMS, neighbor called EMS after patient was more confused in the past day, intermittently lethargic. History is she recently lost her . On insulin pump supposedly but may have stopped working. Limited history due to delirium and confused state. Found to be in DKA. -DKA -metabolic encephalopathy -REZA -hyperkalemia -abdominal tenderness -r/o depression Plan : Neuro - confused; suspect metabolic etiology; CT brain negative. delirium prec. avoid bdz. CVS - sinus tachy; prob from volume depletion/DKA. IVF hydration. no clear infection signs, will monitor. LA trend, likely from volume depletion and metabolic dysfunction from DKA Resp - on RA, no distress. ID - afebrile. wbc normal. no infectious source. CXR clear. no abx indicated. GI - tender abd; DKA? obtain CT abd/pelvis now. NPO. PPI daily. Renal - REZA, suspect from volume depletion. Hyperkalemia+, no ekg changes though. metabolic acidosis mixed from LA and DKA. IVF hydration NS. monitor K and Phos levels. replete Mg IV 2gm. Heme - hg stbale, plt okay Endo - DKA, IV insulin and IVF. K and Phos monitoring. Musculsk - bedrest, pressure ulcer proph Wounds - none Nutrition - NPO DVT prophylaxis: scds, heparin sq GI prophylaxis: ppi Central Line: no Arterial Line: no Calderon Cathetor: no Disposition: admit to ICU; >2 midnight expected length of stay Code Status: full code Total Critical Care time is 45 minutes, excluding procedures/teaching Joaquin Calabrese MD [employer] (Electronically Signed) <Electronically signed by Joaquin Calabrese MD> 12/06/172127 Entered by: Joaquin Calabrese MD Entered Date/Time: 12/06/172121 Copy to: CC: Joaquin Calabrese MD This report is only to be considered final once signed by the Provider(s) as displayed in the "<Electronically Signed by >" field (s). Absence of a signature indicates the report is in a draft status and still needs to be finalized. In the event this document was created by someone other than the signing Provider, the individual initiating the document will be listed in the "Entered by:" or "Dictated by:" cordova.
[2017-12-23] MEDS ORDERED: NS 0.9% 1000 ML* 1,000 ML IV SCH (05:45)
[2017-12-23] MEDS: Levothyroxine TAB* 88 MCG TAB PO SCH (07:25)
--- NOTE | 2017-12-23 07:42 | RAD ---
INDICATION: Hyperglycemia COMPARISON: December 08, 2017 TECHNIQUE: An AP portable view obtained at 0518 hours is submitted. FINDINGS: Bones/Soft Tissues: There are no acute bony findings. Cardiomediastinal: The cardiomediastinal silhouette is normal. Lungs: There are no infiltrates. Pleura: There are no pleural effusions. Other: None IMPRESSION: NO ACTIVE DISEASE.
[2017-12-23] MEDS: Citalopram TAB* 10 MG PO SCH (08:11)
[2017-12-23] MEDS: Docusate CAP* 100 MG PO SCH ×2 (08:12→22:02)
[2017-12-23] MEDS: Aspirin EC TAB* 81 MG TAB.EC PO SCH (08:12)
[2017-12-23] MEDS: Fludrocortisone Acetate TAB* 0.1 MG PO SCH (08:12)
[2017-12-23] MEDS: Hydrocortisone TAB* 10 MG PO SCH (08:12)
[2017-12-23] MEDS: Omeprazole CAP* 20 MG PO SCH (08:12)
[2017-12-23] MEDS: Insulin LISPRO* 1 UNITS UNIT SUBCUT SCH ×6 (08:13→22:02)
[2017-12-23 08:56] LABS: INR 0.98 (0.77-1.02)
[2017-12-23 13:24] LABS: Urine Appearance Clear; Urine Blood Negative (Negative); Urine Color Yellow; Urine Ketones Trace (Negative); Urine Protein Negative (Negative); Urine Urobilinogen Negative (Negative)
--- NOTE | 2017-12-23 13:41 | PN ---
Subjective - Subjective Reason for Note: Progress Note History: According to the patient, she was well yesterday morning and her glucose started to rise in the evening. She woke with symptoms of DKA and called 911. She was using an insulin pump until recently. She has been placed instead multiple daily injections owing to an admission 12/06 - 12/13 with DKA. She has not seen her primary diabetes team since discharge. She uses vials and syringes and keeps her insulin refrigerated. She is unable to give an account as to what happened last night. She states the vials of insulin are fresh. She admits she may have missed her dose of lantus insulin that she takes at 6 pm. Whether she missed other injections, I am not clear - she is unable to verbalize how she calculates her bolus shots. Today she is feeling improved. She no longer has abdominal pain and is hungry. Her FS have come down to the reference range. She denies any underlying other illnesses - in particular she has not had a UTI , URI or other intercurrent ilnesses. 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 Primary adrenal insufficiency (Chronic) E27.1 Primary hypothyroidism (Chronic) E03.9 Current Medications: Current Medications Acetaminophen (Tylenol Tab*) 650 mg PO Q6H PRN PRN Reason: FEVER/PAIN Aspirin (Aspirin Ec Tab*) 81 mg PO DAILY [facility] Last Admin: 12/23/17 08:12 Dose: 81 mg Citalopram Hydrobromide (Celexa Tab*) 10 mg PO DAILY [facility] Last Admin: 12/23/17 08:11 Dose: 10 mg Dextrose (D50w Syringe 50 Ml*) 12.5 gm IV PUSH .FOR FS < 60 - SS PRN PRN Reason: FS < 60 Docusate Sodium (Colace Cap*) 100 mg PO BID [facility] Last Admin: 12/23/17 08:12 Dose: 100 mg Fludrocortisone Acetate (Florinef Tab*) 0.05 mg PO DAILY [facility] Last Admin: 12/23/17 08:12 Dose: 0.05 mg Heparin Sodium (Porcine) (Heparin Vial(*)) 5,000 units SUBCUT Q8HR [facility] Hydrocortisone (Cortef Tab*) 20 mg PO DAILY [facility] Last Admin: 12/23/17 08:12 Dose: 20 mg Sodium Chloride (Ns 0.9% 1000 Ml*) 1,000 mls @ 125 mls/hr IV PER RATE [facility] Last Admin: 12/23/17 07:25 Dose: 125 mls/hr Insulin Glargine (Lantus(*)) 14 units SUBCUT QPM [facility] Insulin Human Lispro (Humalog*) 0 units SUBCUT Q4H [facility]; Protocol Last Admin: 12/23/17 11:37 Dose: Not Given Levothyroxine Sodium (Synthroid Tab*) 88 mcg PO DAILY@0600 [facility] Last Admin: 12/23/17 07:25 Dose: 88 mcg Omeprazole (Prilosec Cap*) 20 mg PO DAILY@0600 [facility] Last Admin: 12/23/17 08:12 Dose: 20 mg Ondansetron HCl (Zofran Odt Tab*) 4 mg PO Q6H PRN PRN Reason: n/v - Review of Systems Constitutional Symptoms: Yes: Fatigue Pulmonary: Negative: Cough Cardiology: Negative: Chest Pain, Shortness of Breath, Palpitations, Swelling of Ankles Gastroenterology: Negative: Abdominal Pain, Nausea, Vomiting Genital - Urinary: Positive: Normal Home Medications: Home Medications Medication Instructions Recorded Confirmed Type Fludrocortisone Acetate TAB* 0.05 mg PO DAILY 04/25/17 12/23/17 History [Florinef TAB*] Hydrocortisone TAB* [Cortef TAB*] 20 mg PO DAILY 04/25/17 12/23/17 History Insulin LISPRO* [HumaLOG*] 0 units SUBCUT SEE INSTRUCTIONS 04/25/17 12/23/17 History Levothyroxine TAB* [Synthroid TAB*] 88 mcg PO DAILY 04/25/17 12/23/17 History Aspirin EC TAB* [Ecotrin EC Low 81 mg PO DAILY 12/06/17 12/23/17 History Dose 81 MG*] Biotin 10 mg PO DAILY 12/06/17 12/23/17 History Escitalopram (NF) [Lexapro 10 mg 5 mg PO DAILY 12/06/17 12/23/17 History (NF)] L.acidoph,Paracasei, B.lactis 1 cap PO DAILY 12/06/17 12/23/17 History [Probiotic] Ubidecarenone [Co Q-10] 100 mg PO DAILY 12/06/17 12/23/17 History Insulin GLARGINE(*) [Lantus(*)] 14 units SUBCUT QPM 12/23/17 12/23/17 History Allergies: Allergies Allergy/AdvReac Type Severity Reaction Status Date / Time atorvastatin Allergy Intermediate GI Upset Verified 12/08/17 15:36 rosuvastatin [From Crestor] Allergy See Comment Verified 10/12/17 22:09 simvastatin [From Zocor] Allergy See Comment Verified 10/12/17 22:09 amoxicillin [From Augmentin] AdvReac Intermediate GI Upset Verified 12/08/17 15: 36 clavulanic acid AdvReac Intermediate GI Upset Verified 12/08/17 15:36 [From Augmentin] codeine AdvReac Intermediate Nausea Verified 12/08/17 15:36 levofloxacin [From Levaquin] AdvReac Intermediate GI Upset Verified 12/08/17 15: 36 tramadol AdvReac Intermediate Nausea And Verified 12/08/17 15:36 Vomiting venlafaxine [From Effexor] AdvReac Intermediate GI Upset Verified 12/08/17 15:36 Objective - Vital Signs Vital Signs: Vital Signs 12/23/17 12/23/17 12/23/17 02:48 02:49 02:51 Temperature 95.2 F Pulse Rate 100 100 102 Respiratory 20 22 16 Rate Blood Pressure 71/53 71/53 (mmHg) O2 Sat by Pulse 100 99 100 Oximetry 12/23/17 12/23/17 12/23/17 03:00 03:10 03:27 Temperature Pulse Rate 93 96 84 Respiratory 18 14 25 Rate Blood Pressure 90/60 96/61 (mmHg) O2 Sat by Pulse 99 99 99 Oximetry 12/23/17 12/23/17 12/23/17 03:50 04:00 04:20 Temperature Pulse Rate 82 82 Respiratory 9 14 17 Rate Blood Pressure 107/61 98/69 (mmHg) O2 Sat by Pulse 100 99 Oximetry 12/23/17 12/23/17 12/23/17 04:49 05:00 05:20 Temperature Pulse Rate Respiratory 16 10 13 Rate Blood Pressure 127/59 121/66 (mmHg) O2 Sat by Pulse Oximetry 12/23/17 12/23/17 12/23/17 05:35 05:42 07:38 Temperature 97.9 F 97.3 F 97.4 F Pulse Rate 104 110 91 Respiratory 18 17 16 Rate Blood Pressure 131/54 121/67 103/65 (mmHg) O2 Sat by Pulse 100 99 98 Oximetry 12/23/17 11:05 Temperature 98.4 F Pulse Rate 84 Respiratory 16 Rate Blood Pressure 104/55 (mmHg) O2 Sat by Pulse 100 Oximetry - Intake and Output Intake and Output: Intake & Output 12/21/17 12/22/17 12/23/17 12/24/17 11:59 11:59 11:59 11:59 Intake Total 1000 Balance 1000 Weight 160 lb Intake: IV Fluids 1000 ADLs: Meal Record Start: 12/23/17 05: 35 Freq: DAILY@0900,1400,1800 Status: Active Protocol: Created 12/23/17 05:35 System (Rec: 12/23/17 05:35 System [id number]) Document 12/23/17 08:57 [id number] (Rec: 12/23/17 08:57 [id number]) Intake and Output Start: 12/23/17 02: 47 Freq: Status: Active Protocol: Created 12/23/17 02:47 System (Rec: 12/23/17 02:47 System [id number]) Intake and Output Start: 12/23/17 05: 35 Freq: DAILY@0600,1400,2200 Status: Active Protocol: Created 12/23/17 05:35 System (Rec: 12/23/17 05:35 System [id number]) - Physical Exam General Physical Exam Comment: She is alert, oriented and in no acute distress. She is warm and well perfused General: No Cyanosis, No Anemia, No Jaundice, No Clubbing Skin: Normal: Rash Lungs and Chest: Yes: Chest Expansion Full, Chest Expansion Symetrica, Percussion Note Resonant, Vessicular Breath Sounds. No: Crackles, Wheezes Heart Rate and Rhythm: Regular Additional Cardiovascular: Yes: Normal Heart Sounds. No: Heart Murmur, Pedal Edema Abdominal Exam: Yes: Soft, Bowel Sounds Present. No: Distention, Abdominal Mass , Abdominal Tenderness - Extremities Cranial Nerves II-XII Intact: Yes Limbs: Normal Power, Normal Tone - Neuro Orientation: A/O x3 Speech: Normal Results - Results Lab Results: Laboratory Results - last 24 hr 12/23/17 12/23/17 12/23/17 03:15 03:17 03:17 WBC 6.6 RBC 4.68 Hgb 14.7 Hct 44 MCV 94 MCH 31 MCHC 33 RDW 14 Plt Count 369 MPV 8.3 Neut % (Auto) 58.8 Lymph % (Auto) 26.8 [place] % (Auto) 8.7 H Eos % (Auto) 4.6 Baso % (Auto) 1.1 Absolute Neuts (auto) 3.9 Absolute Lymphs (auto) 1.8 Absolute Monos (auto) 0.6 Absolute Eos (auto) 0.3 Absolute Basos (auto) 0.1 Absolute Nucleated RBC 0 Nucleated RBC % 0.2 INR (Anticoag Therapy) APTT Sodium 125 L Potassium TNP Chloride 92 L Carbon Dioxide 20 L Anion Gap 13 H BUN 16 Creatinine 1.06 H Est GFR ( Amer) 61.8 Est GFR (Non-Af Amer) 51.1 BUN/Creatinine Ratio 15.1 Glucose 501 H* POC Glucose (mg/dL) > 444 H* Lactic Acid Calcium 9.6 Total Bilirubin 0.70 AST TNP ALT 18 Alkaline Phosphatase 61 Troponin I 0.00 Total Protein 6.5 Albumin 3.6 Globulin 2.9 Albumin/Globulin Ratio 1.2 Urine Color Urine Appearance Urine pH Ur Specific [place] Urine Protein Urine Ketones Urine Blood Urine Nitrate Urine Bilirubin Urine Urobilinogen Ur Leukocyte Esterase Urine Glucose 12/23/17 12/23/17 12/23/17 03:17 04:26 06:48 WBC RBC Hgb Hct MCV MCH MCHC RDW Plt Count MPV Neut % (Auto) Lymph % (Auto) [place] % (Auto) Eos % (Auto) Baso % (Auto) Absolute Neuts (auto) Absolute Lymphs (auto) Absolute Monos (auto) Absolute Eos (auto) Absolute Basos (auto) Absolute Nucleated RBC Nucleated RBC % INR (Anticoag Therapy) APTT Sodium 131 L Potassium TNP 4.2 Chloride 97 L Carbon Dioxide 22 Anion Gap 12 H BUN 15 Creatinine 0.86 Est GFR ( Amer) 78.7 Est GFR (Non-Af Amer) 65.0 BUN/Creatinine Ratio 17.4 Glucose 415 H POC Glucose (mg/dL) Lactic Acid 3.2 H* Calcium 8.9 Total Bilirubin AST TNP ALT Alkaline Phosphatase Troponin I 0.00 Total Protein Albumin Globulin Albumin/Globulin Ratio Urine Color Urine Appearance Urine pH Ur Specific [place] Urine Protein Urine Ketones Urine Blood Urine Nitrate Urine Bilirubin Urine Urobilinogen Ur Leukocyte Esterase Urine Glucose 12/23/17 12/23/17 12/23/17 06:48 06:48 07:21 WBC RBC Hgb Hct MCV MCH MCHC RDW Plt Count MPV Neut % (Auto) Lymph % (Auto) [place] % (Auto) Eos % (Auto) Baso % (Auto) Absolute Neuts (auto) Absolute Lymphs (auto) Absolute Monos (auto) Absolute Eos (auto) Absolute Basos (auto) Absolute Nucleated RBC Nucleated RBC % INR (Anticoag Therapy) APTT Sodium Potassium 4.8 4.6 Chloride Carbon Dioxide Anion Gap BUN Creatinine Est GFR ( Amer) Est GFR (Non-Af Amer) BUN/Creatinine Ratio Glucose POC Glucose (mg/dL) 383 H Lactic Acid Calcium Total Bilirubin AST 24 ALT Alkaline Phosphatase Troponin I Total Protein Albumin Globulin Albumin/Globulin Ratio Urine Color Urine Appearance Urine pH Ur Specific [place] Urine Protein Urine Ketones Urine Blood Urine Nitrate Urine Bilirubin Urine Urobilinogen Ur Leukocyte Esterase Urine Glucose 12/23/17 12/23/17 12/23/17 08:35 08:36 11:12 WBC RBC Hgb Hct MCV MCH MCHC RDW Plt Count MPV Neut % (Auto) Lymph % (Auto) [place] % (Auto) Eos % (Auto) Baso % (Auto) Absolute Neuts (auto) Absolute Lymphs (auto) Absolute Monos (auto) Absolute Eos (auto) Absolute Basos (auto) Absolute Nucleated RBC Nucleated RBC % INR (Anticoag Therapy) 0.98 APTT 30.9 Sodium Potassium Chloride Carbon Dioxide Anion Gap BUN Creatinine Est GFR ( Amer) Est GFR (Non-Af Amer) BUN/Creatinine Ratio Glucose POC Glucose (mg/dL) 108 H Lactic Acid 1.6 Calcium Total Bilirubin AST ALT Alkaline Phosphatase Troponin I Total Protein Albumin Globulin Albumin/Globulin Ratio Urine Color Urine Appearance Urine pH Ur Specific [place] Urine Protein Urine Ketones Urine Blood Urine Nitrate Urine Bilirubin Urine Urobilinogen Ur Leukocyte Esterase Urine Glucose 12/23/17 13:03 WBC RBC Hgb Hct MCV MCH MCHC RDW Plt Count MPV Neut % (Auto) Lymph % (Auto) [place] % (Auto) Eos % (Auto) Baso % (Auto) Absolute Neuts (auto) Absolute Lymphs (auto) Absolute Monos (auto) Absolute Eos (auto) Absolute Basos (auto) Absolute Nucleated RBC Nucleated RBC % INR (Anticoag Therapy) APTT Sodium Potassium Chloride Carbon Dioxide Anion Gap BUN Creatinine Est GFR ( Amer) Est GFR (Non-Af Amer) BUN/Creatinine Ratio Glucose POC Glucose (mg/dL) Lactic Acid Calcium Total Bilirubin AST ALT Alkaline Phosphatase Troponin I Total Protein Albumin Globulin Albumin/Globulin Ratio Urine Color Yellow Urine Appearance Clear Urine pH 5.0 Ur Specific [place] 1.010 Urine Protein Negative Urine Ketones Trace A Urine Blood Negative Urine Nitrate Negative Urine Bilirubin Negative Urine Urobilinogen Negative Ur Leukocyte Esterase Negative Urine Glucose 3+(>=500 mg/dl) A Radiology Results: Patient Name: SALONI STRONG Medical Record#: [id number] Ordering Physician: Devan Tirado MD Acct.#: [id number] : 1945 Age: 72 Sex: F Location: [address] [place] [address]/TELEMETRY Exam Date: 12/23/17517 ADM Status: ADM Samuel Order Information: CHEST AP PORTABLE Accession Number: [id number] CPT: 15315 INDICATION: Hyperglycemia COMPARISON: December 08, 2017 TECHNIQUE: An AP portable view obtained at 0518 hours is submitted. FINDINGS: Bones/Soft Tissues: There are no acute bony findings. Cardiomediastinal: The cardiomediastinal silhouette is normal. Lungs: There are no infiltrates. Pleura: There are no pleural effusions. Other: None IMPRESSION: NO ACTIVE DISEASE. <Electronically signed by Jacinto Pepe MD in OV> 12/23/17738 Dictated By: Jacinto Pepe MD Dictated Date/Time: 12/23/17738 Transcribed Date/Time: 12/23/17737 Copy to: CC:Sheri Calderon MD; Devan Tirado MD Imaging - [facility] Imaging - [facility] [address] [place] [address] [place], [place] [id number] [place] [id number] ph [phone]) ph ([phone]) ph ([phone]) This report is only to be considered final once signed by the Provider(s) as displayed in the "<Electronically Signed by >" field (s). Absence of a signature indicates the report is in a draft status and still needs to be finalized. In the event this document was created by someone other than the signing Provider, the individual initiating the document will be listed in the "Entered by:" or "Dictated by:" cordova. 1 of 1 EKG Report: Normal sinus rhythm Rate 86 NC 156 QTc 457 QRS axis 42 Assessment - Problem List Assessment: Patient Problems REZA (acute kidney injury) (Acute) DKA (diabetic ketoacidoses) (Acute) Metabolic encephalopathy (Acute) Type 1 diabetes mellitus (Acute) Essential hypertension (Chronic) Polyglandular autoimmune syndrome, type 2 (Chronic) Primary adrenal insufficiency (Chronic) Primary hypothyroidism (Chronic) Plan: REZA (acute kidney injury) (Acute) Her creatinine was elevated yesterday, but has come back into the reference range with volume replacement DKA (diabetic ketoacidoses) (Acute) This has improved - it was initially mild to moderate Metabolic encephalopathy (Acute) This has resolved Type 1 diabetes mellitus (Acute) Poor ongoing control - not much insight into her condition and poor problem solving Essential hypertension (Chronic) stable Polyglandular autoimmune syndrome, type 2 (Chronic) ongoing Primary adrenal insufficiency (Chronic) ongoing Primary hypothyroidism (Chronic) ongoing I will resume her consistent carbohydrate counting diet. She will receive some further education. I will once again place her on a basal/bolus regimen. She needs a local diabetes team as they are not actively engaged in problem solving. I discussed this with the patient, she is willing to stay overnight.
[2017-12-23] MEDS ORDERED: Insulin GLARGINE(*) 1 UNITS UNIT SUBCUT SCH (18:00)
[2017-12-23] MEDS: Heparin VIAL(*) 5000 UNITS/ML VIAL (FIVE THOUSAND) SUBCUT SCH (22:03)
[2017-12-24] MEDS: Heparin VIAL(*) 5000 UNITS/ML VIAL (FIVE THOUSAND) SUBCUT SCH (06:15)
[2017-12-24] MEDS: Omeprazole CAP* 20 MG PO SCH (06:15)
[2017-12-24] MEDS: Levothyroxine TAB* 88 MCG TAB PO SCH (06:15)
[2017-12-24 06:48] LABS: ABS Basophils 0.1 10^3/ul (0-0.2); ABS Eosinophils 0.1 10^3/ul (0-0.6); ABS Lymphocytes 1.5 10^3/ul (1.0-4.8); ABS Monocytes 0.5 10^3/ul (0-0.8); ABS Neutrophils 1.8 10^3/ul (1.5-7.7); ABS Nucleated RBC 0 10^3/ul; Eosinophil % 3.5 % (0-6); Hematocrit 37 % (35-47); Hemoglobin 12.6 g/dl (12.0-16.0); Lymphocyte % 37.3 % (25-47); Mean Corpuscular HGB Conc 34 g/dl (31-36); Mean Corpuscular Hemoglobin 31 pg (27-31); Mean Corpuscular Volume 93 fL (80-97); Mean Platelet Volume 8.2 um3 (7.4-10.4); Nucleated Red Blood Cells % 0; Platelet Count 275 10^3/ul (150-450); Red Blood Count 4.01 10^6/ul (4.00-5.40); Red Cell Distribution Width 14 % (10.5-15); White Blood Count 3.9 10^3/ul (3.5-10.8)
[2017-12-24 07:00] LABS: EGFR Non-African American 67.8 (>60)
--- NOTE | 2017-12-24 07:23 | PN ---
Subjective - Subjective Reason for Note: Discharge Note History: She is recovered from her DKA. She acknowedges she has trouble remembering to take lantus insulin in the evening (she previously was using an insulin pump) - this is the likely cause of her DKA. She has a good appetite, she is walking independently. There is no evidence of any intercurrent illness. 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 Primary adrenal insufficiency (Chronic) E27.1 Primary hypothyroidism (Chronic) E03.9 Current Medications: Current Medications Acetaminophen (Tylenol Tab*) 650 mg PO Q6H PRN PRN Reason: FEVER/PAIN Aspirin (Aspirin Ec Tab*) 81 mg PO DAILY [facility] Last Admin: 12/23/17 08:12 Dose: 81 mg Citalopram Hydrobromide (Celexa Tab*) 10 mg PO DAILY [facility] Last Admin: 12/23/17 08:11 Dose: 10 mg Dextrose (D50w Syringe 50 Ml*) 12.5 gm IV PUSH .FOR FS < 60 - SS PRN PRN Reason: FS < 60 Docusate Sodium (Colace Cap*) 100 mg PO BID [facility] Last Admin: 12/23/17 22:02 Dose: 100 mg Fludrocortisone Acetate (Florinef Tab*) 0.05 mg PO DAILY [facility] Last Admin: 12/23/17 08:12 Dose: 0.05 mg Heparin Sodium (Porcine) (Heparin Vial(*)) 5,000 units SUBCUT Q8HR [facility] Last Admin: 12/24/17 06:15 Dose: 5,000 units Hydrocortisone (Cortef Tab*) 20 mg PO DAILY [facility] Last Admin: 12/23/17 08:12 Dose: 20 mg Insulin Glargine (Lantus(*)) 14 units SUBCUT QPM [facility] Last Admin: 12/23/17 17:59 Dose: 14 units Insulin Human Lispro (Humalog*) 0 units SUBCUT ACHS [facility]; Protocol Last Admin: 12/23/17 22:02 Dose: 2 units Insulin Human Lispro (Humalog*) 1 units SUBCUT AC [facility]; Protocol Last Admin: 12/23/17 18:00 Dose: 3 units Levothyroxine Sodium (Synthroid Tab*) 88 mcg PO DAILY@0600 [facility] Last Admin: 12/24/17 06:15 Dose: 88 mcg Omeprazole (Prilosec Cap*) 20 mg PO DAILY@0600 [facility] Last Admin: 12/24/17 06:15 Dose: 20 mg Ondansetron HCl (Zofran Odt Tab*) 4 mg PO Q6H PRN PRN Reason: n/v Home Medications: Home Medications Medication Instructions Recorded Confirmed Type Fludrocortisone Acetate TAB* 0.05 mg PO DAILY 04/25/17 12/23/17 History [Florinef TAB*] Hydrocortisone TAB* [Cortef TAB*] 20 mg PO DAILY 04/25/17 12/23/17 History Insulin LISPRO* [HumaLOG*] 0 units SUBCUT SEE INSTRUCTIONS 04/25/17 12/23/17 History Levothyroxine TAB* [Synthroid TAB*] 88 mcg PO DAILY 04/25/17 12/23/17 History Aspirin EC TAB* [Ecotrin EC Low 81 mg PO DAILY 12/06/17 12/23/17 History Dose 81 MG*] Biotin 10 mg PO DAILY 12/06/17 12/23/17 History Escitalopram (NF) [Lexapro 10 mg 5 mg PO DAILY 12/06/17 12/23/17 History (NF)] L.acidoph,Paracasei, B.lactis 1 cap PO DAILY 12/06/17 12/23/17 History [Probiotic] Ubidecarenone [Co Q-10] 100 mg PO DAILY 12/06/17 12/23/17 History Insulin GLARGINE(*) [Lantus(*)] 14 units SUBCUT QPM 12/23/17 12/23/17 History Allergies: Allergies Allergy/AdvReac Type Severity Reaction Status Date / Time atorvastatin Allergy Intermediate GI Upset Verified 12/08/17 15:36 rosuvastatin [From Crestor] Allergy See Comment Verified 10/12/17 22:09 simvastatin [From Zocor] Allergy See Comment Verified 10/12/17 22:09 amoxicillin [From Augmentin] AdvReac Intermediate GI Upset Verified 12/08/17 15: 36 clavulanic acid AdvReac Intermediate GI Upset Verified 12/08/17 15:36 [From Augmentin] codeine AdvReac Intermediate Nausea Verified 12/08/17 15:36 levofloxacin [From Levaquin] AdvReac Intermediate GI Upset Verified 12/08/17 15: 36 tramadol AdvReac Intermediate Nausea And Verified 12/08/17 15:36 Vomiting venlafaxine [From Effexor] AdvReac Intermediate GI Upset Verified 12/08/17 15:36 Objective - Vital Signs Vital Signs: Vital Signs 12/23/17 12/23/17 12/23/17 07:38 11:05 15:46 Temperature 97.4 F 98.4 F 99.5 F Pulse Rate 91 84 96 Respiratory 16 16 16 Rate Blood Pressure 103/65 104/55 108/58 (mmHg) O2 Sat by Pulse 98 100 98 Oximetry 12/23/17 12/23/17 12/23/17 20:00 20:11 23:30 Temperature 98.4 F 97.8 F Pulse Rate 84 85 Respiratory 18 16 20 Rate Blood Pressure 107/54 139/66 (mmHg) O2 Sat by Pulse 96 99 Oximetry 12/24/17 03:25 Temperature 98.2 F Pulse Rate 86 Respiratory 20 Rate Blood Pressure 135/70 (mmHg) O2 Sat by Pulse 97 Oximetry - Intake and Output Intake and Output: Intake & Output 12/21/17 12/22/17 12/23/17 12/24/17 11:59 11:59 11:59 11:59 Intake Total 1000 1685 Output Total 2050 Balance 1000 -365 Weight 166 lb Intake: IV Fluids 1000 255 Oral 1430 Output: Urine 2049 Other: # Bowel Movements 0 # Voids 1 ADLs: Meal Record Start: 12/23/17 05: 35 Freq: DAILY@0900,1400,1800 Status: Active Protocol: Created 12/23/17 05:35 System (Rec: 12/23/17 05:35 System [id number]) Document 12/23/17 08:57 [id number] (Rec: 12/23/17 08:57 [id number]) Document 12/23/17 14:00 [id number] (Rec: 12/23/17 15:14 [id number]) Document 12/23/17 15:40 [id number] (Rec: 12/23/17 15:40 [id number]) Document 12/23/17 18:00 (Rec: 12/23/17 18:39 [id number]) Intake and Output Start: 12/23/17 02: 47 Freq: Status: Active Protocol: Created 12/23/17 02:47 System (Rec: 12/23/17 02:47 System [id number]) Intake and Output Start: 12/23/17 05: 35 Freq: DAILY@0600,1400,2200 Status: Active Protocol: Created 12/23/17 05:35 System (Rec: 12/23/17 05:35 System [id number]) Document 12/23/17 14:00 [id number] (Rec: 12/23/17 15:15 [id number] [id number]) Document 12/23/17 22:00 (Rec: 12/23/17 22:29 [id number]) Document 12/24/17 05:56 [id number] (Rec: 12/24/17 05:56 [id number]) - Physical Exam General: No Cyanosis, No Anemia, No Jaundice, No Clubbing Lungs and Chest: Yes: Chest Expansion Full, Chest Expansion Symetrica, Percussion Note Resonant, Vessicular Breath Sounds. No: Crackles, Wheezes Heart Rate and Rhythm: Regular JVP: Not Elevated Additional Cardiovascular: Yes: Normal Heart Sounds. No: Pedal Edema Abdominal Exam: Yes: Soft, Bowel Sounds Present. No: Distention, Abdominal Tenderness - Extremities Cranial Nerves II-XII Intact: Yes Limbs: Normal Power - Neuro Orientation: A/O x3 Speech: Normal Results - Results Lab Results: Laboratory Results - last 24 hr 12/23/17 12/23/17 12/23/17 06:48 06:48 06:48 WBC RBC Hgb Hct MCV MCH MCHC RDW Plt Count MPV Neut % (Auto) Lymph % (Auto) Cannon % (Auto) Eos % (Auto) Baso % (Auto) Absolute Neuts (auto) Absolute Lymphs (auto) Absolute Monos (auto) Absolute Eos (auto) Absolute Basos (auto) Absolute Nucleated RBC Nucleated RBC % INR (Anticoag Therapy) APTT Sodium 131 L Potassium 4.2 4.8 4.6 Chloride 97 L Carbon Dioxide 22 Anion Gap 12 H BUN 15 Creatinine 0.86 Est GFR ( Amer) 78.7 Est GFR (Non-Af Amer) 65.0 BUN/Creatinine Ratio 17.4 Glucose 415 H POC Glucose (mg/dL) Lactic Acid Calcium 8.9 AST 24 Troponin I 0.00 C-Reactive Protein Urine Color Urine Appearance Urine pH Ur Specific [place] Urine Protein Urine Ketones Urine Blood Urine Nitrate Urine Bilirubin Urine Urobilinogen Ur Leukocyte Esterase Urine Glucose 12/23/17 12/23/17 12/23/17 07:21 08:35 08:36 WBC RBC Hgb Hct MCV MCH MCHC RDW Plt Count MPV Neut % (Auto) Lymph % (Auto) Cannon % (Auto) Eos % (Auto) Baso % (Auto) Absolute Neuts (auto) Absolute Lymphs (auto) Absolute Monos (auto) Absolute Eos (auto) Absolute Basos (auto) Absolute Nucleated RBC Nucleated RBC % INR (Anticoag Therapy) 0.98 APTT 30.9 Sodium Potassium Chloride Carbon Dioxide Anion Gap BUN Creatinine Est GFR ( Amer) Est GFR (Non-Af Amer) BUN/Creatinine Ratio Glucose POC Glucose (mg/dL) 383 H Lactic Acid 1.6 Calcium AST Troponin I C-Reactive Protein Urine Color Urine Appearance Urine pH Ur Specific [place] Urine Protein Urine Ketones Urine Blood Urine Nitrate Urine Bilirubin Urine Urobilinogen Ur Leukocyte Esterase Urine Glucose 12/23/17 12/23/17 12/23/17 11:12 13:03 16:55 WBC RBC Hgb Hct MCV MCH MCHC RDW Plt Count MPV Neut % (Auto) Lymph % (Auto) Cannon % (Auto) Eos % (Auto) Baso % (Auto) Absolute Neuts (auto) Absolute Lymphs (auto) Absolute Monos (auto) Absolute Eos (auto) Absolute Basos (auto) Absolute Nucleated RBC Nucleated RBC % INR (Anticoag Therapy) APTT Sodium Potassium Chloride Carbon Dioxide Anion Gap BUN Creatinine Est GFR ( Amer) Est GFR (Non-Af Amer) BUN/Creatinine Ratio Glucose POC Glucose (mg/dL) 108 H 343 H Lactic Acid Calcium AST Troponin I C-Reactive Protein Urine Color Yellow Urine Appearance Clear Urine pH 5.0 Ur Specific [place] 1.010 Urine Protein Negative Urine Ketones Trace A Urine Blood Negative Urine Nitrate Negative Urine Bilirubin Negative Urine Urobilinogen Negative Ur Leukocyte Esterase Negative Urine Glucose 3+(>=500 mg/dl) A 12/23/17 12/24/17 12/24/17 21:25 06:17 06:17 WBC 3.9 RBC 4.01 Hgb 12.6 Hct 37 MCV 93 MCH 31 MCHC 34 RDW 14 Plt Count 275 MPV 8.2 Neut % (Auto) 45.8 Lymph % (Auto) 37.3 Cannon % (Auto) 11.9 H Eos % (Auto) 3.5 Baso % (Auto) 1.5 Absolute Neuts (auto) 1.8 Absolute Lymphs (auto) 1.5 Absolute Monos (auto) 0.5 Absolute Eos (auto) 0.1 Absolute Basos (auto) 0.1 Absolute Nucleated RBC 0 Nucleated RBC % 0 INR (Anticoag Therapy) APTT Sodium 134 L Potassium 3.9 Chloride 103 Carbon Dioxide 25 Anion Gap 6 BUN 11 Creatinine 0.83 Est GFR ( Amer) 82.0 Est GFR (Non-Af Amer) 67.8 BUN/Creatinine Ratio 13.3 Glucose 176 H POC Glucose (mg/dL) 210 H Lactic Acid Calcium 8.7 AST Troponin I C-Reactive Protein 10.13 H Urine Color Urine Appearance Urine pH Ur Specific [place] Urine Protein Urine Ketones Urine Blood Urine Nitrate Urine Bilirubin Urine Urobilinogen Ur Leukocyte Esterase Urine Glucose Assessment - Problem List Assessment: Patient Problems REZA (acute kidney injury) (Acute) DKA (diabetic ketoacidoses) (Acute) Metabolic encephalopathy (Acute) Type 1 diabetes mellitus (Acute) Essential hypertension (Chronic) Polyglandular autoimmune syndrome, type 2 (Chronic) Primary adrenal insufficiency (Chronic) Primary hypothyroidism (Chronic) Plan: REZA (acute kidney injury) (Acute)DKA (diabetic ketoacidoses) (Acute)Metabolic encephalopathy (Acute) She has completely recovered. The likely cause is forgetting to take lantus insulin in the evening. The solution - take it in the mornings Type 1 diabetes mellitus (Acute) She has no retinopathy, nephropathy or neuropathy Essential hypertension (Chronic) controlled Polyglandular autoimmune syndrome, type 2 (Chronic) ongoing Primary adrenal insufficiency (Chronic) ongoing Primary hypothyroidism (Chronic) ongoing I spoke with the patient and she agrees to the following: * take lantus insulin 7 units tonight and start 14 units tomorrow morning * Follow up at my office in 2 days - she will require diabetes education and intensive diabetes management * We will determine alf if she can return to insulin pump therapy * She will learn how to use insulin pen devices * We will give her a update on carb counting and basal/bolus insulin therapy
[2017-12-24 07:51] VITALS: BP 101/84
[2017-12-24] MEDS: Fludrocortisone Acetate TAB* 0.1 MG PO SCH (09:33)
[2017-12-24] MEDS: Citalopram TAB* 10 MG PO SCH (09:34)
[2017-12-24] MEDS: Docusate CAP* 100 MG PO SCH (09:34)
[2017-12-24] MEDS: Hydrocortisone TAB* 10 MG PO SCH (09:34)
[2017-12-24] MEDS: Insulin LISPRO* 1 UNITS UNIT SUBCUT SCH ×2 (09:34→09:35)
[2017-12-24] MEDS: Aspirin EC TAB* 81 MG TAB.EC PO SCH (09:34)
--- NOTE | 2017-12-24 22:59 | DS ---
CC: Dr. Sheri Calderon * DISCHARGE SUMMARY: DATE OF ADMISSION: 12/23/17 DATE OF DISCHARGE: 12/24/17 DISCHARGE DIAGNOSES: 1. Diabetic ketoacidosis, [id number] secondary to forgetting evening dose of Lantus insulin. 2. Altered mental status. 3. Mild acute renal insufficiency. COMORBIDITIES: 1. Type 1 diabetes mellitus without retinopathy, nephropathy, or neuropathy. 2. Hypertension. 3. Polyglandular autoimmune syndrome (Looney syndrome). 4. Primary adrenal insufficiency. 5. Primary hypothyroidism. HISTORY: Radha Wright is a 72-year-old female. Her presentation is documented in Dr. Devan Tirado's admitting history and physical. In short, she had an admission on 12/06/17 and was discharged 12/13/17 with severe diabetic ketoacidosis. On this occasion, on the day before admission, she was fine in the morning, her blood sugar started rising during the day as she was woken up from sleep and with symptoms of sweats, nausea, lightheadedness and came to the hospital. Physical examination showed altered mental status but no other focal findings. INITIAL IMPRESSION: 1. Hyperglycemia. 2. Early diabetic ketoacidosis. INVESTIGATION: CBC: White count 6.6, hemoglobin 14.7, hematocrit 44, platelets of 369, neutrophil percentage 58.8. Chemistry: Sodium 125, chloride 92, bicarbonate 20, anion gap 103, BUN 16, creatinine 1.06, glucose 501, lactic acid 3.2. LFTs were within normal limits. Urine, trace ketones. EKG, rate 86, FL interval 156, QTc 457, QRS axis 42, normal sinus rhythm. Chest x-ray within normal limits. HOSPITAL COURSE: She had early [id number] diabetic ketoacidosis. This resolved rapidly with IV fluids and insulin. She discussed with me the likely course of this, which was that she previously was on an insulin pump and had been changed to basal bolus regimen owing to a previous episode of DKA. She has problems remembering to take her Lantus insulin in the evening. Therefore, I have recommended that we switch it to the morning. On the day of discharge, she is feeling completely well. She has a good appetite. No symptoms of diabetic ketoacidosis. She has been walking independently. PHYSICAL EXAMINATION ON THE DAY OF DISCHARGE: Temperature 98.2, pulse 86, respirations 20, oxygen saturation 97% on room air, blood pressure 135/70. She has no cyanosis, anemia, jaundice, clubbing, or lymphadenopathy. Cardiovascular System: Pulse was regular. Normal character and volume. Venous pressure not elevated. Heart sounds are normal. No added sounds or murmurs. No carotid bruits. No pedal edema. Pedal pulses present. Respiratory System: Her chest was clear. Abdomen: Soft, nontender. No masses or organomegaly. Nervous System: She was alert and oriented x3. Normal speech. Conjugate eye movements. Cranial nerves II through XII intact. Moving her arms and legs. Foot Examination: No ulcers, calluses, or infections. INVESTIGATIONS ON THE DAY OF DISCHARGE: BMP: Sodium was 134, glucose 176, otherwise within normal limits. CRP was 10.13. ASSESSMENT AND PLAN: 1. Diabetic ketoacidosis. Radha Wright is challenged by changing her regimen as she is forgetting to take her Lantus insulin in the evening. She is currently using syringes. I have suggested that tonight she take 7 units of Lantus before bed and tomorrow morning and start from 14 units and she will correct her hyperglycemia in the morning. She will follow up with me in 2 days. She will take most of her medications in the morning and moved to a basal bolus regimen for her insulin. As an outpatient, we will give her an update on carbohydrate counting. She has agreed to follow up at my office. 2. Type 1 diabetes mellitus. She has no history of microvascular disease. 3. Essential hypertension. Her blood pressure has been on target. 4. Polyglandular autoimmune disease type 2 or Looney syndrome. She has both adrenal insufficiency due to [place]'s disease and primary hypothyroidism and type 1 diabetes mellitus. We will be watching her for future organ-specific autoimmune diseases. I have suggested that she follows up in my office in 2 days. We will keep in close contact with her to ensure safety. She will also follow up with Dr. Sheri Calderon as an outpatient. DISCHARGE MEDICATIONS: 1. Lantus insulin 14 units q.a.m. 2. Lispro insulin 1 unit for every 15 g of carbohydrates plus 1 unit for every 50 mg/dL greater than 150 mg/dL. 3. Hydrocortisone 20 mg as directed per day. 4. Levothyroxine 88 mcg a day. 5. Fludrocortisone 0.05 mg daily. 6. Citalopram 5 mg daily. 7. Biotin 10 mg daily. 8. Aspirin 81 mg daily. 9. Ubidecarenone 100 mg daily. [id number]/[facility] #: [id number] [facility]
== END 2017-12-24 10:45 | disposition home or self-care (01) ==
LOC: ED 02:45 → MEDTELE 05:03
PROVIDERS: ADMIT Hospitalist; ATTEND Internal Medicine Geriatric Medicine
DX: E10.10 Type 1 diabetes mellitus with ketoacidosis without coma (principal); Z79.4 Long term (current) use of insulin; R41.82 Altered mental status, unspecified; N28.9 Disorder of kidney and ureter, unspecified; I10 Essential (primary) hypertension; E31.0 Autoimmune polyglandular failure; E03.9 Hypothyroidism, unspecified; E27.1 Primary adrenocortical insufficiency; Z79.82 Long term (current) use of aspirin; Z88.0 Allergy status to penicillin
CPT/HCPCS: 36415; 71045; 80048; 80053; 81003; 83605; 84132; 84484; 85025; 85610; 85730; 86140; 93005; 99284; A9270-GY; G0378; J1644

== ENCOUNTER 2018-01-01 13:23 | Emergency (ER) | payer MEDICARE ==
[2018-01-01] MEDS ORDERED: NS 0.9% 1000 ML* 1,000 ML IV ONE ×2 (13:45→15:24)
[2018-01-01 14:28] LABS: ABS Basophils 0.1 10^3/ul (0-0.2); ABS Eosinophils 0.1 10^3/ul (0-0.6); ABS Lymphocytes 0.9 10^3/ul (1.0-4.8); ABS Monocytes 0.5 10^3/ul (0-0.8); ABS Neutrophils 4.7 10^3/ul (1.5-7.7); ABS Nucleated RBC 0 10^3/ul; Hematocrit 47 % (35-47); Hemoglobin 15.5 g/dl (12.0-16.0); Lymphocyte % 14.3 % (25-47); Mean Corpuscular HGB Conc 33 g/dl (31-36); Mean Corpuscular Hemoglobin 31 pg (27-31); Mean Corpuscular Volume 92 fL (80-97); Mean Platelet Volume 9.5 um3 (7.4-10.4); Nucleated Red Blood Cells % 0; Platelet Count 194 10^3/ul (150-450); Red Blood Count 5.07 10^6/ul (4.00-5.40); Red Cell Distribution Width 14 % (10.5-15); White Blood Count 6.2 10^3/ul (3.5-10.8)
[2018-01-01 14:58] LABS: EGFR Non-African American 51.1 (>60)
--- NOTE | 2018-01-01 16:03 | ED ---
HPI Diabetic - HPI Summary HPI Summary: The pt is a 72 y/o female [facility] c/o diabetic problems since this morning. Her BG was 210 mg/dL before breakfast but 3-4 hours later, before eating lunch, she felt "lethargic", confused and diaphoretic. She notes loss of appetite and difficulty walking. EMS reports a BG of 140 en route. The pt. denies TRAN, blurred vision and CP. This is scribe Sapna Evans documenting for attending Dr. Thai MD. - History Of Current Complaint Chief Complaint: EDDiabeticProb Time Seen by Provider: 01/01/18 13:38 Hx Obtained From: Patient, EMS Onset/Duration: Gradual Onset, Still Present, Worse Since - Before lunch today Character: Lethargic Alleviating: Nothing Associated Signs & Symptoms: Negative - TRAN, blurred vision and CP., Diaphoresis - Prior to visit - Allergies/Home Medications Allergies/Adverse Reactions: Allergies Allergy/AdvReac Type Severity Reaction Status Date / Time atorvastatin Allergy Intermediate GI Upset Verified 01/01/18 13:36 rosuvastatin [From Crestor] Allergy See Comment Verified 01/01/18 13:36 simvastatin [From Zocor] Allergy See Comment Verified 01/01/18 13:36 amoxicillin [From Augmentin] AdvReac Intermediate GI Upset Verified 01/01/18 13: 36 clavulanic acid AdvReac Intermediate GI Upset Verified 01/01/18 13:36 [From Augmentin] codeine AdvReac Intermediate Nausea Verified 01/01/18 13:36 levofloxacin [From Levaquin] AdvReac Intermediate GI Upset Verified 01/01/18 13: 36 tramadol AdvReac Intermediate Nausea And Verified 01/01/18 13:36 Vomiting venlafaxine [From Effexor] AdvReac Intermediate GI Upset Verified 01/01/18 13:36 Home Medications: Home Medications Pravastatin (NF) [Pravachol (NF)] 10 mg PO QPM 01/01/18 [History Confirmed 01/01] PMH/Surg Hx/FS Hx/Imm Hx Previously Healthy: No Endocrine/Hematology History: Reports: Hx Diabetes, Hx Thyroid Disease - hypothyroid, Other Endocrine/Hematological Disorders - Stef's disease Denies: Hx Anemia, Hx Unexplained Bleeding Cardiovascular History: Denies: Hx Coronary Artery Disease, Hx Deep Vein Thrombosis, Hx Hypercholesterolemia, Hx Hypotension, Hx Hypertension, Hx Pacemaker/ICD, Hx Peripheral Vascular Disease, Hx Rheumatic Fever, Hx Syncope, Hx Valvular Heart Disease, Other Cardiovascular Problems/Disorders Respiratory History: Denies: Hx Asthma, Hx Chronic Bronchitis, Hx Chronic Obstructive Pulmonary Disease (COPD), Hx Cystic Fibrosis, Hx Lung Cancer, Hx Pleural Effusion, Hx Pneumonia, Hx Pulmonary Edema, Hx Pulmonary Embolism, Hx Seasonal Allergies, Hx Sleep Apnea, Other Respiratory Problems/Disorders GI History: Denies: Hx Jaundice Musculoskeletal History: Denies: Hx Osteoporosis Sensory History: Reports: Hx Cataracts - removed, Hx Contacts or Glasses Denies: Hx Hearing Aid Opthamlomology History: Reports: Hx Cataracts - removed, Hx Contacts or Glasses Neurological History: Denies: Hx Dementia, Hx Developmental Delay, Hx Headaches, Hx Migraine, Hx Seizures, Hx Spinal Cord Injury, Hx Transient Ischemic Attacks (TIA), Other Neuro Impairments/Disorders - Cancer History Hx Chemotherapy: No Hx Radiation Therapy: No - Surgical History Surgery Procedure, Year, and Place: . tubal Hx Anesthesia Reactions: No - Immunization History Date of Tetanus Vaccine: utd Date of Influenza Vaccine: fall 2016 Infectious Disease History: No Infectious Disease History: Denies: Hx Clostridium Difficile, Hx Hepatitis, Hx Human Immunodeficiency Virus (HIV), Hx of Known/Suspected MRSA, Hx Shingles, Hx Tuberculosis, Hx Known/ Suspected VRE, Hx Known/Suspected VRSA, History Other Infectious Disease, Traveled Outside the [place] in Last 30 Days - Family History Known Family History: Positive: Diabetes - Social History Occupation: Employed Full-time Lives: With Family Alcohol Use: None Hx Substance Use: No Substance Use Type: Reports: None Hx Tobacco Use: No Smoking Status (MU): Former Smoker Review of Systems Positive: Fatigue, Skin Diaphoresis - Prior to visit Negative: Blurred Vision Negative: Chest Pain Positive: Other - Positive: Lposs of appetite Positive: Other - Positive: Difficulty walking Positive: Slurred Speech - Positive: Confused . Negative: Headache All Other Systems Reviewed And Are Negative: Yes Physical Exam - Summary Physical Exam Summary: VITAL SIGNS: Reviewed. GENERAL: Patient is a well-developed,female who is lying comfortable in the stretcher. Patient is not in any acute respiratory distress. HEAD AND FACE: No signs of trauma. No ecchymosis, hematomas or skull depressions. No sinus tenderness. EYES: PERRLA, EOMI x 2, No injected conjunctiva, no nystagmus. EARS: Hearing grossly intact. Ear canals and tympanic membranes are within normal limits. MOUTH: Oropharynx within normal limits. NECK: Supple, trachea is midline, no adenopathy, no JVD, no carotid bruit, no c- spine tenderness, neck with full ROM. CHEST: Symmetric, no tenderness at palpation LUNGS: Clear to auscultation bilaterally. No wheezing or crackles. CVS: Regular rate and rhythm, S1 and S2 present, no murmurs or gallops appreciated. ABDOMEN: Soft, non-tender. No signs of distention. No rebound no guarding, and no masses palpated. Bowel sounds are normal. EXTREMITIES: FROM in all major joints, no edema, no cyanosis or clubbing. NEURO: Alert and oriented x 3. No acute neurological deficits. Speech is normal and follows commands. SKIN: Dry and warm Triage Information Reviewed: Yes Vital Signs On Initial Exam: Initial Vitals Temp Pulse Resp BP Pulse Ox 96.0 F 105 14 116/87 98 01/01/18 13:31 01/01/18 13:31 01/01/18 13:31 01/01/18 13:31 01/01/18 13:31 Vital Signs Reviewed: Yes Diagnostics - Vital Signs Vital Signs Temp Pulse Resp BP Pulse Ox 01/01/18 13:32 88 17 116/87 96 01/01/18 13:31 96.0 F 105 14 116/87 98 - Laboratory Lab Results: Lab Results 01/01/18 01/01/18 01/01/18 Range/Units 13:38 14:16 14:16 WBC 6.2 (3.5-10.8) 10^3/ul RBC 5.07 (4.00-5.40) 10^6/ul Hgb 15.5 (12.0-16.0) g/dl Hct 47 (35-47) % MCV 92 (80-97) fL MCH 31 (27-31) pg MCHC 33 (31-36) g/dl RDW 14 (10.5-15) % Plt Count 194 (150-450) 10^3/ul MPV 9.5 (7.4-10.4) um3 Neut % (Auto) 75.6 (38-83) % Lymph % (Auto) 14.3 L (25-47) % [place] % (Auto) 8.2 H (0-7) % Eos % (Auto) 1.0 (0-6) % Baso % (Auto) 0.9 (0-2) % Absolute Neuts (auto) 4.7 (1.5-7.7) 10^3/ul Absolute Lymphs (auto) 0.9 L (1.0-4.8) 10^3/ul Absolute Monos (auto) 0.5 (0-0.8) 10^3/ul Absolute Eos (auto) 0.1 (0-0.6) 10^3/ul Absolute Basos (auto) 0.1 (0-0.2) 10^3/ul Absolute Nucleated RBC 0 10^3/ul Nucleated RBC % 0 VBG pH (7.33-7.43) VBG pCO2 (41-51) mmHg VBG pO2 (35-45) mmHg VBG HCO3 (24-28) mmol/L VBG O2 Saturation (70-80) % VBG Base Excess (0-4) Sodium 132 L (135-145) mmol/L Potassium 4.1 (3.5-5.0) mmol/L Chloride 96 L (101-111) mmol/L Carbon Dioxide 24 (22-32) mmol/L Anion Gap 12 H (2-11) mmol/L BUN 13 (6-24) mg/dL Creatinine 1.06 H (0.51-0.95) mg/dL Est GFR ( Amer) 61.8 (>60) Est GFR (Non-Af Amer) 51.1 (>60) BUN/Creatinine Ratio 12.3 (8-20) Glucose 141 H (70-100) mg/dL POC Glucose (mg/dL) 142 H (70-100) mg/dL Lactic Acid (0.5-2.0) mmol/L Calcium 10.2 (8.6-10.3) mg/dL Total Bilirubin 0.60 (0.2-1.0) mg/dL AST 19 (13-39) U/L ALT 10 (7-52) U/L Alkaline Phosphatase 65 (34-104) U/L C-Reactive Protein 9.57 H (<8.01) mg/L Total Protein 7.1 (6.4-8.9) g/dL Albumin 4.1 (3.2-5.2) g/dL Globulin 3.0 (2-4) g/dL Albumin/Globulin Ratio 1.4 (1-3) 01/01/18 01/01/18 Range/Units 14:16 14:16 WBC (3.5-10.8) 10^3/ul RBC (4.00-5.40) 10^6/ul Hgb (12.0-16.0) g/dl Hct (35-47) % MCV (80-97) fL MCH (27-31) pg MCHC (31-36) g/dl RDW (10.5-15) % Plt Count (150-450) 10^3/ul MPV (7.4-10.4) um3 Neut % (Auto) (38-83) % Lymph % (Auto) (25-47) % [place] % (Auto) (0-7) % Eos % (Auto) (0-6) % Baso % (Auto) (0-2) % Absolute Neuts (auto) (1.5-7.7) 10^3/ul Absolute Lymphs (auto) (1.0-4.8) 10^3/ul Absolute Monos (auto) (0-0.8) 10^3/ul Absolute Eos (auto) (0-0.6) 10^3/ul Absolute Basos (auto) (0-0.2) 10^3/ul Absolute Nucleated RBC 10^3/ul Nucleated RBC % VBG pH 7.43 (7.33-7.43) VBG pCO2 26 L (41-51) mmHg VBG pO2 20 L (35-45) mmHg VBG HCO3 19.4 L (24-28) mmol/L VBG O2 Saturation 48.9 L (70-80) % VBG Base Excess -5.5 L (0-4) Sodium (135-145) mmol/L Potassium (3.5-5.0) mmol/L Chloride (101-111) mmol/L Carbon Dioxide (22-32) mmol/L Anion Gap (2-11) mmol/L BUN (6-24) mg/dL Creatinine (0.51-0.95) mg/dL Est GFR ( Amer) (>60) Est GFR (Non-Af Amer) (>60) BUN/Creatinine Ratio (8-20) Glucose (70-100) mg/dL POC Glucose (mg/dL) (70-100) mg/dL Lactic Acid 2.4 H* (0.5-2.0) mmol/L Calcium (8.6-10.3) mg/dL Total Bilirubin (0.2-1.0) mg/dL AST (13-39) U/L ALT (7-52) U/L Alkaline Phosphatase (34-104) U/L C-Reactive Protein (<8.01) mg/L Total Protein (6.4-8.9) g/dL Albumin (3.2-5.2) g/dL Globulin (2-4) g/dL Albumin/Globulin Ratio (1-3) Result Diagrams: 01/01/18 14:16 01/01/18 14:16 Lab Statement: Any lab studies that have been ordered have been reviewed, and results considered in the medical decision making process. Re-Evaluation - Re-Evaluation First Eval Re-Evaluation Time: 17:28 Change: Worse - The pt. notes dysuria and the urinalysis indicates contaminated urine. Diabetic Course/Dx - Course Assessment/Plan: This patient is a 72-year-old female who presents to the emergency department via ambulance with a chief complaint of having 1 episode of hypoglycemia. Apparently this morning before breakfast have fingerstick was 205. At lunchtime she became a little bit dizzy she tried to eat patient cutting check his sugar. In the EMS pressure went was 140. At this point the patient is a have any complaints. Blood tests without any significant abnormality except for sodium 132, creatinine 1.06, glucose 141, lactic acid is 2.4, and CRP is 9.57. In the ED course the patient was given IV fluids, and the patient is mentating well. Patient has no other complaints. Urinalysis is contaminated. Urine will be send for cultures. Patient is eating and drinking and has no other complaints. I discussed all the findings and test results with the patient. Patient was instructed to return to the emergency room immediately if any of the symptoms return or worsens. Plan of care was discussed with the patient and understands and agrees. All questions were answered at patient satisfaction. There were no further complaints or concerns. Lung exam before discharge: clear to auscultation B/L. Good air exchange. No wheezing or crackles heard. CVS: S1 and S2 present. No murmurs appreciated. Patient is alert and oriented x 3. Patient is hemodynamically stable. Patient will be discharged home with follow up PCP in the next 2-3 days - Diagnoses Provider Diagnoses: Hypoglycemia due to type 1 diabetes mellitus Discharge - Sign-Out/Discharge Documenting (check all that apply): Patient Departure - Discharge Plan Condition: Stable Disposition: HOME Patient Education Materials: Hypoglycemia in a Person with Diabetes (ED) Referrals: Sheri Calderon MD [Primary Care Provider] - 3 Days Additional Instructions: RETURN TO THE ED FOR ANY WORSENING OR NEW SYMPTOMS. Attestation Statement Scribe Attestation: This is bailey Evans documenting for attending Dr. Thai MD. User Type: Provider with Scribe Provider Attestation: The documentation recorded by the scribe accurately reflects the service I personally performed and the decisions made by me.
[2018-01-01 17:07] LABS: Urine Appearance Clear; Urine Blood Negative (Negative); Urine Color Yellow; Urine Ketones 1+ (Negative); Urine Protein Negative (Negative); Urine Red Blood Cell Trace(0-2/hpf) (Absent); Urine Specific Gravity 1.012 (1.010-1.030); Urine Urobilinogen Negative (Negative); Urine White Blood Cell 2+(11-20/hpf) (Absent)
[2018-01-01] MEDS ORDERED: Ciprofloxacin TAB* 250 MG PO ONE (17:26)
[2018-01-01 18:14] VITALS: BP 117/70
== END 2018-01-01 19:01 | disposition home or self-care (01) ==
LOC: ED 13:23
DX: E10.649 Type 1 diabetes mellitus with hypoglycemia without coma (principal); E78.00 Pure hypercholesterolemia, unspecified; Z79.899 Other long term (current) drug therapy; Z87.891 Personal history of nicotine dependence; Z88.3 Allergy status to other anti-infective agents; Z88.8 Allergy status to other drugs, medicaments and biological substances; Z88.5 Allergy status to narcotic agent
CPT/HCPCS: 36415; 80053; 81003; 81015; 82803; 83605; 85025; 86140; 87086; 96360; 99282; A9270-GY

== ENCOUNTER 2018-04-22 14:56 | Inpatient (IN) | payer MEDICARE, OTHER ==
[2018-04-22] MEDS ORDERED: NS 0.9% 1000 ML* 2,000 ML IV ONE (15:13)
--- NOTE | 2018-04-22 15:17 | ED ---
HPI Diabetic - HPI Summary HPI Summary: This patient is a 73 year old F brought in by EMS to [facility] accompanied by her family with a chief complaint of elevated blood glucose due to a broken pump. Pt states her pump stopped working 6 days ago and since she has been self- administering insulin. The patient rates the pain 0/10 in severity. Patient reports LE weakness, increased thirst, and fatigue. She states her last dose of insulin was this morning at an unknown time and an unknown dose. She denies polyuria, she states she has not urinated since last night. - History Of Current Complaint Chief Complaint: EDDiabeticProb Time Seen by Provider: 04/22/18 15:06 Hx Obtained From: Patient Onset/Duration: Lasting Days, Still Present Timing: Constant Severity Initially: Mild Severity Currently: Moderate Character: Other - fatigue Aggravating: Medication Change Associated Signs & Symptoms: Polydipsia - Allergies/Home Medications Allergies/Adverse Reactions: Allergies Allergy/AdvReac Type Severity Reaction Status Date / Time atorvastatin Allergy Intermediate GI Upset Verified 04/22/18 15:09 rosuvastatin [From Crestor] Allergy See Comment Verified 04/22/18 15:09 simvastatin [From Zocor] Allergy See Comment Verified 04/22/18 15:09 amoxicillin [From Augmentin] AdvReac Intermediate GI Upset Verified 04/22/18 15: 09 clavulanic acid AdvReac Intermediate GI Upset Verified 04/22/18 15:09 [From Augmentin] codeine AdvReac Intermediate Nausea Verified 04/22/18 15:09 levofloxacin [From Levaquin] AdvReac Intermediate GI Upset Verified 04/22/18 15: 09 tramadol AdvReac Intermediate Nausea And Verified 04/22/18 15:09 Vomiting venlafaxine [From Effexor] AdvReac Intermediate GI Upset Verified 04/22/18 15:09 Home Medications: Home Medications Clobetasol Propionate [Clobex] 0.05 % TOPICAL BID PRN 04/22/18 [History Confirmed 04/22/18] Hydrocortisone TAB* [Cortef*] 2.5 mg PO QPM 04/22/18 [History Confirmed 04/22/18 ] Hydrocortisone TAB* [Cortef*] 7.5 mg PO QAM 04/22/18 [History Confirmed 04/22/18 ] Insulin LISPRO* [HumaLOG*] 18 units SUBCUT DAILY 04/22/18 [History Confirmed ] Lactobacillus Acidophilus [Probiotic Acidophilus] 1 tab PO DAILY 04/22/18 [ History Confirmed 04/22/18] LevoCETirizine TAB (NF) [Xyzal TAB (NF)] 5 mg PO DAILY 04/22/18 [History Confirmed 04/22/18] Levothyroxine TAB* [Synthroid TAB*] 44 mcg PO FR 04/22/18 [History Confirmed ] Ubidecarenone [Co Q-10] 100 mg PO DAILY 04/22/18 [History Confirmed 04/22/18] hydrOXYzine HCL TAB* [Atarax 25 MG TAB*] 25 mg PO QID PRN 04/22/18 [History Confirmed 04/22/18] PMH/Surg Hx/FS Hx/Imm Hx Endocrine/Hematology History: Reports: Hx Diabetes, Hx Thyroid Disease - hypothyroid, Other Endocrine/Hematological Disorders - Rapides's disease Denies: Hx Anemia, Hx Unexplained Bleeding Cardiovascular History: Denies: Hx Coronary Artery Disease, Hx Deep Vein Thrombosis, Hx Hypercholesterolemia, Hx Hypotension, Hx Hypertension, Hx Pacemaker/ICD, Hx Peripheral Vascular Disease, Hx Rheumatic Fever, Hx Syncope, Hx Valvular Heart Disease, Other Cardiovascular Problems/Disorders Respiratory History: Denies: Hx Asthma, Hx Chronic Bronchitis, Hx Chronic Obstructive Pulmonary Disease (COPD), Hx Cystic Fibrosis, Hx Lung Cancer, Hx Pleural Effusion, Hx Pneumonia, Hx Pulmonary Edema, Hx Pulmonary Embolism, Hx Seasonal Allergies, Hx Sleep Apnea, Other Respiratory Problems/Disorders GI History: Denies: Hx Jaundice Musculoskeletal History: Denies: Hx Osteoporosis Sensory History: Reports: Hx Cataracts - removed, Hx Contacts or Glasses Denies: Hx Hearing Aid Opthamlomology History: Reports: Hx Cataracts - removed, Hx Contacts or Glasses Neurological History: Denies: Hx Dementia, Hx Developmental Delay, Hx Headaches, Hx Migraine, Hx Seizures, Hx Spinal Cord Injury, Hx Transient Ischemic Attacks (TIA), Other Neuro Impairments/Disorders - Cancer History Hx Chemotherapy: No Hx Radiation Therapy: No - Surgical History Surgery Procedure, Year, and Place: . tubal Hx Anesthesia Reactions: No - Immunization History Date of Tetanus Vaccine: utd Date of Influenza Vaccine: fall 2016 Infectious Disease History: No Infectious Disease History: Denies: Hx Clostridium Difficile, Hx Hepatitis, Hx Human Immunodeficiency Virus (HIV), Hx of Known/Suspected MRSA, Hx Shingles, Hx Tuberculosis, Hx Known/ Suspected VRE, Hx Known/Suspected VRSA, History Other Infectious Disease, Traveled Outside the [place] in Last 30 Days - Family History Known Family History: Positive: Diabetes - Social History Alcohol Use: None Hx Substance Use: No Substance Use Type: Reports: None Hx Tobacco Use: No Smoking Status (MU): Former Smoker Review of Systems Constitutional: Other - polydipsia Positive: Fatigue Genitourinary: Negative - polyuria Positive: Weakness All Other Systems Reviewed And Are Negative: Yes Physical Exam - Summary Physical Exam Summary: Appearance: The patient is well-nourished in no acute distress and in no acute pain. Skin: There is slight tenting HEENT: The head is normocephalic and atraumatic. The pupils are equal and reactive. The conjunctivae are clear and without drainage. Nares are patent and without drainage. Mouth reveals moist mucous membranes and the throat is without erythema and exudate. The external ears are intact. The ear canals are patent and without drainage. The tympanic membranes are intact. Neck: The neck is supple with full range of motion and non-tender. There are no carotid bruits. There is no neck vein distension. Respiratory: Chest is non-tender. Lungs are clear to auscultation and breath sounds are symmetrical and equal. Cardiovascular: Heart is regular rate and rhythm. There is no murmur or rub auscultated. There is no peripheral edema and pulses are symmetrical and equal. Abdomen: The abdomen is soft and non-tender. There are normal bowel sounds heard in all four quadrants and there is no organomegaly palpated. Musculoskeletal: There is no back tenderness noted. Extremities are non-tender with full range of motion. There is good capillary refill. There is no peripheral edema or calf tenderness elicited. Neurological: Patient is alert and oriented to person, place and time. The patient has symmetrical motor strength in all four extremities. Cranial nerves are grossly intact. Deep tendon reflexes are symmetrical and equal in all four extremities. Psychiatric: The patient has an appropriate affect and does not exhibit any anxiety or depression. Triage Information Reviewed: Yes Vital Signs On Initial Exam: Initial Vitals Temp Pulse Resp BP Pulse Ox 99.1 F 108 17 97/46 92 04/22/18 15:04 04/22/18 15:04 04/22/18 15:04 04/22/18 15:04 04/22/18 15:04 Vital Signs Reviewed: Yes Diagnostics - Vital Signs Vital Signs Temp Pulse Resp BP Pulse Ox 04/22/18 15:04 99.1 F 108 25 97/46 91 - Laboratory Result Diagrams: 04/22/18 16:34 04/22/18 16:34 Lab Statement: Any lab studies that have been ordered have been reviewed, and results considered in the medical decision making process. - EKG 15:26 Cardiac Rate: Tachycardia - 100 bpm EKG Rhythm: Sinus Tachycardia Diabetic Course/Dx - Course Course Of Treatment: Ms. Wright presented to the emergency department complaining that she had not been taking her insulin correctly. She says that her insulin pump started to fail a few days ago and she has been using a sliding scale but underdosing herself with insulin. She is feeling lethargic at this point and hasn't urinated since last evening. Her fingerstick was high an IV was initiated with fluids while labs were obtained. They were somewhat difficult to obtained and there was a mild delay. She was found to be hyperglycemic and acidotic and an insulin drip was initiated. She was a difficult stick and we lost the initial IV and a single 22-gauge IV was not sufficient therefore a central line was placed. She will be admitted to the hospitalist service - Diagnoses Provider Diagnoses: DKA (diabetic ketoacidoses) - Physician Notifications Discussed Care Of Patient With: Micaela Mueller - Hospitalist Time Discussed With Above Provider: 18:11 Instructed by Provider To: Admit As Inpatient - Critical Care Time Critical Care Time: 30-74 min Discharge - Sign-Out/Discharge Documenting (check all that apply): Patient Departure - Admit - Discharge Plan Condition: Stable Disposition: ADMITTED TO [facility] - Billing Disposition and Condition Condition: STABLE Disposition: Admitted to [facility] - Attestation Statements Document Initiated by Scribe: Yes Documenting Scribe: Manav Evans Provider For Whom Scribe is Documenting (Include Credential): Dr. Marvin Alexander MD Scribe Attestation: Manav Bojorquez , scribed for Dr. Marvin Alexander MD on at 2058. Scribe Documentation Reviewed: Yes Provider Attestation: The documentation as recorded by the scribe, Manav Bello and Sapna Evans accurately reflects the service I personally performed and the decisions made by me, Dr. Marvin Alexander MD
[2018-04-22 16:53] LABS: ABS Basophils 0 10^3/ul (0-0.2); ABS Eosinophils 0 10^3/ul (0-0.6); ABS Lymphocytes 2.2 10^3/ul (1.0-4.8); ABS Neutrophils 7.4 10^3/ul (1.5-7.7); ABS Nucleated RBC 0 10^3/ul; Eosinophil % 0.3 %; Hematocrit 42 % (35-47); Hemoglobin 12.8 g/dl (12.0-16.0); Lymphocyte % 19.1 %; Mean Corpuscular HGB Conc 31 g/dl (31-36); Mean Corpuscular Hemoglobin 31 pg (27-31); Mean Corpuscular Volume 100 fL (80-97); Nucleated Red Blood Cells % 0.1; Platelet Count 181 10^3/ul (150-450); Red Blood Count 4.17 10^6/ul (4.00-5.40); Red Cell Distribution Width 14 % (10.5-15); White Blood Count 11.6 10^3/ul (3.5-10.8)
[2018-04-22 17:02] LABS: EGFR Non-African American 21.8 (>60)
[2018-04-22] MEDS ORDERED: Insulin REGULAR(*) 1 UNITS UNIT IV PUSH ONE (17:11)
[2018-04-22] MEDS ORDERED: Insulin IVPB 100 units/100 ml 100 UNITS/100 ML UNIT IVPB ONE (17:11)
[2018-04-22] MEDS ORDERED: Hydrocortisone INJ* 100 MG VIAL IV ONE (18:35)
[2018-04-22] MEDS ORDERED: Acetaminophen TAB* 325 MG PO PRN (18:43)
[2018-04-22] MEDS ORDERED: NS 0.9% 1000 ML* 3,000 ML IV ONE (18:43)
[2018-04-22] MEDS ORDERED: NS 0.9% 1000 ML* 1,000 ML IV SCH ×2 (18:45→18:50)
[2018-04-22] MEDS ORDERED: Hydrocortisone INJ* 100 MG VIAL IV SCH (19:00)
[2018-04-22] MEDS ORDERED: Insulin IVPB 100 units/100 ml 100 UNITS/100 ML UNIT IVPB SCH (19:00)
[2018-04-22] MEDS ORDERED: Levothyroxine TAB* 88 MCG TAB PO SCH (19:00)
[2018-04-22 21:16] LABS: EGFR Non-African American 27.5 (>60)
[2018-04-22] MEDS: Heparin VIAL(*) 5000 UNITS/ML VIAL (FIVE THOUSAND) SUBCUT SCH (21:37)
[2018-04-22] MEDS ORDERED: NS 0.9% w/ 20 Meq KCL 1000 ML* 1,000 ML IV SCH (22:00)
[2018-04-22] MEDS ORDERED: D5W 1/2 NS KCl 20 Meq 1000 ML* 1,000 ML IV SCH (23:45)
--- NOTE | 2018-04-23 00:02 | HP ---
CC: Dr. Sheri Calderon; Dr. Stanley; Dr. Nunez * HISTORY AND PHYSICAL: DATE OF ADMISSION: 04/22/18 PRIMARY CARE PROVIDER: Dr. Sheri Calderon. CONSULTING NURSE NAVIGATOR: Dr. Stanley. ATTENDING PHYSICIAN WHILE IN THE HOSPITAL: Dr. Светлана Sun.* (DICTATED BY ROSARIO LEAL NP) CHIEF COMPLAINT: Weakness. HISTORY OF PRESENT ILLNESS: Ms. Wright is a 73-year-old female patient, who comes into the ED today stating that she has just been feeling weak and she says she has not been able to get her insulin for 24 hours. I question the validity of her history giving ability as she is confused to time. She thinks it is September. According to the nurse's notes, there was another person here with her when she presented. Her neighbors brought her in and they had said that her insulin pump has been broke for 6 to 7 days and she has been trying to manage her sugar at home with subcu insulin. She came in today because of the increasing weakness. Her neighbors were concerned because she again appeared to be profoundly weak. She denied any recent cough, fevers, chills, nausea, vomiting or diarrhea to me or any abdominal pain, but she does state that she has just felt more tired, more weak. She came in, she was ultimately found to be in significant DKA. Because of this, we were asked to evaluate for admission. PAST MEDICAL HISTORY: Significant for: 1. Diabetes. 2. Hypothyroid. 3. Hyperlipidemia. 4. [facility]. 5. Looney syndrome. PAST SURGICAL HISTORY: She has had a cataract, tubal ligation, , and tonsils and adenoids. HOME MEDICATIONS: According to the list provided include: 1. CoQ10 100 mg p.o. daily. 2. Probiotic 1 tablet daily. 3. Florinef 0.05 mg p.o. daily. 4. Lexapro 5 mg daily. 5. Pravachol 10 mg daily. 6. Synthroid 44 mcg on Sunday. 7. Aspirin 81 mg daily. 8. Synthroid 88 mcg p.o. Sunday, Sunday, Sunday, Sunday, , Sunday. 9. Cortef (hydrocortisone) 7.5 mg in the morning, 2.5 mg at bedtime. 10. Atarax 25 mg p.o. 4 times daily as needed. 11. Levocetirizine 5 mg p.o. daily. 12. Clobetasol 0.05% topically b.i.d. as needed. 13. Insulin lispro 18 units subcu daily, although she was on a drip at one point. ALLERGIES TO MEDICATIONS: Include ATORVASTATIN, CLINDAMYCIN, ROSUVASTATIN, SIMVASTATIN, AUGMENTIN, CODEINE, LEVOFLOXACIN, TRAMADOL, and EFFEXOR. FAMILY HISTORY: She says both her parents of old age. SOCIAL HISTORY: She does not smoke. She does not drink. She is . Surrogate decision maker is her neighbor. REVIEW OF SYSTEMS: There is again no documented fever. She denied having any significant weight change. There is no double vision. She denied having any ear discharge. There was no rhinorrhea, no sore throat, no thyroid enlargement. She denied having any chest pain. There was no orthopnea, no nocturnal dyspnea. There was no abdominal pain, no nausea, no vomiting. No dysuria, no frequency. No seizure, no loss of consciousness. No pruritus and no skin ulcerations. Review of 14 systems was completed, all others negative. PHYSICAL EXAMINATION GENERAL: At this time, Ms. Wright is a 73-year-old female patient. She appears to be chronically ill-appearing. She is sitting in the ED stretcher. She does appear to be in a mild amount of respiratory distress. She is mildly tachypneic in the mid 20s. VITAL SIGNS: Blood pressure 88/46, pulse 110, respirations 28, O2 sat 94%, temperature 99.1. HEENT: Head: Atraumatic and normocephalic. Eyes: EOMs intact. Sclerae anicteric and not pale. Throat: Oral mucosa appears to be dry. No oropharyngeal erythema. NECK: Supple. LUNGS: Clear to auscultation bilaterally. No wheezes, rales, or rhonchi. HEART: Sounds S1, S2. She had a regular rate and rhythm. There were no murmurs, rubs, or gallops. ABDOMEN: Soft, flat, nontender. Bowel sounds were present. EXTREMITIES: Pulses were 2+ throughout. She is moving all 4 extremities with 5 /5 strength. NEUROLOGIC: She is awake. She is drowsy. She is confused to time. She thinks it is May. She knows her name and knows that she is in the hospital, but again confused to time. She had no gross focal deficits. SKIN: Intact. DIAGNOSTIC STUDIES/LAB DATA: Labs revealed a WBC of 11.8, RBC of 4.17, hemoglobin of 12.8, hematocrit of 42, platelet count of 118. Blood gas, VBG; pH is 7.08, pCO2 of 41, bicarb of 9.1. Chemistries revealed sodium 122, potassium 5.4, chloride was 90, bicarb was 10, BUN 36, creatinine of 2.21, glucose of 677, lactic 3.6, calcium 9.0. Total bili 0.6, AST 13, ALT 8, alk phos 53. Troponin 0.01. CRP was 139. She had an EKG obtained today, which showed a sinus tachycardia, rate of 100. No ST elevation was noted. There was a normal axis. No T-wave inversions. When you review it to her previous EKG, it is similar with the exception of tachycardia is now new. She may have a little bit elevation minimal in V6 only. Old medical records were reviewed. ASSESSMENT AND PLAN: Ms. Wright is a 73-year-old female patient coming into the ED today with complaints of weakness, on evaluation found to be in diabetic ketoacidosis. She will be admitted under inpatient status for: 1. Diabetic ketoacidosis. Again, noncompliance may be the biggest precipitating factor for this diabetic ketoacidosis. Apparently, her pump has not been working for 6 to 7 days and she did not take her insulin for at least 24 hours. She has been bolused with regular insulin down here. I have started a drip. Unfortunately, IV access is an issue. She has a 22-gauge in the AC and she is going to need frequent blood draws and several IVs for fluids and possible potassium replacement, for insulin drip and for other IV medications such her Synthroid and hydrocortisone. I have requested a central line. I touched base with my boiler testing technician there and agreement with this. I have asked the ED to place this. My plan is to give her 3 more liters of IV fluids wide open, she has only received 2. She does look profoundly dehydrated. I will after this start normal saline at 200 an hour. Once her sugar drops below 250, we will switch her over to D5 half-normal at 150 and in addition to this, we will continue the insulin drip per protocol and we will continue to follow. I have checked an A1c and I do notice her A1c has been 10. I will again check her for underlying infection that may have set this off as well such as urinary tract infection or flu and blood cultures have been ordered as well. I do note the lactic acidosis, which could just be secondary to again the diabetic ketoacidosis, but we will trend these. I do not think she needs any antibiotics just yet because I do not think there is an obvious source of infection. We will consider touching base with Dr. Nunez, our building principal, tomorrow for further management and recommendations. 2. Stef's disease. Again, in the setting of this acute illness, I will place her on stress dose pulse steroids. 3. Hypothyroidism. I have changed her over to IV Synthroid in the acute illness. 4. Hyperlipidemia. Continue meds as prescribed. 5. Depression. Continue meds as prescribed. 6. DVT prophylaxis: She will be placed on heparin subcu. 7. Code status: Full code. 8. Fluids, electrolytes, and nutrition: She is n.p.o. When her gap closes, we can certainly get her on a diet. TIME SPENT: Time spent on the admission, which is critical care time 70 minutes , greater than half of the time was spent [id number] with the patient obtaining my history and physical, other half of the time was spent going over the plan of care with the patient and implementing plan of care. I did discuss the plan of care with my attending, Dr. Sun; she is in agreement. ROSARIO LEAL, VARINDER [id number]/CPS #: [id number] GEOVANNA
[2018-04-23 00:52] LABS: EGFR Non-African American 37.6 (>60)
[2018-04-23] MEDS ORDERED: Dextrose 50% Syringe 50 ML* 25 GM/50 ML SYRINGE IV PUSH PRN ×3 (01:01→04:31)
[2018-04-23] MEDS: Insulin GLARGINE(*) 1 UNITS UNIT SUBCUT SCH (01:19)
[2018-04-23] MEDS ORDERED: Hydrocortisone INJ* 100 MG VIAL IV SCH (02:00)
[2018-04-23] MEDS: NS 0.9% 1000 ML* 1,000 ML IV SCH ×2 (02:13→12:44)
[2018-04-23 04:26] LABS: ABS Basophils 0 10^3/ul (0-0.2); ABS Eosinophils 0 10^3/ul (0-0.6); ABS Lymphocytes 0.8 10^3/ul (1.0-4.8); ABS Monocytes 0.6 10^3/ul (0-0.8); ABS Neutrophils 6.2 10^3/ul (1.5-7.7); ABS Nucleated RBC 0 10^3/ul; Eosinophil % 0.1 %; Hematocrit 36 % (35-47); Hemoglobin 11.7 g/dl (12.0-16.0); Lymphocyte % 10.8 %; Mean Corpuscular HGB Conc 33 g/dl (31-36); Mean Corpuscular Hemoglobin 31 pg (27-31); Mean Corpuscular Volume 93 fL (80-97); Mean Platelet Volume 8.5 fL (7.4-10.4); Nucleated Red Blood Cells % 0; Platelet Count 179 10^3/ul (150-450); Red Blood Count 3.83 10^6/ul (4.00-5.40); Red Cell Distribution Width 13 % (10.5-15); White Blood Count 7.6 10^3/ul (3.5-10.8)
[2018-04-23 04:27] LABS: Urine Appearance Clear; Urine Blood 1+ (Negative); Urine Color Straw; Urine Ketones Trace (Negative); Urine Protein Negative (Negative); Urine Red Blood Cell 1+(3-5/hpf) (Absent); Urine Specific Gravity 1.005 (1.010-1.030); Urine Urobilinogen Negative (Negative); Urine White Blood Cell 3+(>20/hpf) (Absent)
[2018-04-23 04:31] LABS: INR 1.12 (0.77-1.02)
[2018-04-23] MEDS ORDERED: Insulin LISPRO* 1 UNITS UNIT SUBCUT ONE ×2 (04:31→04:49)
[2018-04-23 04:42] LABS: EGFR Non-African American 43.7 (>60)
[2018-04-23] MEDS: Heparin VIAL(*) 5000 UNITS/ML VIAL (FIVE THOUSAND) SUBCUT SCH ×3 (06:25→22:56)
[2018-04-23] MEDS: Levothyroxine TAB* 88 MCG TAB PO SCH (06:30)
[2018-04-23] MEDS: Insulin LISPRO* 1 UNITS UNIT SUBCUT SCH ×6 (07:51→20:59)
[2018-04-23] MEDS ORDERED: Insulin GLARGINE(*) 1 UNITS UNIT SUBCUT ONE ×2 (07:58→22:00)
--- NOTE | 2018-04-23 08:08 | PN ---
Date of Service: 04/23/18 - [facility] note Critical Care Services: Pt seen and examined at bedside. 73 y o f with h/o Looney syndrome, DM, hypothyroidism, adrenal insufficiency with admissions in the past for DKA. Pt was admitted for AMS, reportedly insulin pump was non-functioning and she was self administering insulin. Pt was found to be in DKA. Pt received 4L IVF, was started on Insulin drip AG closed quickly and drip was stopped at 2 am after administering 10U of long acting insulin around 1am. Recent Bl sugar was around 305 at 8 am. Pt is more alert this am. She is unsure of what happened around time she was hospitalized. She was able to say who brought her to hospital. Pt denied fever, chills, urinary complaints, headaches, N, V, abd pain. Meds, labs, vitals reviewed Vital Signs: Temp Pulse Resp BP SpO2 FiO2 98.2 F 74 17 109/58 99 04/23/18 03:47 04/23/18 06:01 04/23/18 06:01 04/23/18 06:00 04/23/18 07:53 Physical Exam: Gen: Pt in NAD, alert, awake, orientedX3 HEENT: PERRLA, Rt IJ in place Lungs: Good a/e b/l, no wheeze Cardiac: S1, S2+, regular Abdomen: Obese, BS+ Extremities: No edema, erythematous area in rt 2nd toe, pt reported trauma recently, tenderness+ in area Neuro: No focal deficits Skin: No rash Fluid Balance (Past 24 Hours): I= 6413 O= 1950 Net 4463 Intake & Output 04/21/18 04/22/18 04/23/18 04/24/18 06:59 06:59 06:59 06:59 Intake Total 6413.5 Output Total 1950 Balance 4463.5 Weight 167 lb 8.821 oz Intake: IV Fluids 6345 D5W 1/2 NS 20 meq KCL 916 NS (0.9%) 3429 Medicated IV 68.5 CC - Insulin 68.5 Oral 0 Output: Urine 1950 Labs: Laboratory Results - last 24 hr 04/22/18 04/22/18 04/22/18 16:12 16:34 16:34 WBC 11.6 H RBC 4.17 Hgb 12.8 Hct 42 MCV 100 H MCH 31 MCHC 31 RDW 14 Plt Count 181 MPV 9.0 Neut % (Auto) 63.5 Lymph % (Auto) 19.1 [place] % (Auto) 16.9 Eos % (Auto) 0.3 Baso % (Auto) 0.2 Absolute Neuts (auto) 7.4 Absolute Lymphs (auto) 2.2 Absolute Monos (auto) 2.0 H Absolute Eos (auto) 0 Absolute Basos (auto) 0 Absolute Nucleated RBC 0 Nucleated RBC % 0.1 INR (Anticoag Therapy) ABG pH ABG pCO2 ABG pO2 ABG HCO3 ABG O2 Saturation ABG Base Excess VBG pH 7.08 L VBG pCO2 41 VBG pO2 25 L VBG HCO3 9.9 L VBG O2 Saturation 37.7 L VBG Base Excess -17.2 L Sodium 122 L Potassium 5.4 H Chloride 90 L Carbon Dioxide 10 L* Anion Gap 22 H BUN 36 H Creatinine 2.21 H Est GFR ( Amer) 26.4 Est GFR (Non-Af Amer) 21.8 BUN/Creatinine Ratio 16.3 Glucose 677 H* POC Glucose (mg/dL) Lactic Acid Calcium 9.0 Total Bilirubin 0.60 AST 13 ALT 8 Alkaline Phosphatase 53 Troponin I 0.01 C-Reactive Protein 139.17 H Total Protein 5.6 L Albumin 3.4 Globulin 2.2 Albumin/Globulin Ratio 1.5 Urine Color Urine Appearance Urine pH Ur Specific [place] Urine Protein Urine Ketones Urine Blood Urine Nitrate Urine Bilirubin Urine Urobilinogen Ur Leukocyte Esterase Urine WBC (Auto) Urine RBC (Auto) Ur Squamous Epith Cells Urine Bacteria Urine Glucose Influenza A (Rapid) Influenza B (Rapid) 04/22/18 04/22/18 04/22/18 16:34 18:56 19:05 WBC RBC Hgb Hct MCV MCH MCHC RDW Plt Count MPV Neut % (Auto) Lymph % (Auto) [place] % (Auto) Eos % (Auto) Baso % (Auto) Absolute Neuts (auto) Absolute Lymphs (auto) Absolute Monos (auto) Absolute Eos (auto) Absolute Basos (auto) Absolute Nucleated RBC Nucleated RBC % INR (Anticoag Therapy) ABG pH ABG pCO2 ABG pO2 ABG HCO3 ABG O2 Saturation ABG Base Excess VBG pH VBG pCO2 VBG pO2 VBG HCO3 VBG O2 Saturation VBG Base Excess Sodium Potassium Chloride Carbon Dioxide Anion Gap BUN Creatinine Est GFR ( Amer) Est GFR (Non-Af Amer) BUN/Creatinine Ratio Glucose POC Glucose (mg/dL) > 444 H* Lactic Acid 3.6 H* Calcium Total Bilirubin AST ALT Alkaline Phosphatase Troponin I C-Reactive Protein Total Protein Albumin Globulin Albumin/Globulin Ratio Urine Color Urine Appearance Urine pH Ur Specific [place] Urine Protein Urine Ketones Urine Blood Urine Nitrate Urine Bilirubin Urine Urobilinogen Ur Leukocyte Esterase Urine WBC (Auto) Urine RBC (Auto) Ur Squamous Epith Cells Urine Bacteria Urine Glucose Influenza A (Rapid) Negative Influenza B (Rapid) Negative 04/22/18 04/22/18 04/22/18 20:42 21:07 21:07 WBC RBC Hgb Hct MCV MCH MCHC RDW Plt Count MPV Neut % (Auto) Lymph % (Auto) [place] % (Auto) Eos % (Auto) Baso % (Auto) Absolute Neuts (auto) Absolute Lymphs (auto) Absolute Monos (auto) Absolute Eos (auto) Absolute Basos (auto) Absolute Nucleated RBC Nucleated RBC % INR (Anticoag Therapy) ABG pH 7.30 L ABG pCO2 28 L ABG pO2 85 ABG HCO3 16.1 L ABG O2 Saturation 98.9 H ABG Base Excess -11.3 L VBG pH VBG pCO2 VBG pO2 VBG HCO3 VBG O2 Saturation VBG Base Excess Sodium 129 L Potassium 3.9 D Chloride 104 Carbon Dioxide 15 L Anion Gap 10 BUN 34 H Creatinine 1.81 H Est GFR ( Amer) 33.3 Est GFR (Non-Af Amer) 27.5 BUN/Creatinine Ratio 18.8 Glucose 275 H POC Glucose (mg/dL) 302 H Lactic Acid Calcium 7.9 L Total Bilirubin AST ALT Alkaline Phosphatase Troponin I C-Reactive Protein Total Protein Albumin Globulin Albumin/Globulin Ratio Urine Color Urine Appearance Urine pH Ur Specific [place] Urine Protein Urine Ketones Urine Blood Urine Nitrate Urine Bilirubin Urine Urobilinogen Ur Leukocyte Esterase Urine WBC (Auto) Urine RBC (Auto) Ur Squamous Epith Cells Urine Bacteria Urine Glucose Influenza A (Rapid) Influenza B (Rapid) 04/22/18 04/22/18 04/22/18 21:36 22:02 23:04 WBC RBC Hgb Hct MCV MCH MCHC RDW Plt Count MPV Neut % (Auto) Lymph % (Auto) [place] % (Auto) Eos % (Auto) Baso % (Auto) Absolute Neuts (auto) Absolute Lymphs (auto) Absolute Monos (auto) Absolute Eos (auto) Absolute Basos (auto) Absolute Nucleated RBC Nucleated RBC % INR (Anticoag Therapy) ABG pH ABG pCO2 ABG pO2 ABG HCO3 ABG O2 Saturation ABG Base Excess VBG pH VBG pCO2 VBG pO2 VBG HCO3 VBG O2 Saturation VBG Base Excess Sodium Potassium Chloride Carbon Dioxide Anion Gap BUN Creatinine Est GFR ( Amer) Est GFR (Non-Af Amer) BUN/Creatinine Ratio Glucose POC Glucose (mg/dL) 249 H 200 H Lactic Acid 3.4 H* Calcium Total Bilirubin AST ALT Alkaline Phosphatase Troponin I C-Reactive Protein Total Protein Albumin Globulin Albumin/Globulin Ratio Urine Color Urine Appearance Urine pH Ur Specific [place] Urine Protein Urine Ketones Urine Blood Urine Nitrate Urine Bilirubin Urine Urobilinogen Ur Leukocyte Esterase Urine WBC (Auto) Urine RBC (Auto) Ur Squamous Epith Cells Urine Bacteria Urine Glucose Influenza A (Rapid) Influenza B (Rapid) 04/23/18 04/23/18 04/23/18 00:15 00:23 01:14 WBC RBC Hgb Hct MCV MCH MCHC RDW Plt Count MPV Neut % (Auto) Lymph % (Auto) [place] % (Auto) Eos % (Auto) Baso % (Auto) Absolute Neuts (auto) Absolute Lymphs (auto) Absolute Monos (auto) Absolute Eos (auto) Absolute Basos (auto) Absolute Nucleated RBC Nucleated RBC % INR (Anticoag Therapy) ABG pH ABG pCO2 ABG pO2 ABG HCO3 ABG O2 Saturation ABG Base Excess VBG pH VBG pCO2 VBG pO2 VBG HCO3 VBG O2 Saturation VBG Base Excess Sodium 130 L Potassium 3.8 Chloride 105 Carbon Dioxide 19 L Anion Gap 6 BUN 28 H Creatinine 1.38 H Est GFR ( Amer) 45.5 Est GFR (Non-Af Amer) 37.6 BUN/Creatinine Ratio 20.3 H Glucose 198 H POC Glucose (mg/dL) 195 H 212 H Lactic Acid Calcium 8.0 L Total Bilirubin AST ALT Alkaline Phosphatase Troponin I C-Reactive Protein Total Protein Albumin Globulin Albumin/Globulin Ratio Urine Color Urine Appearance Urine pH Ur Specific [place] Urine Protein Urine Ketones Urine Blood Urine Nitrate Urine Bilirubin Urine Urobilinogen Ur Leukocyte Esterase Urine WBC (Auto) Urine RBC (Auto) Ur Squamous Epith Cells Urine Bacteria Urine Glucose Influenza A (Rapid) Influenza B (Rapid) 1104/23/18 04/23/18 02:15 04:06 04:10 WBC RBC Hgb Hct MCV MCH MCHC RDW Plt Count MPV Neut % (Auto) Lymph % (Auto) [place] % (Auto) Eos % (Auto) Baso % (Auto) Absolute Neuts (auto) Absolute Lymphs (auto) Absolute Monos (auto) Absolute Eos (auto) Absolute Basos (auto) Absolute Nucleated RBC Nucleated RBC % INR (Anticoag Therapy) ABG pH ABG pCO2 ABG pO2 ABG HCO3 ABG O2 Saturation ABG Base Excess VBG pH VBG pCO2 VBG pO2 VBG HCO3 VBG O2 Saturation VBG Base Excess Sodium 129 L Potassium 4.9 Chloride 103 Carbon Dioxide 16 L Anion Gap 10 BUN 24 Creatinine 1.21 H Est GFR ( Amer) 52.9 Est GFR (Non-Af Amer) 43.7 BUN/Creatinine Ratio 19.8 Glucose 274 H POC Glucose (mg/dL) 235 H Lactic Acid Calcium 8.4 L Total Bilirubin AST ALT Alkaline Phosphatase Troponin I C-Reactive Protein Total Protein Albumin Globulin Albumin/Globulin Ratio Urine Color Straw Urine Appearance Clear Urine pH 5.0 Ur Specific [place] 1.005 L Urine Protein Negative Urine Ketones Trace A Urine Blood 1+ A Urine Nitrate Negative Urine Bilirubin Negative Urine Urobilinogen Negative Ur Leukocyte Esterase 3+ A Urine WBC (Auto) 3+(>20/hpf) A Urine RBC (Auto) 1+(3-5/hpf) A Ur Squamous Epith Cells Present A Urine Bacteria 1+ A Urine Glucose 2+(150 mg/dl) A Influenza A (Rapid) Influenza B (Rapid) 04/23/18 04/23/18 04/23/18 04:10 04:10 04:10 WBC 7.6 RBC 3.83 L Hgb 11.7 L Hct 36 MCV 93 MCH 31 MCHC 33 RDW 13 Plt Count 179 MPV 8.5 Neut % (Auto) 81.4 Lymph % (Auto) 10.8 [place] % (Auto) 7.6 Eos % (Auto) 0.1 Baso % (Auto) 0.1 Absolute Neuts (auto) 6.2 Absolute Lymphs (auto) 0.8 L Absolute Monos (auto) 0.6 Absolute Eos (auto) 0 Absolute Basos (auto) 0 Absolute Nucleated RBC 0 Nucleated RBC % 0 INR (Anticoag Therapy) 1.12 H ABG pH ABG pCO2 ABG pO2 ABG HCO3 ABG O2 Saturation ABG Base Excess VBG pH VBG pCO2 VBG pO2 VBG HCO3 VBG O2 Saturation VBG Base Excess Sodium Potassium Chloride Carbon Dioxide Anion Gap BUN Creatinine Est GFR ( Amer) Est GFR (Non-Af Amer) BUN/Creatinine Ratio Glucose POC Glucose (mg/dL) Lactic Acid 1.5 Calcium Total Bilirubin AST ALT Alkaline Phosphatase Troponin I C-Reactive Protein Total Protein Albumin Globulin Albumin/Globulin Ratio Urine Color Urine Appearance Urine pH Ur Specific [place] Urine Protein Urine Ketones Urine Blood Urine Nitrate Urine Bilirubin Urine Urobilinogen Ur Leukocyte Esterase Urine WBC (Auto) Urine RBC (Auto) Ur Squamous Epith Cells Urine Bacteria Urine Glucose Influenza A (Rapid) Influenza B (Rapid) 04/23/18 04/23/18 04:10 06:26 WBC RBC Hgb Hct MCV MCH MCHC RDW Plt Count MPV Neut % (Auto) Lymph % (Auto) [place] % (Auto) Eos % (Auto) Baso % (Auto) Absolute Neuts (auto) Absolute Lymphs (auto) Absolute Monos (auto) Absolute Eos (auto) Absolute Basos (auto) Absolute Nucleated RBC Nucleated RBC % INR (Anticoag Therapy) ABG pH ABG pCO2 ABG pO2 ABG HCO3 ABG O2 Saturation ABG Base Excess VBG pH VBG pCO2 VBG pO2 VBG HCO3 VBG O2 Saturation VBG Base Excess Sodium Potassium Chloride Carbon Dioxide Anion Gap BUN Creatinine Est GFR ( Amer) Est GFR (Non-Af Amer) BUN/Creatinine Ratio Glucose POC Glucose (mg/dL) 286 H 331 H Lactic Acid Calcium Total Bilirubin AST ALT Alkaline Phosphatase Troponin I C-Reactive Protein Total Protein Albumin Globulin Albumin/Globulin Ratio Urine Color Urine Appearance Urine pH Ur Specific [place] Urine Protein Urine Ketones Urine Blood Urine Nitrate Urine Bilirubin Urine Urobilinogen Ur Leukocyte Esterase Urine WBC (Auto) Urine RBC (Auto) Ur Squamous Epith Cells Urine Bacteria Urine Glucose Influenza A (Rapid) Influenza B (Rapid) Studies: CXR was personally reviewed: Rt IJ in place. evidence of vascular congestion Nutrition: NPO since admission. 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 Pt`s insulin pump has been non- functioning and she was self injecting insulin resulting in DKA. She has required insulin drip, has been off since 2am, AG closed 1. DKA due to inadequate insulin , no sings of infection 2. Hyponatremia 3. Hyperglycemia 4. Metabolic acidosis 5. AMS sec to metabolic encephalopathy, improved 6. Polyglandular autoimmune def 7. Adrenal insufficiency on replacement, no hypotension 8. Hypothyroidism Plan: 1. Neuro: Mental status improved. Keep head of bed elevated. Aspiration precautions 2. CVS: Hemodyna,ically stable. Received almost 6L IVF since admission. UO good. Not tachycardic. 3. Resp: Mild pulm vascular congestion on CXR this morning. No resp distress, saturating well on RA. 4. Endo: Polyglandular autoimmune def with DKA after insulin pump was non- functioning. DKA resolved. Received 15 units Lantus. Actual requirement unclear. Is also in short acting insulin coverage AC and HS. Will request endocrine consult. c/w thyroid replacement. Pt on fludrocortisone and hydrocortisone for adrenal insufficiency. Will continue to check bl sugar every 2 hrs, will monitor BMP closely 5. Renal: Hyponatremia sec to hyperglycemia, corrected sodium is normal. Potassium is within normal limits. UO good, on positive fluid balance 6. GI: Carbohydrate diet started this am. 7. Musculoskeletal: Out of bed to chair Pt had Rt IJ line placed in ED 04/22/18 for IV access and frequent blood draws. To obtain peripheral access this am and d/c IJ Plan of care discussed with bedside fire patrol Time: 30 min
[2018-04-23] MEDS: Fludrocortisone Acetate TAB* 0.1 MG PO SCH (08:42)
[2018-04-23] MEDS ORDERED: Hydrocortisone TAB* 5 MG PO SCH ×2 (09:00→18:00)
[2018-04-23] MEDS ORDERED: Levothyroxine INJ* 100 MCG/5 ML VIAL IV SCH (09:00)
[2018-04-23] MEDS: Magnesium Oxide TAB* 400 MG PO SCH (10:30)
--- NOTE | 2018-04-23 10:37 | CONSULT ---
Consult Consult: [facility] Inpatient Consult Note Date of Consult: 04/23/18 Reason for Consult: insulin-deficient diabetes Reason for Admission: DKA ASSESSMENT: 73 yo F with autoimmune diabetes, primary adrenal insufficiency and hypothyroidism. Presentation is suspicious for pump failure ~48 hours prior to admission. Rapid resolution of clinical syndrome is typical for her recent admissions for DKA and she appears well at the time of my examination. See recommendations below. Food and medication insecurity have been significant issues for her in the past 6 months since the loss of her ; this will need to be discussed with her friend/neighbor who has assumed some oversight of her recently. 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 Patient is unreliable historian at baseline and unable to provide accurate history. She tells me that she experienced a failure of her insulin pump on Friday 04/20 and notified the exchange architect ([employer]) of the need for replacement. Although she keeps basal insulin on hand in case of pump failure, she did not use this and notified progressive hyperglycemia over the next 48 hours. Her neighbor ( Kenton Alexander) observed delirium on 04/22/18 and promptly arranged for transport to [facility], where severe hyperglycemia >600mg/dL and moderate metabolic acidosis with anion gap >20 was noted. Gap closed <12 hours after admission with IV insulin in ED/ICU. She was transferred to floor <24 hours after admission. This is her third admission for DKA in the past 6 months. Her of 50 years in late October 2017. Since then, she has been out of her diet and insulin routine and has been hospitalized twice in November 2017 for hyperglycemia and DKA. She has poor recollection of these admissions. She tells me that she has not previously experienced DKA despite several decades of diabetes. Past Medical History: Medications Prior to Admission: Fludrocortisone Acetate TAB* [Florinef TAB*] 0.05 mg PO DAILY 04/25/17 [History Confirmed 04/22/18] Levothyroxine TAB* [Synthroid 88 MCG TAB*] 88 mcg PO SUMOTUWETHSA 04/25/17 [ History Confirmed 04/22/18] Aspirin EC TAB* [Ecotrin EC Low Dose 81 MG*] 81 mg PO DAILY 12/06/17 [History Confirmed 04/22/18] Escitalopram (NF) [Lexapro 10 mg (NF)] 5 mg PO DAILY 12/06/17 [History Confirmed 04/22/18] Pravastatin (NF) [Pravachol (NF)] 10 mg PO QPM 01/01/18 [History Confirmed 04/22] Clobetasol Propionate [Clobex] 0.05 % TOPICAL BID PRN 04/22/18 [History Confirmed 04/22/18] Hydrocortisone TAB* [Cortef*] 2.5 mg PO QPM 04/22/18 [History Confirmed 04/22/18 ] Hydrocortisone TAB* [Cortef*] 7.5 mg PO QAM 04/22/18 [History Confirmed 04/22/18 ] Insulin LISPRO* [HumaLOG*] via pump with settings below: 0000 - 0.575 units/hr 0700 - 0.675 1200 - 0.650 2000 - 0.600 Lactobacillus Acidophilus [Probiotic Acidophilus] 1 tab PO DAILY 04/22/18 [ History Confirmed 04/22/18] LevoCETirizine TAB (NF) [Xyzal TAB (NF)] 5 mg PO DAILY 04/22/18 [History Confirmed 04/22/18] Levothyroxine TAB* [Synthroid TAB*] 44 mcg PO FR 04/22/18 [History Confirmed ] Ubidecarenone [Co Q-10] 100 mg PO DAILY 04/22/18 [History Confirmed 04/22/18] hydrOXYzine HCL TAB* [Atarax 25 MG TAB*] 25 mg PO QID PRN 04/22/18 [History Confirmed 04/22/18] Inpatient Medications: Acetaminophen (Tylenol Tab*) 650 mg PO Q4H PRN PRN Reason: FEVER/PAIN Dextrose (D50w Syringe 50 Ml*) 12.5 gm IV PUSH .FOR FS < 60 - SS PRN PRN Reason: FS < 60 Dextrose (D50w Syringe 50 Ml*) 12.5 gm IV PUSH .FOR FS < 60 - SS PRN PRN Reason: FS < 60 Fludrocortisone Acetate (Florinef Tab*) 0.05 mg PO DAILY [facility] Last Admin: 04/23/18 08:42 Dose: 0.05 mg Heparin Sodium (Porcine) (Heparin Vial(*)) 5,000 units SUBCUT Q8HR [facility] Last Admin: 04/23/18 06:25 Dose: 5,000 units Hydrocortisone (Cortef Tab*) 2.5 mg PO QPM DAVID Hydrocortisone (Cortef Tab*) 7.5 mg PO QAM [facility] Last Admin: 04/23/18 08:43 Dose: 7.5 mg Sodium Chloride (Ns 0.9% 1000 Ml*) 1,000 mls @ 100 mls/hr IV PER RATE [facility] Last Admin: 04/23/18 02:13 Dose: 100 mls/hr Insulin Glargine (Lantus(*)) 10 units SUBCUT Q24H [facility] Last Admin: 04/23/18 01:19 Dose: 10 units Insulin Human Lispro (Humalog*) 0 units SUBCUT AC [facility]; Protocol Last Admin: 04/23/18 10:26 Dose: 3 units Insulin Human Lispro (Humalog*) 0 units SUBCUT AC [facility]; Protocol Last Admin: 04/23/18 07:51 Dose: 4 units Levothyroxine Sodium (Synthroid Tab*) 88 mcg PO SuMoTuWeThSa@0600 [facility] Last Admin: 04/23/18 06:30 Dose: 88 mcg Levothyroxine Sodium (Synthroid Tab*) 44 mcg PO Fr@0600 [facility] Magnesium Oxide (Magox 400 Tab*) 400 mg PO DAILY [facility] Stop: 04/24/18 23:59 Last Admin: 04/23/18 10:30 Dose: 400 mg Pravastatin Sodium (Pravachol (Nf)) 10 mg PO QPM [facility] Allergies/Intolerances: statins, fluoroquinolones, penicillins Social History: October 2017. Social support includes neighbor, Kenton. No alcohol or tobacco use. Family History: non-contributory -- no other family members with endocrine disorders or autoimmune diseases Review of Systems: As above. No recent illnesses. 12 system review is otherwise normal. OBJECTIVE: Vital Signs: Temp Pulse Resp BP Pulse Ox 98.2 F 74 22 114/47 98 04/23/18 16:04 04/23/18 16:04 04/23/18 16:04 04/23/18 16:04 04/23/18 16:04 General: alert, pleasant, oriented, no distress ENT: neck supple, no thyromegaly, no bruit is heard Chest: CTAB, no wheezing or crackles CV: RRR, no murmur Abdomen: soft, non-tender Extremities: no edema, distal pulses intact Skin: warm, dry, no rash Neuro: grossly intact motor/sensory in extremities Psych: restricted affect, pleasant Labs: Glucose Results Blood Glucose Monitoring POC Start: 04/22/18 18: 43 Freq: Q2H Status: Active Protocol: Document 04/22/18 21:00 302 Document 04/22/18 22:00 249 Document 04/22/18 23:00 200 Document 04/23/18 00:00 195 Document 04/23/18 04:11 286 WBC 7.6 10^3/ul (3.5-10.8) 04/23/18 04:10 RBC 3.83 10^6/ul (4.00-5.40) L 04/23/18 04:10 Hgb 11.7 g/dl (12.0-16.0) L 04/23/18 04:10 Hct 36 % (35-47) 04/23/18 04:10 MCV 93 fL (80-97) 04/23/18 04:10 MCH 31 pg (27-31) 04/23/18 04:10 MCHC 33 g/dl (31-36) 04/23/18 04:10 RDW 13 % (10.5-15) 04/23/18 04:10 Plt Count 179 10^3/ul (150-450) 04/23/18 04:10 MPV 8.5 fL (7.4-10.4) 04/23/18 04:10 Neut % (Auto) 81.4 % 04/23/18 04:10 Lymph % (Auto) 10.8 % 04/23/18 04:10 [place] % (Auto) 7.6 % 04/23/18 04:10 Eos % (Auto) 0.1 % 04/23/18 04:10 Baso % (Auto) 0.1 % 04/23/18 04:10 Absolute Neuts (auto) 6.2 10^3/ul (1.5-7.7) 04/23/18 04:10 Absolute Lymphs (auto) 0.8 10^3/ul (1.0-4.8) L 04/23/18 04:10 Absolute Monos (auto) 0.6 10^3/ul (0-0.8) 04/23/18 04:10 Absolute Eos (auto) 0 10^3/ul (0-0.6) 04/23/18 04:10 Absolute Basos (auto) 0 10^3/ul (0-0.2) 04/23/18 04:10 Absolute Nucleated RBC 0 10^3/ul 04/23/18 04:10 Nucleated RBC % 0 04/23/18 04:10 INR (Anticoag Therapy) 1.12 (0.77-1.02) H 04/23/18 04:10 ABG pH 7.30 (7.35-7.45) L 04/22/18 21:07 ABG pCO2 28 mmHg (35-45) L 04/22/18 21:07 ABG pO2 85 mmHg (80-100) 04/22/18 21:07 ABG HCO3 16.1 mmol/L (19-31) L 04/22/18 21:07 ABG O2 Saturation 98.9 % (95-98) H 04/22/18 21:07 ABG Base Excess -11.3 (-2.0-2.0) L 04/22/18 21:07 VBG pH 7.08 (7.33-7.43) L 04/22/18 16:12 VBG pCO2 41 mmHg (41-51) 04/22/18 16:12 VBG pO2 25 mmHg (35-45) L 04/22/18 16:12 VBG HCO3 9.9 mmol/L (24-28) L 04/22/18 16:12 VBG O2 Saturation 37.7 % (70-80) L 04/22/18 16:12 VBG Base Excess -17.2 (0-4) L 04/22/18 16:12 Sodium 129 mmol/L (135-145) L 04/23/18 08:30 Potassium 4.5 mmol/L (3.5-5.0) 04/23/18 08:30 Chloride 104 mmol/L (101-111) 04/23/18 08:30 Carbon Dioxide 18 mmol/L (22-32) L 04/23/18 08:30 Anion Gap 7 mmol/L (2-11) 04/23/18 08:30 BUN 22 mg/dL (6-24) 04/23/18 08:30 Creatinine 1.06 mg/dL (0.51-0.95) H 04/23/18 08:30 Est GFR ( Amer) 61.7 (>60) 04/23/18 08:30 Est GFR (Non-Af Amer) 51.0 (>60) 04/23/18 08:30 BUN/Creatinine Ratio 20.8 (8-20) H 04/23/18 08:30 Glucose 281 mg/dL (70-100) H 04/23/18 08:30 POC Glucose (mg/dL) 305 mg/dL (70-100) H 04/23/18 07:45 Lactic Acid 1.5 mmol/L (0.5-2.0) 04/23/18 04:10 Calcium 8.3 mg/dL (8.6-10.3) L 04/23/18 08:30 Magnesium 1.2 mg/dL (1.9-2.7) L 04/23/18 00:15 Total Bilirubin 0.60 mg/dL (0.2-1.0) 04/22/18 16:34 AST 13 U/L (13-39) 04/22/18 16:34 ALT 8 U/L (7-52) 04/22/18 16:34 Alkaline Phosphatase 53 U/L (34-104) 04/22/18 16:34 Troponin I 0.01 ng/mL (<0.04) 04/22/18 16:34 C-Reactive Protein 139.17 mg/L (<8.01) H 04/22/18 16:34 Total Protein 5.6 g/dL (6.4-8.9) L 04/22/18 16:34 Albumin 3.4 g/dL (3.2-5.2) 04/22/18 16:34 Globulin 2.2 g/dL (2-4) 04/22/18 16:34 Albumin/Globulin Ratio 1.5 (1-3) 04/22/18 16:34 Urine Color Straw 04/23/18 04:06 Urine Appearance Clear 04/23/18 04:06 Urine pH 5.0 (5-9) 04/23/18 04:06 Ur Specific [place] 1.005 (1.010-1.030) L 04/23/18 04:06 Urine Protein Negative (Negative) 04/23/18 04:06 Urine Ketones Trace (Negative) A 04/23/18 04:06 Urine Blood 1+ (Negative) A 04/23/18 04:06 Urine Nitrate Negative (Negative) 04/23/18 04:06 Urine Bilirubin Negative (Negative) 04/23/18 04:06 Urine Urobilinogen Negative (Negative) 04/23/18 04:06 Ur Leukocyte Esterase 3+ (Negative) A 04/23/18 04:06 Urine WBC (Auto) 3+(>20/hpf) (Absent) A 04/23/18 04:06 Urine RBC (Auto) 1+(3-5/hpf) (Absent) A 04/23/18 04:06 Ur Squamous Epith Cells Present (Absent) A 04/23/18 04:06 Urine Bacteria 1+ (Absent) A 04/23/18 04:06 Urine Glucose 2+(150 mg/dl) (Negative) A 04/23/18 04:06 Influenza A (Rapid) Negative (Negative) 04/22/18 19:05 Influenza B (Rapid) Negative (Negative) 04/22/18 19:05
[2018-04-23] MEDS ORDERED: Insulin LISPRO* 1 UNITS UNIT SUBCUT SCH (16:30)
[2018-04-23 16:45] LABS: EGFR Non-African American 52.1 (>60)
[2018-04-23] MEDS ORDERED: D5W 1/2 NS 1000 ML BAG* 1,000 ML IV SCH (17:00)
[2018-04-23] MEDS: CMC:Pravastatin (NF) 20 MG TAB PO SCH (17:51)
[2018-04-23] MEDS ORDERED: NS 0.9% 1000 ML* 1,000 ML IV SCH (21:15)
[2018-04-24] MEDS: Insulin LISPRO* 1 UNITS UNIT SUBCUT SCH ×8 (01:35→16:31)
[2018-04-24] MEDS: Insulin GLARGINE(*) 1 UNITS UNIT SUBCUT SCH ×3 (01:49→10:29)
[2018-04-24 05:12] LABS: ABS Basophils 0 10^3/ul (0-0.2); ABS Eosinophils 0.2 10^3/ul (0-0.6); ABS Lymphocytes 1.5 10^3/ul (1.0-4.8); ABS Monocytes 0.4 10^3/ul (0-0.8); ABS Neutrophils 3.9 10^3/ul (1.5-7.7); ABS Nucleated RBC 0 10^3/ul; Hematocrit 31 % (35-47); Hemoglobin 10.4 g/dl (12.0-16.0); Lymphocyte % 25.4 %; Mean Corpuscular HGB Conc 34 g/dl (31-36); Mean Corpuscular Hemoglobin 31 pg (27-31); Mean Corpuscular Volume 93 fL (80-97); Mean Platelet Volume 8.2 fL (7.4-10.4); Nucleated Red Blood Cells % 0.1; Platelet Count 143 10^3/ul (150-450); Red Blood Count 3.34 10^6/ul (4.00-5.40); Red Cell Distribution Width 13 % (10.5-15)
[2018-04-24 05:28] LABS: EGFR Non-African American 64.9 (>60)
[2018-04-24] MEDS: Heparin VIAL(*) 5000 UNITS/ML VIAL (FIVE THOUSAND) SUBCUT SCH ×3 (06:44→21:13)
[2018-04-24] MEDS: Levothyroxine TAB* 88 MCG TAB PO SCH (06:46)
[2018-04-24] MEDS: Hydrocortisone TAB* 5 MG PO SCH (07:20)
[2018-04-24] MEDS: Magnesium Oxide TAB* 400 MG PO SCH (07:21)
[2018-04-24] MEDS: Fludrocortisone Acetate TAB* 0.1 MG PO SCH (07:21)
[2018-04-24] MEDS ORDERED: Insulin LISPRO* 1 UNITS UNIT SUBCUT SCH (07:30)
[2018-04-24] MEDS ORDERED: Magnesium Sulfate 2 GM IV* 2 GM/50 ML BAG IVPB ONE (11:00)
[2018-04-24] MEDS: Potassium & Sodium Phos 250MG* = 1 PACKET PO SCH ×2 (14:55→21:13)
[2018-04-24] MEDS: CMC:Pravastatin (NF) 20 MG TAB PO SCH (17:17)
[2018-04-24] MEDS ORDERED: Hydrocortisone TAB* 5 MG PO SCH (18:00)
[2018-04-25] MEDS: Levothyroxine TAB* 88 MCG TAB PO SCH (05:39)
[2018-04-25] MEDS: Heparin VIAL(*) 5000 UNITS/ML VIAL (FIVE THOUSAND) SUBCUT SCH ×2 (05:39→12:41)
[2018-04-25 05:57] LABS: ABS Basophils 0 10^3/ul (0-0.2); ABS Eosinophils 0.2 10^3/ul (0-0.6); ABS Lymphocytes 1.5 10^3/ul (1.0-4.8); ABS Monocytes 0.3 10^3/ul (0-0.8); ABS Neutrophils 1.7 10^3/ul (1.5-7.7); ABS Nucleated RBC 0 10^3/ul; Eosinophil % 4.1 %; Hematocrit 32 % (35-47); Hemoglobin 10.6 g/dl (12.0-16.0); Lymphocyte % 39.5 %; Mean Corpuscular HGB Conc 33 g/dl (31-36); Mean Corpuscular Hemoglobin 31 pg (27-31); Mean Corpuscular Volume 92 fL (80-97); Nucleated Red Blood Cells % 0.1; Platelet Count 142 10^3/ul (150-450); Red Blood Count 3.45 10^6/ul (4.00-5.40); Red Cell Distribution Width 13 % (10.5-15); White Blood Count 3.7 10^3/ul (3.5-10.8)
[2018-04-25 06:14] LABS: EGFR Non-African American 80.9 (>60)
[2018-04-25] MEDS: Fludrocortisone Acetate TAB* 0.1 MG PO SCH (08:39)
[2018-04-25] MEDS: Potassium & Sodium Phos 250MG* = 1 PACKET PO SCH ×2 (08:39→12:41)
[2018-04-25] MEDS: Hydrocortisone TAB* 5 MG PO SCH (08:40)
[2018-04-25] MEDS: Insulin GLARGINE(*) 1 UNITS UNIT SUBCUT SCH (08:40)
[2018-04-25] MEDS: Insulin LISPRO* 1 UNITS UNIT SUBCUT SCH ×2 (08:40→12:08)
[2018-04-25 10:44] VITALS: BP 108/52
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
[2018-04-26] MEDS ORDERED: Levothyroxine TAB* 88 MCG TAB PO SCH ×2 (06:00→18:49)
[2018-04-26] MEDS ORDERED: Levothyroxine INJ* 100 MCG/5 ML VIAL IV SCH (09:00)
--- NOTE | 2018-05-11 16:02 | DS ---
CC: Dr. Bryan Nunez. DISCHARGE SUMMARY: DATE OF ADMISSION: 04/22/18 DATE OF DISCHARGE: 04/25/18 DISCHARGE DIAGNOSES: 1. Diabetic ketoacidosis. 2. Type 1 diabetes mellitus. 3. Looney syndrome. 4. Hypothyroidism. 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 6. Noncompliance with medical regimen. 7. Hyperlipidemia. 8. Depression. 9. Mild cognitive impairment. 10. Metabolic encephalopathy due to diabetic ketoacidosis. 11. Anemia of acute illness. 12. Thrombocytopenia. 13. Volume depletion. 14. Positive urine culture for E. coli, urinary tract infection versus colonization . 15. Acute kidney injury, resolved. HISTORY: Radha Wright is a 73-year-old woman admitted with change in mental status due to diabetic ketoacidosis. Please see the dictated admission note for details of the present illness, past medical history, family history, social and personal history, review of systems, and physical examination. LABORATORY DATA: CBC on admission WBC 11.6, H and H 12.8/42, MCV 100, PLT 181, 000. White count came down to 3.7 on 04/25/18. H and H was 10.4/31 on 04/24/18 , 10.6/32 on 04/25/18. Platelet count was 142,000 on 04/25/18. INR was 1.12 on 04/23/18. VBGs on 04/22/18, pH 7.08, pCO2 41, pO2 25. ABGs on 04/22/18, pH 7.30, pCO2 28, pO2 85. Chemistries on 04/22/18, sodium 122, potassium 5.4, chloride 90, CO2 10, anion gap 22, BUN 36, creatinine 2.21. Glucose was 677, calcium 9. Rest of her comprehensive metabolic panel was abnormal for total protein of 5.6. Chemistries prior to discharge, sodium 136, potassium 4.0, chloride 109, CO2 25, BUN and creatinine 12/0.71, phosphorus 2.3, magnesium 1.7. Fingerstick blood sugars on the day of discharge were 198/269. Urinalysis : Straw, clear, specific gravity 1.005, pH 5. Dipstick is positive for trace ketones, 1+blood, 3+ esterase, 3+ wbc's, 1+ rbc's, squamous epithelials present , bacteria 1+, urine glucose 2+. Urine culture showed E. coli 75,000 to 100, 000 colonies. Nasal screen was negative for MRSA. Influenza testing was negative. IMAGING: Chest x-ray on 04/22/18 showed no evidence of acute findings. Portable chest x-ray on 04/22/18 repeat showed tip of right internal jugular central venous catheters at the level of the superior vena cava, right atrial junction; negative for pneumothorax; probable pulmonary vascular congestion with mild alveolar and interstitial edema. EKG on 04/22/18, sinus tachycardia, low voltage precordial leads, otherwise normal. HOSPITAL COURSE: The patient initially came to the emergency room. She received IV fluids, insulin. Central line was placed. She was admitted to the ICU. We felt that noncompliance was the reason for the ketoacidosis. She was started on an insulin drip. She received 3 L of IV fluids initially. Then, she was placed on normal saline at 200 cc an hour. After her sugar dropped below 250s, the plan was to switch her to D5 half normal at 150, continue the insulin drip protocol. 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 She was switched to IV Synthroid to treat her hypothyroidism. She was continued on her other usual medications for hyperlipidemia and depression. She was placed on heparin subcutaneously for DVT prophylaxis. She was a full code. Initially, she had altered mental status , which improved as her blood sugar came down and she was rehydrated. By the day following admission, she had received almost 6 L of IV fluids. Her urine outpatient was good. Her tachycardia had resolved. She did have mild pulmonary vascular congestion on chest x-ray. She was saturating well on room air. Her blood sugars were closely followed. Her hyponatremia improved. Her BUN and creatinine came down. She started eating on the day following admission. She was seen in endocrine consultation by Dr. Nunez. He recommended Lantus 12 units in the morning and Humalog 4 units 3 times a day a.c. He recommended against sliding-scale insulin due to the risk of hypoglycemia. He expressed concern of the patient's ability to self-manage her condition. He spoke with her neighbor, who felt that she was having trouble managing at home. We discussed her case and both felt that she would be better using an insulin pen than the pump.Her magnesium and phosphorus were repleted. By the time of discharge, she was eating 30% to 80% on her meals. She felt ready to go home. Her vital signs were stable. Blood pressure 107/56, pulse 58, respirations 18, temperature 98.1, O2 sat 98%. Her lungs were clear and her heart was regular. I discussed with Dr. Nunez, who recommended insulin therapy as follows; 14 units of Lantus daily with 4 units of Humalog with meals.Her urine culture did grow Escherichia coli but it was felt likely to be colonization and she had no symptoms and it did not seem that the urine was a clean catch based on the urinalysis.. DISCHARGE MEDICATIONS: She was discharged on the following medication: 1. Lantus 14 units daily. 2. Humalog 4 units daily. 3. Acetaminophen 650 p.o. q.4 h. p.r.n. 4. Levothyroxine 88 mcg daily, 6 days a week, and 44 mcg 1 day a week. 5. Levocetirizine 5 mg daily. 6. Hydroxyzine 25 mg q.i.d., p.r.n. 7. Hydrocortisone 10 mg in the morning and 2.5 mg in the afternoon. 8. Baby aspirin daily. 9. Pravastatin 10 mg each evening. 10. Escitalopram 5 mg daily. 11. Fludrocortisone 0.1 mg one half daily. 12. Probiotic one daily. 13. CoQ10 100 mg daily. FOLLOWUP: She is to follow up with my office in 4 to 7 days. She is to be on a consistent carbohydrate diet. She is to be also followed by the [facility] nursing project coordinator. DIET: Regular. ACTIVITY: As tolerated. [id number]/[facility] #: [id number] GEOVANNA
== END 2018-04-25 13:30 | disposition home or self-care (01) | DRG 637 ==
LOC: ED 14:56 → ICU 19:07 → MED 04-23 11:41
PROVIDERS: ADMIT Pediatrics; ATTEND Internal Medicine Geriatric Medicine
PROC: 02HV33Z Insertion of Infusion Device into Superior Vena Cava, Percutaneous Approach (ICD-10-PCS; principal; 2018-04-22)
DX: E10.10 Type 1 diabetes mellitus with ketoacidosis without coma (principal); G93.41 Metabolic encephalopathy; E27.1 Primary adrenocortical insufficiency; E87.1 Hypo-osmolality and hyponatremia; E78.5 Hyperlipidemia, unspecified; E31.0 Autoimmune polyglandular failure; F32.9 Major depressive disorder, single episode, unspecified; E03.9 Hypothyroidism, unspecified; Z88.8 Allergy status to other drugs, medicaments and biological substances; Z88.0 Allergy status to penicillin; Z98.42 Cataract extraction status, left eye; Z98.41 Cataract extraction status, right eye; Z83.3 Family history of diabetes mellitus; Z87.891 Personal history of nicotine dependence; Z98.51 Tubal ligation status; Z91.14 Patient's other noncompliance with medication regimen; Z79.890 Hormone replacement therapy
CPT/HCPCS: 36415; 36600; 71045; 80048; 80053; 81003; 81015; 82607; 82803; 83605; 83735; 84100; 84443; 84484; 85025; 85610; 86140; 87040; 87077; 87086; 87186; 87641; 93005; 99285; A9270-GY; J1644; J1720; J1815; J3475